=== PATIENT | male | born 1965 | race Caucasian/White ===

== ENCOUNTER 2020-06-12 16:08 | Outpatient (CLI) | payer OTHER, SELFPAY ==
[2020-06-12 16:34] LABS: Basophils Percent Auto 0.8 % (0.2-1.2); Hematocrit 30.3 % (42.0-52.0); Hemoglobin 9.7 g/dL (14.0-18.0); Immature Granulocyte Absolute 0.01 K/mm3 (0.00-0.031); Immature Granulocyte Percent A 0.8 % (0-0.5); Immature Platelet Fraction Pct 2.2 % (0.9-11.2); Lymphocytes Absolute Auto 0.63 K/mm3 (0.9-3.2); Lymphocytes Percent Auto 51.6 % (18.3-44.2); Mean Corpuscular Hemoglobin 29.8 pg (26-34); Mean Corpuscular Volume 93.2 fl (80-100); Mean Platelet Volume 9.1 fl (7.4-10.4); Monocytes Absolute Auto 0.2 K/mm3 (0.1-0.6); Monocytes Percent Auto 14.8 % (2.6-8.5); Neutrophils Absolute Auto 0.4 K/mm3 (1.3-6.7); Nucleated Red Blood Cells Perc 3.3 % (0.0-0.2); Platelet Count Result 56 k/mm3 (150-375); Red Blood Count 3.25 M/mm3 (4.6-6.20); Red Cell Distribution Width 20.3 % (11.5-14.5)
[2020-06-12 16:47] LABS: Alanine Aminotransferase 14 U/L (4-50); Albumin Level 4.3 g/dL (3.5-5.1); Alkaline Phosphatase 42 U/L (38-126); Anion Gap 7 mmol/L (8-16); Aspartate Amino Transferase 24 U/L (17-59); Bilirubin,Total 0.9 mg/dL (0.2-1.3); Blood Urea Nitrogen 18 mg/dL (9-20); Calcium 9.6 mg/dL (8.4-10.2); Carbon Dioxide 31 mmol/L (22-30); Chloride 103 mmol/L (98-107); Estimated Glomerular Filt Rate > 60; Glucose 96 mg/dL (75-110); Potassium 4.5 mmol/L (3.4-5.0); Sodium 141 mmol/L (137-145)
[2020-06-12 17:00] LABS: White Blood Count 1.2 K/mm3 (4.5-10.0)
[2020-06-12 17:04] LABS: Add Urine Microscopic? YES; Appearance Urine Clear (Clear); Bacteria Urine Trace /hpf; Bilirubin Urine Negative (Negative); Blood Urine Negative (Negative); Color Urine Yellow (Yellow); Glucose Urine UA Negative (Negative); Ketones Urine Negative (Negative); Leukocyte Esterase Ur Negative LEU/UL (NEGATIVE); Mucus Urine Few /lpf; Nitrate Urine Negative (Negative); Protein Urine Negative (Negative); RBC Urine 0-2 /hpf (0-2); Specific Grav Ur 1.023 (1.001-1.035); Urobilinogen Urine Negative mg/dL (<2.0); WBC Urine 0-3 /hpf (0-3)
[2020-06-12 17:17] LABS: Prostate Specific Antigen < 0.1 ng/mL (< OR = 4.0)
[2020-06-12 17:35] LABS: Hemoglobin A1C 5.3 % (<5.7)
== END 2020-06-12 16:09 | disposition home or self-care (01) ==
PROVIDERS: PCP Family Medicine; Visit Provider Physician Assistant
DX: C61 Malignant neoplasm of prostate (principal); R10.9 Unspecified abdominal pain
CPT/HCPCS: 36415; 80053; 81001; 83036; 84153; 84443; 85025; 85055

== ENCOUNTER → 2020-06-16 12:34 | Outpatient (CLI) | payer OTHER, SELFPAY ==
--- NOTE | ~2020-06-16 | US_ITS ---
EXAMINATION: US soft tissue abdomen EXAM DATE: 06/16/2020 13:41 INDICATION: Left upper quadrant palpable area. TECHNIQUE: Multiple grayscale and Doppler images of the symptomatic left upper quadrant region were o btained (by a technologist who performed the scan) and subsequently reviewed. There is no prior stud y for comparison. FINDINGS: Palpable abnormality corresponds to a spleen measured at 19.3 x 9.6 cm, which is significantly enlarg ed. Within this there is a nonspecific 1.6 cm hypoechoic region. Please note that most focal splenic lesions are benign. IMPRESSION: 1. Moderate to severe splenomegaly. 2. Small nonspecific splenic lesion. Reviewed, dictated and finalized at location B.
== END ==
PROVIDERS: PCP Family Medicine; Visit Provider Physician Assistant
DX: R19.00 Intra-abdominal and pelvic swelling, mass and lump, unspecified site (principal); R68.81 Early satiety; R16.1 Splenomegaly, not elsewhere classified
CPT/HCPCS: 76705

== ENCOUNTER 2020-06-17 21:57 | Emergency (ER) | payer OTHER, SELFPAY ==
--- NOTE | ~2020-06-17 | CT_ITS ---
EXAMINATION: CT abdomen pelvis w con INDICATION: Abdominal pain and swelling TECHNIQUE: Computed tomographic images of the abdomen and pelvis were obtained after the administrati on of 100 cc of Omnipaque 350 intravenous contrast. The dose-length product (DLP) was 593.02 mGy-cm. Automated exposure control and iterative reconstruction technique were employed. COMPARISON: None available FINDINGS: Minimal dependent atelectasis is present in the lung bases. The heart size is normal. The l iver, pancreas, gallbladder, and adrenal glands are normal. The enlarged spleen measures 19.9 cm. The re is a 4.5 cm cyst of the right kidney. The left kidney is unremarkable. No pathologically enlarged abdominal or pelvic lymph nodes are identified. There is no free intraperitoneal gas or evidence of b owel obstruction. The appendix is normal. A fat-containing umbilical hernia is noted. There is mild l umbar spondylosis. IMPRESSION: 1. Nonspecific splenomegaly. Reviewed, dictated and finalized at location A.
[2020-06-17 22:00] VITALS: BP 138/69; PULSE 75; RESP 16; TEMP 36.2; O2SAT 100
[2020-06-17 22:17] LABS: Hematocrit 30.3 % (42.0-52.0); Hemoglobin 9.7 g/dL (14.0-18.0); Immature Platelet Fraction Pct 2.2 % (0.9-11.2); Mean Corpuscular Volume 93.8 fl (80-100); Mean Platelet Volume 9.2 fl (7.4-10.4); Platelet Count Result 49 k/mm3 (150-375); Red Blood Count 3.23 M/mm3 (4.6-6.20); Red Cell Distribution Width 19.9 % (11.5-14.5)
[2020-06-17 22:27] LABS: Alanine Aminotransferase 16 U/L (4-50); Albumin Level 4.5 g/dL (3.5-5.1); Alkaline Phosphatase 47 U/L (38-126); Anion Gap 9 mmol/L (8-16); Aspartate Amino Transferase 29 U/L (17-59); Bilirubin,Total 1.3 mg/dL (0.2-1.3); Blood Urea Nitrogen 16 mg/dL (9-20); Calcium 9.1 mg/dL (8.4-10.2); Carbon Dioxide 28 mmol/L (22-30); Chloride 104 mmol/L (98-107); Estimated CRCL calculation 67 ml/min; Estimated Glomerular Filt Rate > 60; Glucose 96 mg/dL (75-110); Lipase 58 U/L (23-300); Potassium 3.9 mmol/L (3.4-5.0); Sodium 141 mmol/L (137-145)
[2020-06-17 22:36] LABS: White Blood Count 1.1 K/mm3 (4.5-10.0)
[2020-06-17 22:37] LABS: Lymphocytes Absolute Manual 0.66 K/mm3 (1.1-4.5); Neutrophils Percent Manual 40 % (46-73); Platelet Estimate Decreased (Adequate); Total Cells Counted 10
[2020-06-17 22:38] LABS: Anisocytosis 3+ (NORMAL); Hypochromasia 1+ (NORMAL)
[2020-06-17 22:39] LABS: Polychromasia 1+ (NORMAL)
[2020-06-17 22:40] LABS: Ovalocytes 1+ (NORMAL)
--- NOTE | 2020-06-17 22:54 | ED.GENADULT ---
HPI - General Adult General Chief complaint: Abdominal Pain Stated complaint: abd pain, ROSSI Time Seen by Provider: 06/17/20 22:41 Source: patient History of Present Illness HPI narrative: Patient is a 54 y/o male complaining right side headache starting 4-5 hours ago. He describes his headache as an ache and rates it as 7/10. He has history of migraine and this headache feels like a migraine. He took Rizatriptan for migraine, but it did not help immediately. He has some nausea. He also noticed a knot on left upper abdomen. There is no significant abdominal pain. Related Data Home Medications Medication Instructions Recorded Confirmed urbnrwrrlh-asqvnlz-kvtttxfc 50 1 tablet PO Q4-6H PRN 08/22/19 mg-325 mg-40 mg tablet multivitamin 1 tablet PO DAILY 08/22/19 omeprazole 20 mg capsule,delayed 20 mg PO BID 08/22/19 release sildenafil 100 mg tablet 100 mg PO DAILY PRN 08/22/19 Allergies Allergy/AdvReac Type Severity Reaction Status Date / Time No Known Allergies Allergy Unverified 06/12/20 15:46 Review of Systems Constitutional: Constitutional: Denies chills, Denies fever(s), Reports headache(s) and Denies weakness Eyes: Eyes: Denies blurry vision ENT: Reports headache(s) and Denies neck pain Cardiovascular: Cardiovascular: Denies chest pain and Denies dyspnea Respiratory: Respiratory: Denies cough and Denies dyspnea Gastrointestinal: Gastrointestinal: Reports as per HPI, Denies abdominal pain, Denies diarrhea, Reports nausea and Denies vomiting Comments: abdominal mass Genitourinary: Genitourinary: Denies hematuria and Denies dysuria Musculoskeletal: Musculoskeletal: Denies back pain and Denies neck pain Neurologic: Reports headache(s) and Denies weakness [facility] Past Medical History Medical History Cubital tunnel syndrome on left Medial epicondylitis, left elbow Nevus of scalp Surgical History Surgical History S/P prostatectomy Family History Family History Father Malignant neoplasm of prostate Family history of malignant neoplasm of brain Social History Social History Smoking status: Never smoker Alcohol intake: never Substance use: never Gender identity (if verbalized by the patient): Male Exam Const: General: no acute distress and well developed Orientation/consciousness: oriented to person, oriented to place, oriented to time and patient oriented x3 HENMT: Head: normocephalic Ears: external ears normal General nose exam: Normal external nose present Eyes: General: appearance normal, both eyes and all related structures Conjunctivae: conjunctivae normal Neck: Neck: normal visual inspection and full ROM Chest: Chest palpation & inspection: normal inspection of the chest and no tenderness Resp: Effort & Inspection: normal respiratory effort Auscultation: clear to auscultation bilaterally Cardio: Rate: regular rate Rhythm: regular rhythm GI: GI Palp: No abdominal tenderness, Yes Soft to palpation and Yes Palpable mass present (left upper quadrant) Skin: General skin exam: normal color and turgor normal Neuro: General: oriented to person, oriented to place, oriented to time and patient oriented x3 Cognition (Neuro): normal cognition Extrem: General: normal to inspection, full ROM and no pedal edema Psych: Appearance: grossly normal Mental Status: mental status grossly normal Affect: normal affect Course Consultations Consultation #1: Discussed with Dr. Borja (hem/onc) regarding patient's pancytopenia and splenomegaly, who recommends discharge and he will follow up as outpatient. Date: 06/17/20 Time: 23:55 Vital Signs Vital signs: Vital Signs Temperature 36.2 C L 06/17/20 22:00 Pulse Rate 75 06/17/20 22:00 Respiratory Rate 16 06/17/20 22:00
[2020-06-17 22:58] LABS: Add Urine Microscopic? NO; Appearance Urine Clear (Clear); Bilirubin Urine Negative (Negative); Blood Urine Negative (Negative); Color Urine Straw (Yellow); Glucose Urine UA Negative (Negative); Ketones Urine Negative (Negative); Leukocyte Esterase Ur Negative LEU/UL (Negative); Nitrate Urine Negative (Negative); Protein Urine Negative (Negative); Specific Grav Ur 1.006 (1.001-1.035); Urobilinogen Urine Negative mg/dL (<2.0)
[2020-06-17] MEDS: KETOROLAC 15 MG/ML VIAL (*BKC) IV PUSH (23:08)
[2020-06-17] MEDS: diphenhydrAMINE HCl INJ 50 MG/ML VIAL 25 MG IV PUSH (23:08)
[2020-06-17] MEDS: METOCLOPRAMIDE HCL INJ 10 MG/2 ML VIAL IV PUSH (23:08)
[2020-06-17] MEDS: SODIUM CHLORIDE 0.9% IV 1,000 ML 999 ML IV CONT (23:09)
[2020-06-17 23:15] LABS: Monoscreen Negative (Negative); Negative Monotest Control Negative (Negative); Positive Monotest Control Positive (Positive)
[2020-06-18 00:15] VITALS: BP 128/70; PULSE 86; RESP 18; O2SAT 100
--- NOTE | 2020-06-18 00:15 | PC.NURSE ---
pt requesting to have fluids stopped at this time. 400mL infused as stated per MAR.
== END 2020-06-18 00:17 | disposition home or self-care (01) ==
PROVIDERS: Emergency Medicine; Emergency Provider Emergency Medicine; PCP Family Medicine
DX: G43.909 Migraine, unspecified, not intractable, without status migrainosus (principal); D61.818 Other pancytopenia; R16.1 Splenomegaly, not elsewhere classified; Z90.79 Acquired absence of other genital organ(s)
CPT/HCPCS: 36415; 74177; 80053; 81003; 83690; 85025; 85055; 86308; 96361; 96374; 96375; 99284; J1200; J1885; J2765; J7030; Q9967

== ENCOUNTER 2020-10-21 09:49 | Outpatient (CLI) | payer OTHER, SELFPAY ==
[2020-10-21 10:17] LABS: Cholesterol 132 mg/dL (0-200); HDL Direct 56 mg/dL; Triglycerides 56 mg/dL (<150)
[2020-10-21 10:29] LABS: LDL Cholesterol Direct 56 mg/dL
== END 2020-10-21 09:50 | disposition home or self-care (01) ==
LOC: ANHLAB 09:51
PROVIDERS: PCP Family Medicine; Visit Provider Family Medicine
DX: E78.5 Hyperlipidemia, unspecified (principal); I10 Essential (primary) hypertension
CPT/HCPCS: 36415; 80061

== ENCOUNTER 2020-10-25 19:39 | Emergency (ER) | payer OTHER, SELFPAY ==
--- NOTE | ~2020-10-25 | CT_ITS ---
EXAMINATION: CT abdomen pelvis w con DATE: 10/25/2020 21:30 INDICATION: Pelvic pain TECHNIQUE: Computed tomography (CT) of the abdomen and pelvis was performed with 100 mL Omnipaque-350 intravenous contrast. Automated exposure control and iterative reconstruction technique were employe d. The dose-length product was 367.63 mGy-cm. COMPARISON: 06/17/2020 FINDINGS: Minimal dependent atelectasis in the bilateral lower lobes. Heart size is normal. No pericardial or p leural effusion. Mild central intrahepatic third ductal dilation. Common bile duct is normal in calib er. Normal decompressed gallbladder. Increase, left kidney and bilateral adrenal glands are normal. 4 .1 cm partially exophytic cyst at the lower pole of the right kidney. There is a tiny subtle central density suggesting a thin septation which would render this a Bosniak 2 cyst. Spleen is now normal wi th resolution of prior splenomegaly. Bladder is normal. Status post prostatectomy. No abnormal bowel wall thickening or obstruction. Normal appendix. No free intraperitoneal gas or fluid. No pathologica lly enlarged abdominal or pelvic lymphadenopathy. Small fat-containing umbilical hernia. Mild lumbar dextrocurvature. A few bone islands in the bilateral femoral heads and at the right supra-acetabular region. IMPRESSION: 1. No acute intra-abdominal/pelvic process. Reviewed, dictated and finalized at location A. DATION COORDINATOR
[2020-10-25 19:46] VITALS: BP 130/74; PULSE 63; RESP 16; TEMP 36.3; O2SAT 99
[2020-10-25 21:05] LABS: Basophils Percent Auto 0.4 % (0.2-1.2); Eosinophils Percent Auto 0.4 % (0-4.4); Hematocrit 38.7 % (42.0-52.0); Hemoglobin 12.5 g/dL (14.0-18.0); Immature Granulocyte Absolute 0.02 K/mm3 (0.00-0.031); Immature Granulocyte Percent A 0.9 % (0-0.5); Immature Platelet Fraction Pct 2.6 % (0.9-11.2); Lymphocytes Absolute Auto 0.28 K/mm3 (0.9-3.2); Lymphocytes Percent Auto 12.3 % (18.3-44.2); Mean Corpuscular HGB Conc 32.3 g/dl (32-36); Mean Corpuscular Hemoglobin 30.8 pg (26-34); Mean Corpuscular Volume 95.3 fl (80-100); Monocytes Absolute Auto 0.2 K/mm3 (0.1-0.6); Monocytes Percent Auto 8.8 % (2.6-8.5); Neutrophils Absolute Auto 1.8 K/mm3 (1.3-6.7); Neutrophils Percent Auto 77.2 % (45.5-73.1); Platelet Count Result 126 k/mm3 (150-375); Red Blood Count 4.06 M/mm3 (4.6-6.20); Red Cell Distribution Width 16.5 % (11.5-14.5); White Blood Count 2.3 K/mm3 (4.5-10.0)
[2020-10-25 21:08] LABS: Add Urine Microscopic? NO; Appearance Urine Clear (Clear); Bilirubin Urine Negative (Negative); Blood Urine Negative (Negative); Color Urine Yellow (Yellow); Glucose Urine UA Negative (Negative); Ketones Urine Negative (Negative); Leukocyte Esterase Ur Negative LEU/UL (Negative); Nitrate Urine Negative (Negative); Protein Urine Negative (Negative); Specific Grav Ur 1.024 (1.001-1.035); Urobilinogen Urine Negative mg/dL (<2.0)
[2020-10-25 21:17] LABS: Alanine Aminotransferase 37 U/L (4-50); Alkaline Phosphatase 52 U/L (38-126); Anion Gap 5 mmol/L (8-16); Aspartate Amino Transferase 33 U/L (17-59); Bilirubin,Total 0.7 mg/dL (0.2-1.3); Blood Urea Nitrogen 20 mg/dL (9-20); Calcium 9.3 mg/dL (8.4-10.2); Carbon Dioxide 30 mmol/L (22-30); Chloride 106 mmol/L (98-107); Estimated Glomerular Filt Rate > 60; Glucose 117 mg/dL (75-110); Potassium 4.5 mmol/L (3.4-5.0); Sodium 141 mmol/L (137-145)
[2020-10-25 21:36] LABS: Lactic Acid Reflex 0.9 mmol/L (0.7-2.1)
--- NOTE | 2020-10-25 22:22 | ED.GENADULT ---
HPI - General Adult General Chief complaint: Unspecified Stated complaint: rectal pain X 1 month Time Seen by Provider: 10/25/20 20:15 History of Present Illness HPI narrative: Patient is a 55-year-old gentleman who presents the emergency department with chief complaint of rectal pressure. Patient states that he has a fullness in his rectal area and states that he has had no fever or chills does report that he has history of hairy cell leukemia. And is actually been having low white blood cell counts. The patient states that he has had chronic loose stool from the medications that he has been on denies any burning with urination or frequent urination. Patient reports he has been seen by his primary care physician who did an external exam and did not find any abnormalities. Related Data Home Medications Medication Instructions Recorded Confirmed pcsyzmuomg-elwmuxx-uxmkamsv 50 1 tablet PO Q4-6H PRN 08/22/19 10/21/20 mg-325 mg-40 mg tablet multivitamin 1 tablet PO DAILY 08/22/19 10/21/20 omeprazole 20 mg capsule,delayed 20 mg PO BID 08/22/19 10/21/20 release sildenafil 100 mg tablet 100 mg PO DAILY PRN 08/22/19 10/21/20 Allergies Allergy/AdvReac Type Severity Reaction Status Date / Time prochlorperazine AdvReac Other Verified 10/25/20 19:50 [From Compazine] Review of Systems Review of Systems: Narrative: A 10 system review of systems was completed on the patient and is negative except for what is stated in the HPI. Nursing and ancillary documentation was reviewed. [facility] Past Medical History Medical History Cubital tunnel syndrome on left Hairy cell leukemia Medial epicondylitis, left elbow Nevus of scalp Surgical History Surgical History S/P prostatectomy Family History Family History Father Malignant neoplasm of prostate Family history of malignant neoplasm of brain Social History Social History Smoking status: Never smoker Alcohol intake: never Substance use: never Gender identity (if verbalized by the patient): Male Exam Narrative: Exam Narrative: GENERAL: Well-appearing, well-nourished, and in no acute distress. HEAD: Normocephalic, atraumatic. EYES: PERRLA and EOMI. ENT: Nares clear, no rhinorrhea or epistaxis. Mucous membranes moist. NECK: Supple. CHEST: Clear to auscultation. No respiratory distress. HEART: Regular rate and rhythm. No murmur heard. Normal peripheral pulses. ABDOMEN: Soft, nontender, nondistended, normal active bowel sounds. EXTREMITIES: Normal range of motion. No edema. SKIN: Warm, dry, no rash. NEURO: No focal deficits. Alert and oriented x3. PSYCH: Normal mood and affect. Course Vital Signs Vital signs: Vital Signs Temperature 36.3 C L 10/25/20 19:46 Pulse Rate 63 10/25/20 19:46 Respiratory Rate 16 10/25/20 19:46 Blood Pressure 130/74 10/25/20 19:46 Pulse Oximetry 99 10/25/20 19:46 Temperature 36.3 C L 10/25/20 19:46 Pulse Rate 63 10/25/20 19:46 Respiratory Rate 16 10/25/20 19:46 Blood Pressure 130/74 10/25/20 19:46 Pulse Oximetry 99 10/25/20 19:46 Medical Decision Making Vital Signs Vital Signs: Vital Signs Temperature 36.3 C L 10/25/20 19:46 Pulse Rate 63 10/25/20 19:46 Respiratory Rate 16 10/25/20 19:46 Blood Pressure 130/74 10/25/20 19:46 Pulse Oximetry 99 10/25/20 19:46 Temperature 36.3 C L 10/25/20 19:46 Pulse Rate 63 10/25/20 19:46 Respiratory Rate 16 10/25/20 19:46 Blood Pressure 130/74 10/25/20 19:46 Pulse Oximetry 99 10/25/20 19:46 Lab Data Result diagrams: 10/25/20 20:56 10/25/20 20:56 Labs: Lab Results 10/25/20 10/25/20 10/25/20 Range/Units 20:56 20:56 21:01 WBC 2.3
[2020-10-25 23:11] VITALS: BP 100/53; PULSE 70; RESP 18; O2SAT 97
== END 2020-10-25 23:12 | disposition home or self-care (01) ==
PROVIDERS: Emergency Provider Emergency Medicine; PCP Family Medicine
DX: K62.89 Other specified diseases of anus and rectum (principal); Z90.79 Acquired absence of other genital organ(s); Z85.6 Personal history of leukemia
CPT/HCPCS: 36415; 74177; 80053; 81003; 83605; 85025; 85055; 99284; Q9967

== ENCOUNTER 2020-12-10 18:07 | Emergency (ER) | payer OTHER, SELFPAY ==
[2020-12-10 18:16] VITALS: BP 131/75; PULSE 75; RESP 17; TEMP 35.8; O2SAT 99
[2020-12-10 18:50] VITALS: BP 125/81; PULSE 67; RESP 16; O2SAT 100
--- NOTE | 2020-12-10 18:57 | ED.HA ---
HPI - Headache General Chief Complaint: Headache Stated Complaint: migraine Time Seen by Provider: 12/10/20 18:32 Source: patient Mode of arrival: ambulatory Limitations: no limitations History of Present Illness HPI Narrative: 55-year-old male Diagnosed history of of migraines and is treated with abortive triptans and Fiorinal by his physician Report of headache starting 2 days ago that seemed like a fairly typical migraine, and initially did respond to his medications however subsequently the headache returned yesterday and then again today with decreased responsiveness to the meds each time She has not actually taken any vkgs-mbj-xqzxzzl pain relievers, at least with regards to ibuprofen he prefers to avoid it if he can because his platelets are little low, last time they were checked roughly 130,000 He has some nausea, but no fever and no other focal neurologic symptoms and no stiff neck Past history of note is that he has hairy cell lymphoma and was treated for that about 5 months ago and the only thing that is currently happening is is counts are being followed Related Data Home Medications Medication Instructions Recorded Confirmed yciknrotsf-vprarvx-chbulocc 50 1 tablet PO Q4-6H PRN 08/22/19 10/21/20 mg-325 mg-40 mg tablet multivitamin 1 tablet PO DAILY 08/22/19 10/21/20 omeprazole 20 mg capsule,delayed 20 mg PO BID 08/22/19 10/21/20 release sildenafil 100 mg tablet 100 mg PO DAILY PRN 08/22/19 10/21/20 Allergies Allergy/AdvReac Type Severity Reaction Status Date / Time prochlorperazine AdvReac Other Verified 12/10/20 18:40 [From Compazine] Review of Systems Review of Systems: All systems reviewed & are unremarkable except as noted in HPI and below Constitutional: Constitutional: Denies chills, Reports fatigue, Denies fever(s), Denies headache(s) and Reports weakness Eyes: Eyes: Reports no additional eye complaints and Denies change in vision ENT: Denies headache(s), Denies epistaxis, Denies nasal congestion and Denies sore throat Comments: No sinus troubles Cardiovascular: Cardiovascular: Denies chest pain, Denies leg edema, Denies palpitations and Denies dyspnea Respiratory: Respiratory: Denies cough and Denies dyspnea Gastrointestinal: Gastrointestinal: Denies abdominal pain, Denies diarrhea, Reports nausea and Denies vomiting Musculoskeletal: Musculoskeletal: Denies deformity, Denies muscle weakness and Denies numbness Integumentary/Breasts: Skin/Breast: Denies wounds Neurologic: Denies headache(s), Denies focal weakness, Denies numbness and Denies weakness Psychiatric: Psychiatric: Reports no additional psychiatric complaints Endocrine: Endocrine: Denies fatigue and Denies palpitations PMFSH Past Medical History Medical History Cubital tunnel syndrome on left Hairy cell leukemia Medial epicondylitis, left elbow Nevus of scalp Surgical History Surgical History S/P prostatectomy Family History Family History Father Malignant neoplasm of prostate Family history of malignant neoplasm of brain Social History Social History Smoking status: Never smoker Alcohol intake: never Substance use: never Gender identity (if verbalized by the patient): Male Exam Const: General: no acute distress, well developed, alert and awake Orientation/consciousness: patient oriented x3 (alert) HENMT: Head: normocephalic and atraumatic Ears: external ears normal General nose exam: No nasal discharge present and no epistaxis Face and sinus: face symmetric Other: Sinuses nontender Eyes: Conjunctivae: conjunctivae normal Sclera: sclerae normal EOM: EOMs intact bilaterally Neck: Neck: no lymphadenopathy, no meningeal signs, supp
[2020-12-10] MEDS: LACTATED RINGERS 1,000 ML 999 ML IV CONT (19:04)
[2020-12-10] MEDS: METOCLOPRAMIDE HCL INJ 10 MG/2 ML VIAL IV PUSH (19:05)
[2020-12-10] MEDS: diphenhydrAMINE HCl INJ 50 MG/ML VIAL 25 MG IV PUSH (19:07)
[2020-12-10 19:10] LABS: Basophils Percent Auto 0.6 % (0.2-1.2); Hematocrit 47.6 % (42.0-52.0); Hemoglobin 15.7 g/dL (14.0-18.0); Immature Granulocyte Absolute 0.02 K/mm3 (0.00-0.031); Immature Granulocyte Percent A 0.6 % (0-0.5); Immature Platelet Fraction Pct 3.1 % (0.9-11.2); Lymphocytes Absolute Auto 0.31 K/mm3 (0.9-3.2); Lymphocytes Percent Auto 10.1 % (18.3-44.2); Mean Corpuscular Hemoglobin 29.8 pg (26-34); Mean Corpuscular Volume 90.3 fl (80-100); Monocytes Absolute Auto 0.3 K/mm3 (0.1-0.6); Monocytes Percent Auto 8.1 % (2.6-8.5); Neutrophils Absolute Auto 2.5 K/mm3 (1.3-6.7); Neutrophils Percent Auto 79.6 % (45.5-73.1); Platelet Count Result 138 k/mm3 (150-375); Red Blood Count 5.27 M/mm3 (4.6-6.20); Red Cell Distribution Width 15.9 % (11.5-14.5); White Blood Count 3.1 K/mm3 (4.5-10.0)
[2020-12-10 20:29] VITALS: BP 125/73; PULSE 68; RESP 18; TEMP 36.8; O2SAT 100
== END 2020-12-10 20:30 | disposition home or self-care (01) ==
PROVIDERS: Emergency Provider Emergency Medicine; PCP Family Medicine
DX: G43.909 Migraine, unspecified, not intractable, without status migrainosus (principal)
CPT/HCPCS: 36415; 85025; 85055; 96361; 96374; 96375; 99284; J1100; J1200; J2765; J7120

== ENCOUNTER 2021-02-14 08:44 | Outpatient (CLI) | payer OTHER, SELFPAY ==
--- NOTE | ~2021-02-14 | US_ITS ---
EXAMINATION: US scrotum doppler EXAM DATE: 02/14/2021 09:40 INDICATION: N50.812 - Left testicular pain. TECHNIQUE: Multiple grayscale and Doppler images of the testicles and scrotum were obtained bilateral ly. Comparison is made to prior examination from 01/02/2016. FINDINGS: Right testicle measures 4.5 x 2.5 x 2.3 cm and is morphologically normal. Low resistance Doppler capo w confirmed. The epididymis is unremarkable. There is no hydrocele or varicocele. Left testicle measures 4.4 x 2.5 x 2.3 cm and is morphologically normal. Low resistance Doppler flow confirmed. The epididymis is unremarkable. There is a small varicocele. Previously seen approximately 2 cm heterogeneous region in the left epididymis is no longer identifie d. IMPRESSION: 1. Small left varicocele. Reviewed, dictated and finalized at location A. IMPRESSION: 1. Small left varicocele.
== END 2021-02-14 08:45 | disposition home or self-care (01) ==
PROVIDERS: PCP Family Medicine; Visit Provider Family Medicine
DX: N50.812 Left testicular pain (principal); I86.1 Scrotal varices
CPT/HCPCS: 76870; 93976

== ENCOUNTER 2021-05-23 09:13 | Outpatient (CLI) | payer OTHER, SELFPAY ==
[2021-05-23 10:01] LABS: Add Urine Microscopic? NO; Appearance Urine Clear (Clear); Bilirubin Urine Negative (Negative); Blood Urine Negative (Negative); Color Urine Straw (Yellow); Glucose Urine UA Negative (Negative); Ketones Urine Negative (Negative); Leukocyte Esterase Ur Negative LEU/UL (NEGATIVE); Nitrate Urine Negative (Negative); Protein Urine Negative (Negative); Specific Grav Ur 1.009 (1.001-1.035); Urobilinogen Urine Negative mg/dL (<2.0)
[2021-05-23 10:15] LABS: Alanine Aminotransferase 21 U/L (4-50); Albumin Level 4.3 g/dL (3.5-5.1); Alkaline Phosphatase 43 U/L (38-126); Anion Gap 6 mmol/L (8-16); Aspartate Amino Transferase 26 U/L (17-59); Bilirubin,Total 0.9 mg/dL (0.2-1.3); Blood Urea Nitrogen 14 mg/dL (9-20); Calcium 9.3 mg/dL (8.4-10.2); Carbon Dioxide 31 mmol/L (22-30); Chloride 103 mmol/L (98-107); Cholesterol 183 mg/dL (0-200); Estimated Glomerular Filt Rate > 60; Glucose 97 mg/dL (65-110); HDL Direct 63 mg/dL; Sodium 140 mmol/L (137-145); Triglycerides 61 mg/dL (<150)
[2021-05-23 10:26] LABS: LDL Cholesterol Direct 78 mg/dL
[2021-05-23 10:43] LABS: Prostate Specific Antigen < 0.1 ng/mL (< OR = 4.0)
== END 2021-05-23 09:14 | disposition home or self-care (01) ==
LOC: ANHLAB 09:15
PROVIDERS: PCP Family Medicine; Visit Provider Family Medicine
DX: Z00.00 Encounter for general adult medical examination without abnormal findings (principal); E78.5 Hyperlipidemia, unspecified; R53.83 Other fatigue; Z85.46 Personal history of malignant neoplasm of prostate
CPT/HCPCS: 36415; 80053; 80061; 81003; 84153; 84443

== ENCOUNTER 2021-08-28 09:12 | Emergency (ER) | payer OTHER, SELFPAY ==
--- NOTE | ~2021-08-28 | CT_ITS ---
EXAMINATION: CT cervical spine wo con EXAM DATE: 08/28/2021 12:40 INDICATION: neck pain radiating into left shoulder . History of leukemia. Burning sensation. TECHNIQUE: Spiral CT of the cervical spine was performed without contrast. Axial images were reviewe d. Coronal and sagittal reformatted images cervical spine were also reviewed. The dose-length produc t (DLP) for this examination was 346.79 mGy-cm. The exposure was tailored according to patient size (auto mA exposure control), and iterative reconstruction (ASIR) was used as additional dose reduction technique. There is no prior study for comparison. FINDINGS: Small hemangioma in the right lateral mass of C1. There are no osteoblastic or osteolytic lesions identified. The vertebral bodies are aligned in the AP dimension. There is mild disc disease from C3 through C6. Vertebral body heights are maintained. The odontoid process is intact. The late ral masses of C1 line up with C2. Prevertebral soft tissue and pre-dens space are within normal limit s. Paraspinal soft tissue is unremarkable. Mastoid air cells are well aerated. Level by level evaluation: C2-C3: Disc does not extend beyond the endplate margin. Uncovertebral joint arthropathy: Mild left. Facet joint arthropathy: Mild bilateral. Neural foraminal stenosis: No stenosis. Central canal stenosis: No stenosis. C3-C4: Disc does not extend beyond the endplate margin. Uncovertebral joint arthropathy: None. Facet joint arthropathy: Mild bilateral. Neural foraminal stenosis: No stenosis. Central canal stenosis: No stenosis. C4-C5: There is a mild diffuse disc bulge. Uncovertebral joint arthropathy: Mild left. Facet joint arthropathy: Mild bilateral. Neural foraminal stenosis: No stenosis. Central canal stenosis: No stenosis. C5-C6: There is a mild diffuse disc bulge. Uncovertebral joint arthropathy: Mild to moderate right, mild left. Facet joint arthropathy: Mild bilateral. Neural foraminal stenosis: Mild right. Central canal stenosis: Mild. C6-C7: There is a minimal diffuse disc bulge. Uncovertebral joint arthropathy: Mild bilateral. Facet joint arthropathy: Mild bilateral. Neural foraminal stenosis: No stenosis. Central canal stenosis: No stenosis. C7-T1: Disc does not extend beyond the endplate margin. Uncovertebral joint arthropathy: None. Facet joint arthropathy: Mild bilateral. Neural foraminal stenosis: No stenosis. Central canal stenosis: No stenosis. IMPRESSION: Mild cervical spondylosis. Reviewed, dictated and finalized at location B. OSITE TECHNICIAN IMPRESSION: Mild cervical spondylosis.
--- NOTE | ~2021-08-28 | XR_ITS ---
EXAMINATION: XR shoulder LT min 2V DATE: 08/28/2021 11:20 INDICATION: Left shoulder pain. Fall. TECHNIQUE: 4 views of left shoulder were obtained. COMPARISON: None. FINDINGS: Bone alignment is normal. No fracture. Joint spaces are normal. IMPRESSION: 1. Normal left shoulder. Reviewed, dictated and finalized at location A. RONMENTAL PLANNING ENGINEER IMPRESSION: 1. Normal left shoulder.
--- NOTE | 2021-08-28 09:13 | ECG_ITS ---
Measurements Intervals [place] Rate: 60 P: 76 WV: 145 QRS: -67 QRSD: 108 T: 56 QT: 392 QTc: 394 Interpretive Statements SINUS RHYTHM POSSIBLE LEFT ATRIAL ENLARGEMENT INCOMPLETE RIGHT BUNDLE BRANCH BLOCK LEFT ANTERIOR FASCICULAR BLOCK BASELINE ARTIFACT- V1 ABNORMAL ECG Electronically Signed On 08-28-2021 12:14:30 REAMING MACHINE OPERATOR FOR PLASTIC by Jayce Worthington D.O.
[2021-08-28 09:25] VITALS: BP 140/80; PULSE 63; RESP 17; TEMP 36.2; O2SAT 100
[2021-08-28 11:04] VITALS: BP 140/80; PULSE 63; RESP 16; TEMP 36.5; O2SAT 100
--- NOTE | 2021-08-28 11:07 | ED.EXTPRO ---
HPI - Extremity Problem General Chief complaint: Extremity Problem,Nontraumatic <Hannah Diaz PA-C - Last Filed: 08/28/21 14:03> Stated complaint: L SHOULDER/NECK PAIN <VILLA Redding Last Filed: 08/28/21 14:03> Time Seen by Provider: 08/28/21 11:06 <Hannah Diaz PA-C - Last Filed: 08/28/21 14:03> Source: patient <VILLA Redding Last Filed: 08/28/21 14:03> Mode of arrival: ambulatory <VILLA Redding Last Filed: 08/28/21 14:03> Limitations: no limitations <Hannah Diaz PA-C - Last Filed: 08/28/21 14:03> History of Present Illness HPI Narrative: This is a 56-year-old male that presents to the emergency department for left-sided neck pain present since last night. Reports a burning, intermittent pain. No known alleviating or exacerbating factors. The pain radiates into his left posterior shoulder. No recent injuries or heavy lifting. Reports at one point the pain was radiating into his jaw which prompted him to be seen. He was concerned he may be having heart problems. No previous cardiac history. Denies chest pain or shortness of breath. <Hannah Diaz PA-C - Last Filed: 08/28/21 14:03> Related Data Home medications: Home Medications Medication Instructions Recorded Confirmed multivitamin 1 tablet PO DAILY 08/22/19 04/21/21 <Hannah Diaz PA-C - Last Filed: 08/28/21 14:03> Allergies/Adverse reactions: Allergies Allergy/AdvReac Type Severity Reaction Status Date / Time prochlorperazine AdvReac Other Verified 08/28/21 12:35 [From Compazine] <VILLA Redding Last Filed: 08/28/21 14:03> Review of Systems Review of Systems: CONSTITUTIONAL: Denies fever CARDIOVASCULAR: Denies chest pain or edema. RESPIRATORY: Denies dyspnea. SKIN: Denies rash MUSCULOSKELETAL: Reports joint pain, and myalgia. NEUROLOGIC: Denies numbness, or weakness. <Hannah Diaz PA-C - Last Filed: 08/28/21 14:03> All systems reviewed & are unremarkable except as noted in HPI and below <Hannah Diaz PA-C - Last Filed: 08/28/21 14:03> PMFSH Past Medical History Medical History: Medical History Cubital tunnel syndrome on left Hairy cell leukemia Medial epicondylitis, left elbow Nevus of scalp <Hannah Diaz PA-C - Last Filed: 08/28/21 14:03> Surgical History Surgical History: Surgical History S/P prostatectomy <Hannah Diaz PA-C - Last Filed: 08/28/21 14:03> Family History Family History: Family History Father Malignant neoplasm of prostate Family history of malignant neoplasm of brain <Hannah Diaz PA-C - Last Filed: 08/28/21 14:03> Social History Social History: Social History Smoking status: Never smoker Second hand tobacco smoke exposure: No Alcohol intake: never Substance use: never Substance use type: does not use Gender identity (if verbalized by the patient): Male Sexual Orientation (if Verbalized by the Patient): Straight or Heterosexual <Hannah Diaz PA-C - Last Filed: 08/28/21 14:03> Exam Narrative: GENERAL: Well-appearing, well-nourished, and in no acute distress. HEAD: Normocephalic, atraumatic. EYES: EOMI. NECK: Supple. No adenopathy or masses. CHEST: Clear to auscultation. No respiratory distress. No wheezes rales or rhonchi HEART: Regular rate and rhythm. No murmur heard. Normal peripheral pulses. EXTREMITIES: Normal range of motion. No edema obvious deformity. Strength equal in bilateral upper extremities (5/5) SKIN: Warm, dry, no rash. NEURO: No focal deficits. Alert and oriented x3. PSYCH: Normal mood and affect <Hannah Diaz PA-C - Last Filed: 08/28/21 14:03> Course Consultations Consultation #1: I did s
[2021-08-28 12:17] LABS: Basophils Percent Auto 0.6 % (0.2-1.2); Eosinophils Percent Auto 0.3 % (0-4.4); Hematocrit 51.6 % (42.0-52.0); Hemoglobin 17.6 g/dL (14.0-18.0); Immature Granulocyte Absolute 0.02 K/mm3 (0.00-0.031); Immature Granulocyte Percent A 0.6 % (0-0.5); Lymphocytes Percent Auto 14.6 % (18.3-44.2); Mean Corpuscular HGB Conc 34.1 g/dl (32-36); Mean Corpuscular Hemoglobin 32.7 pg (26-34); Mean Corpuscular Volume 95.7 fl (80-100); Mean Platelet Volume 10.1 fl (7.4-10.4); Monocytes Absolute Auto 0.2 K/mm3 (0.1-0.6); Neutrophils Absolute Auto 2.7 K/mm3 (1.3-6.7); Neutrophils Percent Auto 78.9 % (45.5-73.1); Platelet Count Result 147 k/mm3 (150-375); Red Blood Count 5.39 M/mm3 (4.6-6.20); Red Cell Distribution Width 13.3 % (11.5-14.5); White Blood Count 3.4 K/mm3 (4.5-10.0)
[2021-08-28 12:34] LABS: Prothrombin Time 12.6 Seconds (11.1-14.7)
[2021-08-28 12:35] LABS: Partial Thromboplastin Time 25.6 SECONDS (22.3-36.8)
[2021-08-28 12:36] LABS: Anion Gap 8 mmol/L (8-16); Blood Urea Nitrogen 13 mg/dL (9-20); Calcium 9.5 mg/dL (8.4-10.2); Carbon Dioxide 27 mmol/L (22-30); Chloride 102 mmol/L (98-107); Estimated CRCL calculation 56 ml/min; Estimated Glomerular Filt Rate 57; Glucose 107 mg/dL (65-110); Potassium 5.1 mmol/L (3.4-5.0); Sodium 137 mmol/L (137-145)
[2021-08-28 12:48] LABS: Troponin I < 0.012 ng/mL (0.000-0.034)
[2021-08-28 14:21] VITALS: BP 138/74; PULSE 74; RESP 14; TEMP 36.7; O2SAT 99
== END 2021-08-28 14:22 | disposition home or self-care (01) ==
PROVIDERS: Physician Assistant; Emergency Provider General Practice; PCP Family Medicine
DX: M54.2 Cervicalgia (principal); E87.5 Hyperkalemia; Z90.79 Acquired absence of other genital organ(s); Z85.6 Personal history of leukemia; M47.812 Spondylosis without myelopathy or radiculopathy, cervical region; I45.10 Unspecified right bundle-branch block; R94.31 Abnormal electrocardiogram [ECG] [EKG]
CPT/HCPCS: 36415; 72125; 73030; 80048; 84484; 85025; 85610; 85730; 93005; 99284

== ENCOUNTER 2021-09-01 16:16 | Outpatient (CLI) | payer OTHER, SELFPAY ==
[2021-09-01 16:47] LABS: Anion Gap 9 mmol/L (8-16); Blood Urea Nitrogen 15 mg/dL (9-20); Calcium 9.4 mg/dL (8.4-10.2); Carbon Dioxide 28 mmol/L (22-30); Chloride 101 mmol/L (98-107); Estimated Glomerular Filt Rate 57; Glucose 96 mg/dL (65-110); Potassium 4.3 mmol/L (3.4-5.0); Sodium 138 mmol/L (137-145)
== END 2021-09-01 16:17 | disposition home or self-care (01) ==
LOC: ANHLAB 16:17
PROVIDERS: PCP Family Medicine; Visit Provider Physician Assistant
DX: E78.5 Hyperlipidemia, unspecified (principal)
CPT/HCPCS: 36415; 80048

== ENCOUNTER 2021-11-26 15:42 | Outpatient (CLI) | payer OTHER, SELFPAY ==
[2021-11-26 16:31] LABS: Add Urine Microscopic? YES; Appearance Urine Clear (Clear); Bilirubin Urine Negative (Negative); Blood Urine 1+ (Negative); Color Urine Straw (Yellow); Glucose Urine UA Negative (Negative); Ketones Urine 1+ mg/dL (Negative); Leukocyte Esterase Ur Negative LEU/UL (NEGATIVE); Mucus Urine Rare /lpf; Nitrate Urine Negative (Negative); Protein Urine Negative (Negative); Urobilinogen Urine Negative mg/dL (<2.0); WBC Urine 0-3 /hpf (0-3)
[2021-11-26 16:34] LABS: Specific Grav Ur 1.004 (1.001-1.035)
== END 2021-11-26 15:43 | disposition home or self-care (01) ==
PROVIDERS: PCP Family Medicine; Visit Provider Nurse Practitioner Family
DX: R94.4 Abnormal results of kidney function studies (principal)
CPT/HCPCS: 81001

== ENCOUNTER 2021-12-02 16:20 | Outpatient (CLI) | payer OTHER, SELFPAY ==
[2021-12-02 17:07] LABS: Add Urine Microscopic? NO; Appearance Urine Clear (Clear); Bilirubin Urine Negative (Negative); Blood Urine Negative (Negative); Color Urine Straw (Yellow); Glucose Urine UA Negative (Negative); Ketones Urine Negative (Negative); Leukocyte Esterase Ur Negative LEU/UL (NEGATIVE); Nitrate Urine Negative (Negative); Protein Urine Negative (Negative); Urobilinogen Urine Negative mg/dL (<2.0)
[2021-12-02 17:10] LABS: Specific Grav Ur 1.004 (1.001-1.035)
[2021-12-02 17:33] LABS: Alanine Aminotransferase 17 U/L (4-50); Albumin Level 4.4 g/dL (3.5-5.1); Alkaline Phosphatase 44 U/L (38-126); Anion Gap 5 mmol/L (8-16); Aspartate Amino Transferase 25 U/L (17-59); Bilirubin,Total 0.7 mg/dL (0.2-1.3); Blood Urea Nitrogen 13 mg/dL (9-20); Calcium 8.9 mg/dL (8.4-10.2); Carbon Dioxide 32 mmol/L (22-30); Chloride 102 mmol/L (98-107); Estimated Glomerular Filt Rate > 60; Glucose 103 mg/dL (65-110); Sodium 139 mmol/L (137-145)
== END 2021-12-02 16:21 | disposition home or self-care (01) ==
PROVIDERS: PCP Family Medicine; Visit Provider Physician Assistant
DX: R31.9 Hematuria, unspecified (principal); R94.4 Abnormal results of kidney function studies
CPT/HCPCS: 36415; 80053; 81003; 87086

== ENCOUNTER 2021-12-22 10:07 | Outpatient (CLI) | payer OTHER, SELFPAY ==
--- NOTE | ~2021-12-22 | XR_ITS ---
EXAMINATION:XR_[id number]_CR DATE: 12/22/2021 10:25 INDICATION: Left arm spasm, fasciculation TECHNIQUE: AP, lateral, and odontoid views of the cervical spine are provided. COMPARISON: None FINDINGS: There is 1 mm of retrolisthesis of C5 on C6. The odontoid is intact. No fracture is identif ied. Vertebral body heights and disk spaces are normal. Prevertebral soft tissues are normal. There i s mild multilevel facet osteoarthritis. IMPRESSION: 1. Mild cervical spondylosis without acute findings. Reviewed, dictated and finalized at location A.
== END 2021-12-22 10:08 | disposition home or self-care (01) ==
PROVIDERS: PCP Family Medicine; Visit Provider Physician Assistant
DX: R25.3 Fasciculation (principal); M47.892 Other spondylosis, cervical region
CPT/HCPCS: 72040

== ENCOUNTER 2022-01-13 12:29 | Outpatient (CLI) | payer OTHER, SELFPAY ==
--- NOTE | ~2022-01-13 | MR_ITS ---
EXAMINATION: MR cervical spine wo con DATE: 01/13/2022 13:15 INDICATION: Fasciculations in right arm. TECHNIQUE: Magnetic resonance imaging (MRI) of the cervical spine was performed without intravenous c ontrast. Sequences included sagittal T2-weighted FSE, sagittal T2-weighted FS FSE, sagittal T1-weight ed FSE, axial MERGE, and axial T2-weighted FSE. COMPARISON: CT cervical spine 08/28/2021 FINDINGS: There is 5 degrees dextrocurvature of cervical spine. Vertebral body heights are normal. Th ere is mildly decreased disc height at C4-C5 and C5-C6. The spinal cord signal intensity is normal. T he following disc levels are specifically discussed: C2-C3: The disc does not extend beyond the endplate margin. There is no uncovertebral joint osteoarth ritis. There is mild bilateral facet joint osteoarthritis. There is no neural foraminal stenosis. The re is no central canal stenosis. C3-C4: The disc does not extend beyond the endplate margin. There is no uncovertebral joint osteoarth ritis. There is mild left facet joint osteoarthritis. There is no neural foraminal stenosis. There is no central canal stenosis. C4-C5: There is a central extrusion. There is no uncovertebral joint osteoarthritis. There is mild fa cet joint osteoarthritis. There is mild left neural foraminal stenosis. There is mild central canal s tenosis. C5-C6: The disc is bulging. There is mild bilateral uncovertebral joint osteoarthritis. There is mild bilateral facet joint osteoarthritis. There is no neural foraminal stenosis. There is mild central c anal stenosis. C6-C7: There is a central protrusion. There is mild left uncovertebral joint osteoarthritis. There is no facet joint osteoarthritis. There is no neural foraminal stenosis. There is no central canal sten osis. C7-T1: The disc does not extend beyond the endplate margin. There is no uncovertebral joint osteoarth ritis. There is moderate right and mild left facet joint osteoarthritis. There is mild right neural f oraminal stenosis. There is no central canal stenosis. IMPRESSION: 1. Mild cervical spondylosis. Reviewed, dictated and finalized at location B.
== END 2022-01-13 12:30 | disposition home or self-care (01) ==
PROVIDERS: PCP Family Medicine; Visit Provider Physician Assistant
DX: R25.3 Fasciculation (principal); M48.02 Spinal stenosis, cervical region; M47.23 Other spondylosis with radiculopathy, cervicothoracic region; M48.03 Spinal stenosis, cervicothoracic region; M43.13 Spondylolisthesis, cervicothoracic region
CPT/HCPCS: 72141

== ENCOUNTER 2022-04-29 15:42 | Outpatient (CLI) | payer OTHER, SELFPAY ==
--- NOTE | ~2022-04-29 | XR_ITS ---
EXAMINATION: XR foot RT min 3V DATE: 04/29/2022 16:07 INDICATION: Right foot numbness. TECHNIQUE: 4 views of right foot were obtained. COMPARISON: None. FINDINGS: Bone alignment is normal. No fracture. There is mild osteoarthritis of first metatarsophala ngeal joint. IMPRESSION: 1. Mild osteoarthritis of first metatarsophalangeal joint. Reviewed, dictated and finalized at location A.
== END 2022-04-29 15:43 | disposition home or self-care (01) ==
PROVIDERS: PCP Family Medicine; Visit Provider Physician Assistant
DX: R20.0 Anesthesia of skin (principal); M19.071 Primary osteoarthritis, right ankle and foot
CPT/HCPCS: 73630

== ENCOUNTER 2023-07-22 07:21 | Outpatient (CLI) | payer OTHER, SELFPAY ==
[2023-07-22 08:30] LABS: Hematocrit 51.9 % (42.0-52.0); Mean Corpuscular HGB Conc 32.8 g/dl (32-36); Mean Corpuscular Hemoglobin 30.7 pg (26-34); Mean Corpuscular Volume 93.7 fl (80-100); Mean Platelet Volume 10.4 fl (7.4-10.4); Platelet Count Result 179 k/mm3 (150-375); Red Blood Count 5.54 M/mm3 (4.6-6.20); Red Cell Distribution Width 13.3 % (11.5-14.5); White Blood Count 4.1 K/mm3 (4.5-10.0)
[2023-07-22 09:05] LABS: Alanine Aminotransferase 16 U/L (6-50); Albumin Level 4.3 g/dL (3.5-5.1); Alkaline Phosphatase 45 U/L (38-126); Anion Gap 6 mmol/L (8-16); Aspartate Amino Transferase 22 U/L (17-59); Bilirubin,Total 1.1 mg/dL (0.2-1.3); Blood Urea Nitrogen 15 mg/dL (9-20); Calcium 9.3 mg/dL (8.4-10.2); Carbon Dioxide 32 mmol/L (22-30); Chloride 101 mmol/L (98-107); Cholesterol 251 mg/dL (0-200); Estimated Glomerular Filt Rate > 60; Glucose 93 mg/dL (65-110); HDL Direct 69 mg/dL; Potassium 4.1 mmol/L (3.4-5.0); Sodium 139 mmol/L (137-145); Triglycerides 98 mg/dL (<150)
[2023-07-22 09:16] LABS: LDL Cholesterol Direct 116 mg/dL
[2023-07-22 09:33] LABS: Appearance Urine Clear (Clear); Bilirubin Urine Negative (Negative); Blood Urine Negative (Negative); Color Urine Yellow (Yellow); Glucose Urine UA Negative (Negative); Ketones Urine Negative (Negative); Leukocyte Esterase Ur Negative LEU/UL (NEGATIVE); Nitrate Urine Negative (Negative); Protein Urine Negative (Negative); Specific Grav Ur 1.016 (1.001-1.035); Urobilinogen Urine 0.2 mg/dL (<2.0); pH Urine 5.5 (5.0-9.0)
[2023-07-22 09:35] LABS: Prostate Specific Antigen < 0.1 ng/mL (< OR = 4.0)
[2023-07-22 10:10] LABS: Add Urine Microscopic? NO
== END 2023-07-22 07:22 | disposition home or self-care (01) ==
LOC: ANHLAB 07:22
PROVIDERS: PCP Family Medicine; Visit Provider Family Medicine
DX: Z00.00 Encounter for general adult medical examination without abnormal findings (principal); Z85.46 Personal history of malignant neoplasm of prostate; E78.5 Hyperlipidemia, unspecified
CPT/HCPCS: 36415; 80053; 80061; 81003; 84153; 84443; 85027

== ENCOUNTER → 2023-09-13 10:18 | Outpatient (REF) | payer OTHER, SELFPAY | LOC: ANHLAB 10:18 | PROVIDERS: PCP Family Medicine; Visit Provider Plastic Surgery | DX: L73.8 Other specified follicular disorders (principal); E75.5 Other lipid storage disorders | CPT/HCPCS: 88305 ==

== ENCOUNTER 2024-07-27 13:01 | Emergency (ER) | payer OTHER, SELFPAY ==
[2024-07-27] VITALS (24 sets, daily range): BP systolic 115–143; BP diastolic 51–83; PULSE 63–80; RESP 12–20; TEMP 36.5; O2SAT 95–100
--- NOTE | ~2024-07-27 | CT_ITS ---
CLINICAL INDICATION: Abnormal CAT scan with abdominal pain. COMPARISON: Contrast-enhanced CT examination of the abdomen and pelvis performed 4 hours earlier. TECHNIQUE: Computed tomography angiography (CTA) of the chest was performed with 100 mL Omnipaque-350 intravenous contrast timed to evaluate the abdominal aorta and mesenteric vasculature. Coronal maxim um intensity projection 3D-reconstructions were created by the technologist. The dose-length product (DLP) was 726.24 mGy-cm. Automated exposure control and iterative reconstruction technique were emplo yed. FINDINGS/OBSERVATIONS: The celiac axis is intact, and gives rise to the splenic artery. A replaced common hepatic artery is incidentally noted as the first branch of the superior mesenteric artery. Following the origin of the replaced common hepatic artery there is a well-circumscribed halo of decr eased attenuation along a short segment of the superior mesenteric artery to the level of the umbilic us (approximately 6 cm). This may represent mural thickening, as one might see with medium vessel vas culitis. No discrete dissection is appreciated on this dedicated CTA imaging. A small outpouching is identified (axial series, image 61 and coronal series image 50) which may repr esent the effect of a vasculitis with associated mural thickening, in an unequal pattern. No discrete secondary effects are present to suggest sequelae of ischemia. The remainder of the examination is unremarkable, and unchanged from study performed approximately 4 hours earlier. 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 No discrete dissection is appreciated. Vascular surgery f ollow-up is suggested, if the patient is clinically able. These findings were discussed with Dr. Browning at the time of examination and subsequent interpretat ion Reviewed, dictated and finalized at location A. 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 No discrete d issection is appreciated. Vascular surgery follow-up is suggested, if the patie nt is clinically able. These findings were discussed with Dr. Browning at the time of examination and subsequent interpretation
--- NOTE | ~2024-07-27 | CT_ITS ---
EXAMINATION: CT abdomen pelvis w con DATE: 07/27/2024 15:34 INDICATION: Lower abdominal pain. TECHNIQUE: Computed tomography (CT) of the abdomen and pelvis was performed with 100 mL Omnipaque 350 intravenous contrast. Automated exposure control and iterative reconstruction technique were employe d. The dose-length product was 575.44 mGy-cm. COMPARISON: CT abdomen and pelvis 10/25/2020 FINDINGS: The visualized portions of lung bases demonstrate mild atelectasis. No pleural effusion. Th e heart size is normal. No pericardial effusion. The liver and spleen are normal. The gallbladder, pa ncreas, adrenal glands, and left kidney are normal. There is a 4.8 cm cyst in right kidney. There is an umbilical hernia containing fat. There are no dilated loops of bowel. The appendix is normal. Ther e are no pathologically enlarged lymph nodes. There is no free intraperitoneal fluid. There is a diss ecting aneurysm of superior mesenteric artery with maximum diameter of 13 mm, new from 10/25/20. There is mild lumbar spondylosis. IMPRESSION: 1. Dissecting aneurysm of superior mesenteric artery. 2. Umbilical hernia containing fat. Reviewed, dictated and finalized at location A. WORKER
[2024-07-27 13:33] LABS: Basophils Percent Auto 0.4 % (0.2-1.2); Eosinophils Percent Auto 0.3 % (0-4.4); Hemoglobin 16.4 g/dL (14.0-18.0); Immature Granulocyte Absolute 0.03 K/mm3 (0.00-0.031); Immature Granulocyte Percent A 0.4 % (0-0.5); Lymphocytes Absolute Auto 1.12 K/mm3 (0.9-3.2); Lymphocytes Percent Auto 15.2 % (18.3-44.2); Mean Corpuscular HGB Conc 33.5 g/dl (32-36); Mean Corpuscular Hemoglobin 30.5 pg (26-34); Mean Corpuscular Volume 91.2 fl (80-100); Mean Platelet Volume 9.7 fl (7.4-10.4); Monocytes Absolute Auto 0.5 K/mm3 (0.1-0.6); Monocytes Percent Auto 7.3 % (2.6-8.5); Neutrophils Absolute Auto 5.6 K/mm3 (1.3-6.7); Neutrophils Percent Auto 76.4 % (45.5-73.1); Platelet Count Result 200 k/mm3 (150-375); Red Blood Count 5.37 M/mm3 (4.6-6.20); Red Cell Distribution Width 13.8 % (11.5-14.5); White Blood Count 7.4 K/mm3 (4.5-10.0)
[2024-07-27 13:35] LABS: Add Urine Microscopic? NO; Appearance Urine Clear (Clear); Bilirubin Urine Negative (Negative); Blood Urine Negative (Negative); Color Urine Yellow (Yellow); Glucose Urine UA Negative (Negative); Ketones Urine Negative (Negative); Leukocyte Esterase Ur Negative LEU/UL (Negative); Nitrate Urine Negative (Negative); Protein Urine Negative (Negative); Specific Grav Ur 1.011 (1.001-1.035); Urobilinogen Urine 0.2 mg/dL (<2.0); pH Urine 5.5 (5.0-9.0)
[2024-07-27 13:46] LABS: Alanine Aminotransferase 17 U/L (6-50); Albumin Level 4.6 g/dL (3.5-5.1); Alkaline Phosphatase 60 U/L (38-126); Anion Gap 6 mmol/L (4-12); Aspartate Amino Transferase 28 U/L (17-59); Bilirubin,Total 1.1 mg/dL (0.2-1.3); Blood Urea Nitrogen 14 mg/dL (9-20); Calcium 9.5 mg/dL (8.4-10.2); Carbon Dioxide 31 mmol/L (22-30); Chloride 99 mmol/L (98-107); Estimated CRCL calculation 75 ml/min; Estimated Glomerular Filt Rate > 60; Glucose 96 mg/dL (65-110); Lipase 72 U/L (23-300); Potassium 4.2 mmol/L (3.4-5.0); Sodium 136 mmol/L (137-145)
--- NOTE | 2024-07-27 13:48 | ED_ITS ---
HPI - Abdominal Pain General Chief Complaint: Abdominal Pain Stated Complaint: back pain, bloating Time Seen by Provider: 07/27/24 13:18 History of Present Illness HPI narrative: 59-year-old male with a history of migraines, hairy cell leukemia, hypertension presenting with abdominal pain. States that starting last night he developed lower abdominal pain, flank pain, bloating. States that he had a very small bowel movement in the middle of the night which did not really seem to help. No diarrhea, hematochezia, melena. No nausea or vomiting. No dysuria or hematuria. Related Data Home Medications Medication Instructions Recorded Confirmed multivitamin (Multiple Vitamins 1 tablet PO DAILY 08/22/19 07/16/24 tablet) Allergies Allergy/AdvReac Type Severity Reaction Status Date / Time prochlorperazine AdvReac Other Verified 07/16/24 08:39 [From Compazine] Review of Systems Review of Systems: All systems reviewed & are unremarkable except as noted in HPI and below PMFSH Past Medical History Medical History Cubital tunnel syndrome on left Hairy cell leukemia History of leukemia Medial epicondylitis, left elbow Nevus of scalp Surgical History Surgical History S/P prostatectomy Family History Family History Father Malignant neoplasm of prostate Family history of malignant neoplasm of brain Social History Social History Social History: Smoking status: Never smoker Second hand tobacco smoke exposure: No Alcohol intake: never Substance use: never Substance use type: does not use Living arrangements: with family Occupation/Education: occupation Gender identity (if verbalized by the patient): Male Sexual Orientation (if Verbalized by the Patient): Straight or Heterosexual Exam Narrative: GENERAL: Well-appearing, in no acute distress, pleasant cooperative HEAD: Normocephalic, atraumatic. EYES: PERRLA and EOMI. ENT: Nares clear, no rhinorrhea or epistaxis. Mucous membranes moist. NECK: Supple. CHEST: No respiratory distress. HEART: Regular rate and rhythm ABDOMEN: Soft, mild tenderness lower abdomen, no guarding or rebound EXTREMITIES: Normal range of motion SKIN: Warm, dry, no rash. NEURO: No focal deficits. Alert and oriented x3. PSYCH: Normal mood and affect. Course Vital Signs Vital signs: Vital Signs Temperature 97.7 F 07/27/24 13:03 Pulse Rate 73 07/27/24 13:03 Respiratory Rate 18 07/27/24 13:03 Blood Pressure 132/81 07/27/24 13:03 Pulse Oximetry 98 07/27/24 13:03 Oxygen Delivery Room Air 07/27/24 13:03 Temperature 97.7 F 07/27/24 13:03 Pulse Rate 65 07/27/24 22:01 Respiratory Rate 14 07/27/24 22:01 Blood Pressure 117/72 07/27/24 22:01 Pulse Oximetry 99 07/27/24 22:01 Oxygen Delivery Room Air 07/27/24 13:03 MDM - Abdominal Pain MDM Narrative Medical decision making narrative: 59-year-old male presenting with abdominal pain. Vitals within normal limits. Exam remarkable for the above. Blood work without acute abnormalities. UA is unremarkable. 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 Coags and lactic acid added on, these are within normal limits. Spoke with vascular surgery of [facility], Dr. Vigil, who recommends obtaining a CT angiography to confirm the presence of the dissection. CTA shows replaced common hepatic artery arising from the SMA with additional short segments findings more distally in the SMA suggesting vasculitis. No discrete dissection is appreciated. Discussed the findings with vascular surgery again who feels discharge with outpatient management is appropriate. Recommend following up with primary care and possibly a salesperson men's furnishings regarding the mild vasculitis. Discussed these findings with the patient and he is agreeable with this plan. Strict return precautions given. Discharged in stable condition. Lab Data 07/27/24 13:24 07/27/24 13:24 Labs: Lab Results 07/27/24 07/27/24 07/27/24 Range/Units 13:23 13:24 15:52 WBC 7.4 (4.5-10.0) K/mm3 RBC 5.37 (4.6-6.20) M/mm3 Hgb 16.4 (14.0-18.0) g/dL Hct 49.0 (42.0-52.0) % MCV 91.2 (80-100) fl MCH 30.5 (26-34) pg MCHC 33.5 (32-36) g/dl RDW 13.8 (11.5-14.5) % Plt Count 200 (150-375) k/mm3 MPV 9.7 (7.4-10.4) fl Immature Gran % (Auto) 0.4 (0-0.5) % Neut % (Auto) 76.4 H (45.5-73.1) % Lymph % (Auto) 15.2 L (18.3-44.2) % [place] % (Auto) 7.3 (2.6-8.5) % Eos % (Auto) 0.3 (0-4.4) % Baso % (Auto) 0.4 (0.2-1.2) % Lymph # (Auto) 1.12 (0.9-3.2) K/mm3 [place] # (Auto) 0.5 (0.1-0.6) K/mm3 Eos # (Auto) 0.0 (0-0.3) K/mm3 Baso # (Auto) 0.0 (0.0-0.1) K/mm3 Abs Immat Gran (auto) 0.03 (0.00-0.031) K/mm3 Absolute Neuts (auto) 5.6 (1.3-6.7) K/mm3 Absolute Nucleated RBC 0.000 (0.0-0.012) K/mm3 Nucleated RBC % 0.0 (0.0-0.2) % PT 12.7 (11.1-14.7) Seconds INR 0.9 APTT 26.9 (22.3-36.8) Seconds Sodium 136 L (137-145) mmol/L Potassium 4.2 (3.4-5.0) mmol/L Chloride 99 (98-107) mmol/L Carbon Dioxide 31 H (22-30) mmol/L Anion Gap 6 (4-12) mmol/L BUN 14 (9-20) mg/dL Creatinine 1.00 (0.7-1.3) mg/dL Estim Creat Clear Calc 75 ml/min Estimated GFR > 60 (59 - ) Glucose 96 (65-110) mg/dL Lactic Acid 0.8 (0.7-2.0) mmol/L Calcium 9.5 (8.4-10.2) mg/dL Total Bilirubin 1.1 (0.2-1.3) mg/dL AST 28 (17-59) U/L ALT 17 (6-50) U/L Alkaline Phosphatase 60 (38-126) U/L Total Protein 8.0 (6.3-8.2) g/dL Albumin 4.6 (3.5-5.1) g/dL Lipase 72 (23-300) U/L Urine Color Yellow (Yellow) Urine Appearance Clear (Clear) Urine pH 5.5 (5.0-9.0) Ur Specific [place] 1.011 (1.001-1.035) Urine Protein Negative (Negative) mg/dL Urine Glucose (UA) Negative (Negative) mg/dL Urine Ketones Negative (Negative) mg/dL Ur Blood (Man) Negative (Negative) Urine Nitrate Negative (Negative) Urine Bilirubin Negative (Negative) Urine Urobilinogen 0.2 (<2.0) mg/dL Leukocyte Esterase Rfl Negative (Negative) PA/UL Imaging Data Radiologist's impression: ITS Impressions Abdomen/Pelvis CT 07/27/24 15:36 IMPRESSION: 1. Dissecting aneurysm of superior mesenteric artery. 2. Umbilical hernia containing fat. 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 No discrete dissection is appreciated. Vascular surgery follow-up is suggested, if the patient is clinically able. These findings were discussed with Dr. Browning at the time of examination and subsequent interpretation Critical Care Time Critical Care Time Critical Care Time: No Discharge Plan Discharge Clinical Impression: Abdominal pain, Vasculitis Patient Disposition: Home, Self-Care Instructions: Antibiotic Form, Abdominal Pain (ED) Additional Instructions: Your blood work today is normal. The CT scans show inflammation involving your superior mesenteric artery. We have spoken with vascular surgery who advises close follow-up with your primary care provider and rheumatology. Please use Tylenol for pain control. If your symptoms worsen or other concerning symptoms arise, please return to the ER. Prescriptions: No Action posaconazole 100 mg tablet,delayed release (DR/EC) 300 mg PO DAILY Qty: 1 0RF valacyclovir 1 gram tablet 1,000 mg PO Q8H Qty: 1 0RF rosuvastatin [Crestor] 5 mg tablet 5 mg PO DAILY Qty: 30 2RF zvhoprtbxp-xyqomrlsioqjw-afyv 50-325-40 mg capsule 1 cap PO Q6H PRN (Reason: pain) Qty: 60 0RF rizatriptan [Maxalt-[employer]OM[employer] PROFESSOR] 10 mg tablet,disintegrating 10 mg PO ONCE PRN (Reason: migraine headache) Qty: 12 10RF tadalafil [Cialis] 2.5 mg tablet 2.5 mg PO DAILY Qty: 30 5RF multivitamin [Multiple Vitamins] Tablet 1 tablet PO DAILY tadalafil [Cialis] 5 mg tablet 2.5 mg PO DAILY Qty: 30 5RF omeprazole 20 mg capsule,delayed release(DR/EC) See Rx Instructions .ROUTE .COMPLEX Qty: 180 1RF Dose Instruction: TAKE 2 CAPSULES BY MOUTH DAILY BEFORE A MEAL Rx Instructions: TAKE 2 CAPSULES BY MOUTH DAILY BEFORE A MEAL Follow-up/Referrals: Adarsh Rivera MD [Primary Care Provider] -
[2024-07-27 16:10] LABS: Lactic Acid Reflex 0.8 mmol/L (0.7-2.0)
[2024-07-27 16:18] LABS: INR 0.9; Partial Thromboplastin Time 26.9 Seconds (22.3-36.8); Prothrombin Time 12.7 Seconds (11.1-14.7)
[2024-07-27] MEDS: SODIUM CHLORIDE 0.9% IV 1,000 ML 999 ML IV CONT ×2 (18:58→20:22)
[2024-07-27] MEDS: MORPHINE SULFATE (*CRX) 2 MG/ML INJ IV PUSH (18:58)
== END 2024-07-27 23:16 | disposition home or self-care (01) ==
PROVIDERS: Physician Assistant; Emergency Provider Emergency Medicine; PCP Family Medicine
DX: I77.6 Arteritis, unspecified (principal); I10 Essential (primary) hypertension; Z85.6 Personal history of leukemia; Z90.79 Acquired absence of other genital organ(s); K42.9 Umbilical hernia without obstruction or gangrene; I72.8 Aneurysm of other specified arteries
CPT/HCPCS: 36415; 74174; 74177; 80053; 81003; 83605; 83690; 85025; 85610; 85730; 96361; 96374; 99284; J2270; J7030; Q9967

== ENCOUNTER 2024-07-31 15:37 | Outpatient (CLI) | payer OTHER, SELFPAY ==
[2024-07-31 16:30] LABS: Cholesterol 258 mg/dL (0-200); HDL Direct 90 mg/dL; Triglycerides 70 mg/dL (<150)
[2024-07-31 16:32] LABS: Add Urine Microscopic? NO; Appearance Urine Clear (Clear); Bilirubin Urine Negative (Negative); Blood Urine Negative (Negative); Color Urine Yellow (Yellow); Glucose Urine UA Negative (Negative); Ketones Urine 1+ mg/dL (Negative); Leukocyte Esterase Ur Negative LEU/UL (Negative); Nitrate Urine Negative (Negative); Protein Urine Negative (Negative); Specific Grav Ur 1.005 (1.001-1.035); Urobilinogen Urine 0.2 mg/dL (<2.0); pH Urine 5.5 (5.0-9.0)
[2024-07-31 16:33] LABS: CRP < 0.5 mg/dL (<1.0)
[2024-07-31 16:38] LABS: Complement C3 114 mg/dL (88-165); Rheumatoid Factor < 12.0 IU/ML (<12)
[2024-07-31 16:40] LABS: LDL Cholesterol Direct 116 mg/dL
[2024-07-31 16:49] LABS: Erythrocyte Sedimentation Rate 5 mm/hr (0-20)
[2024-07-31 17:03] LABS: Prostate Specific Antigen < 0.1 ng/mL (< OR = 4.0)
[2024-07-31 17:30] LABS: Hepatitis B Surface Antigen Negative (Negative)
[2024-07-31 17:38] LABS: HAV RESULT Negative (Negative); Hepatitis B Core IgM Result Negative (Negative)
[2024-07-31 17:48] LABS: Hepatitis C Virus Antibody Negative (Negative)
[2024-08-01 14:24] LABS: ANA Cascade Screen NEGATIVE (NEGATIVE)
[2024-08-02 14:48] LABS: Anti Glomerular Basement Memb <1.0 AI
[2024-08-02 15:44] LABS: Myeloperoxidase Ab <1.0 AI; Myeloperoxidase Antibody <1.0 AI
== END 2024-07-31 15:38 | disposition home or self-care (01) ==
LOC: ANHLAB 15:39
PROVIDERS: PCP Family Medicine; Referring Provider Family Medicine; Visit Provider Physician Assistant Medical
DX: Z00.00 Encounter for general adult medical examination without abnormal findings (principal); I77.6 Arteritis, unspecified; E78.2 Mixed hyperlipidemia; Z85.46 Personal history of malignant neoplasm of prostate
CPT/HCPCS: 36415; 80061; 80074; 81003; 82595; 83520; 84153; 84443; 85652; 86036; 86038; 86140; 86160; 86225; 86235; 86364; 86430

== ENCOUNTER 2024-11-13 15:58 | Outpatient (CLI) | payer OTHER, SELFPAY ==
[2024-11-13 17:04] LABS: Add Urine Microscopic? NO; Appearance Urine Clear (Clear); Bilirubin Urine Negative (Negative); Blood Urine Negative (Negative); Color Urine Yellow (Yellow); Glucose Urine UA Negative (Negative); Ketones Urine Trace mg/dL (Negative); Leukocyte Esterase Ur Negative LEU/UL (Negative); Nitrate Urine Negative (Negative); Protein Urine Negative (Negative); Specific Grav Ur 1.006 (1.001-1.035); Urobilinogen Urine 0.2 mg/dL (<2.0)
== END 2024-11-13 15:59 | disposition home or self-care (01) ==
LOC: ANHLAB 15:59
PROVIDERS: PCP Family Medicine; Visit Provider Student in an Organized Health Care Education/Training Program
DX: R30.0 Dysuria (principal)
CPT/HCPCS: 81003

== ENCOUNTER 2025-04-15 14:26 | Outpatient (CLI) | payer OTHER, SELFPAY ==
--- OUTSIDE RECORDS SUMMARY | 2025-04-15 14:45 | XMS_ITS | Clinical Summary ---
Author Organization [facility] Address [address] [place] [address] Care Team Providers Care Marketing Operations Coordinator Name Role Phone Adarsh Rivera MD Primary Care Provider Wili Knutson MD Unavailable [phone] Allergies Active Allergy Reactions Criticality Noted Date Comments Prochlorperazine Other (See comments) Medium 0 Tightness, tingling, and twitching on right side of the mouth Medications butalbital-acetamin ophen-caffeine (ESGIC) 50-325-40 mg per tabletIndications:P ancytopenia 1 tablet as needed for migraine (2nd line after rizatriptan) Active omeprazole (PriLOSEC) 20 mg capsuleIndications: Pancytopenia daily Active rizatriptan CORE BLOWER OPERATOR (MAXALT-CORE BLOWER OPERATOR) 10 mg disintegrating tablet as needed 1 Active rosuvastatin (CRESTOR) 5 mg tablet Take 1 tablet (5 mg total) by mouth daily 3 Active tadalafiL (CIALIS) 5 mg tablet Take 0.5 tablets (2.5 mg total) by mouth daily 4 Active Active Problems Patient Care Coordination No te Formatting of this note is d ifferent from the original. BMT Inpatient Care Coordination Overview Diagnosis Hairy Cell Treatment Plan BMT/IEC/DCI Plan Clinical Trial Inpatient Floor 9800 Reason for Admission cellulitis Transplant/IEC Planning Patient Education Completed Consents Done IDMs Insurance Approvals/Issues Discharge Planning Anticipated Discharge Date Issue to be Resolved Before Discharge Living Situation/Distance from [facility] Discharge To [place], [place] 30 minutes Caregiver Peyman Echavarria) Requests sent to Case Management and/or Medical Assistants Post-Discharge Followup/Local Care PW Televisit Consent Miscellaneous Notes: 08/12 Derm path bx done & pending, abx for cellulitis Problem Noted Date Diagnosed Date Hx of colonic polyps 02/23/2024 Colon cancer screening 02/23/2024 CKD (chronic kidney disease) stage 2, GFR 60-89 ml/min 01/27/2023 Rectal spasm 11/17/2020 Overview (11/17/2020): Added automatically from request for surgery [id number] Rectal pain 11/17/2020 Overview (11/27/2020): Added automatically from request for surgery [id number] History of esophageal stricture 10/01/2020 Overview (10/01/2020): Added automatically from request for surgery [id number] Nausea 09/01/2020 Cellulitis 08/22/2020 Assessment & Plan (08/22/2020 2:08 PM CALENDER OPERATOR): 55 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 He has received a non-diagnostic biopsy.Treatment durations were all fairly short. But it appears that he has not really responded to cephalexin, amoxicillin- clavulanate, and clindamycin. He may have had some improvement with daptomycin. Most cases of cellulitis are staph or strep. However, his lack of response to several antibiotics with good activity against both make these organisms less likely. His possible clinical response to daptomycin and lack of response to other antibiotics may be consistent with a coagulase negative staph infection. We will try linezolid, which should have good activity against almost all coagulase negative staph and corynebacterium infections. I will also order an MRI of his left leg, given proximity to bone and substantial induration. If he does not respond to therapy and his MRI is normal, then non-infectious etiologies should be considered and additional biopsies may be warranted. Severe malnutrition 08/11/2020 Neutropenic fever 07/15/2020 Assessment & Plan (07/15/2020 8:51 PM CALENDER OPERATOR): Presented with one day of fever up to 101.5 at home, T 100.0 on arrival, Tachycardic to 122. No sick contacts. ANC 0.1. - cefepime started - RVP, blood cultures, UA pending - CXR - IVF Elevated LFTs 07/15/2020 Assessment & Plan (07/15/2020 8:51 PM CALENDER OPERATOR): AST/ALT/Alk phos all in 200's noted on labs 07/14. Was taken off fluconazole as a result, T bili 1.0 at that time. 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 - continue home prophylaxis w/voriconazole - continue allopurinol - Monitor Uric acid/bili/LDH - holding cipro/bactrim prophylaxis - follows with Dr. Augustine Pancytopenia 06/23/2020 Assessment & Plan (07/15/2020 8:49 PM CALENDER OPERATOR): Due to chemotherapy - continue to monitor - holding DVT PPX Prostate cancer 04/28/2012 Assessment & Plan (07/15/2020 8:53 PM CALENDER OPERATOR): localized s/p prostatectomy without RT in 2012 Encounters Date Type Department Care Team Description 02/22/2025 11:30 AM CDT Office Visit [facility] [address] [address] [address] [place] [address] Za Crane, INDRA Hairy cell leukemia, in remission (HCC) (Primary Dx) 02/19/2025 4:13 PM CDT - 02/19/2025 11:59 PM CDT Hospital Encounter [address] [place] [address] CKD (chronic kidney disease) stage 2, GFR 60-89 ml/min Discharge Disposition: Discharge to home or self care 02/19/2025 3:00 PM CDT Office Visit [facility] [address] [facility] 5th [place] [address] [place] [address] Blayne Alvarez MD CKD (chronic kidney disease) stage 2, GFR 60-89 ml/min (Primary Dx) 02/15/2025 4:15 PM CDT Lab [facility] [address] [place] [id number] Hairy cell leukemia, in remission (HCC) from Last 3 Months Immunizations Immunization Administration Dates Next Due Pfizer SARS-CoV-2 Monovalent Vaccination (12+ Yrs) PURPLE 05/02/2021 Surgical History Surgery Date Site/Laterality Comments FL VASECTOMY UNI/BI SPX W/POSTOP SEMEN EXAMS Surgery Vas Deferens Vasectomy - (Added by TW Conv) PROSTATECTOMY 09/12/2011 - 09/11/2012 Medical History Medical History Date Comments Personal history of other di seases of the digestive system History of constipation - (A dded by TW Conv) Personal history of other di seases of male genital organs History of prostatitis - (Ad ded by TW Conv) Elevated prostate specific a ntigen (PSA) Elevated prostate specific a ntigen (PSA) - PSA=3.0 in 2010; PSA=2.6 in 2008; PSA=1.5 in 2007 (Added by TW Conv) Personal history of other di seases of male genital organs History of epididymitis - (A dded by TW Conv) Family History Medical History Relation Name Comments Prostate cancer Brother Brain cancer Father Family history of brain cancer - (Added by TW Conv) Prostate cancer Father Prostate Can cer - PGF- age 70's; Father- of unrelated causes; MGF- age 94 (Added by TW Conv)/Family history of prostate cancer - (Added by TW Conv) Prostate cancer Maternal Grandfather Arthritis Mother Prostate cancer Other Prostate Can cer - PGF- age 70's; Father- of unrelated causes; MGF- age 94 Relation: Grandparent (Added by TW Conv) Prostate cancer Paternal Grandfather Relation Name Status Comments Brother Alive Father Maternal Grandfather Mother Alive Other Paternal Grandfather Social History Tobacco Use Types Packs/Day Years Used Date Smoking Tobacco: Never Smokeless Tobacco: Never Tobacco Cessation:Counseling Given: Not Answered AUDIT-C Answer Date Recorded Q1: How often do you have a drink containing alc ohol? Never 12/08/2020 Average Number of Drinks Not on file 021 Q3: How often do you have si x or more drinks on one occasion? Never 12/08/2020 PHQ-2 Answer Date Recorded PHQ-2 Total Score (If total score is 3 or more points, staff should administer the PHQ-9) 0 07/11/2020 Personal Safety Answer Date Recorded Have you ever been in or are you currently in a harmful physical or emotional relationship or is someone making you feel afraid or unsafe? Denies 04/27/2024 Sex and Gender Information Value Date Recorded Sex Assigned at Not on file Legal Sex Male 6:53 AM CALENDER OPERATOR Gender Identity Not on file Sexual Orientation Not on file Obstetrics History Last Filed Vital Signs Vital Sign Reading Time Taken Comments Blood Pressure 117/78 02/22/2025 11:30 AM CDT Pulse 67 02/22/2025 11:30 AM CDT Temperature 36.6 C (97.9 F) 02/22/2025 11:30 AM CDT Respiratory Rate 17 02/22/2025 11:30 AM CDT Oxygen Saturation 100% 02/22/2025 11:30 AM CDT Inhaled Oxygen Concentration - - Weight 87.3 kg (192 lb 6.4 oz) 02/22/2025 11:30 AM CDT Height 175 cm (5' 8.9) 02/22/2025 11:30 AM CDT Body Mass Index 28.5 02/22/2025 11:30 AM CDT Plan of Treatment Health Maintenance Due Date Last Done Comments Prostate Cancer Screening-PSA 1965 DTaP/Tdap/Td Vaccine (1 - Tdap) 1975 Hepatitis B Screening 1982 Regular Well Visit/Exam 18-64 1982 Pneumococcal vaccine <65 (1 of 2 - PCV) 1983 Covid-19 Vaccine (2 - Pfizer risk series) 05/23/2021 05/02/2021 Depression Screening 07/11/2021 07/11/2020, 07/11/20 20 Zoster Vaccine (2 of 2) 08/27/2021 07/02/2021 Influenza Vaccine (#1) 2025 Colon Cancer Screening-Colonoscopy 04/27/20342023, 12/08/2020 Hepatitis C Screening Completed 07/15/2020 Procedures Procedure Name Priority Date/Time Associated Diagnosis Comments URINALYSIS AND REFLEX TO MICROSCOPIC Routine 02/19/2025 4:13 PM CDT CKD (chronic kidney disease) stage 2, GFR 60-89 ml/min POCT URINALYSIS DIPSTICK Routine 02/19/2025 3:01 PM CDT CKD (chronic kidney disease) stage 2, GFR 60-89 ml/min EGFR Routine 02/15/2025 2:53 PM CDT Hairy cell leukemia, in remission (HCC) DIFFERENTIAL AUTO Routine 02/15/2025 2:5 3 PM CDT Hairy cell leukemia, in remission (HCC) CBC WITH AUTO DIFFERENTIAL Routine 02/15/2025 2:53 PM CDT Hairy cell leukemia, in remission (HCC) COMPREHENSIVE METABOLIC PANEL Routine 02/15/2025 2:53 PM CDT Hairy cell leukemia, in remission (HCC) LACTATE DEHYDROGENASE Routine 02/15/2025 2:53 PM CDT Hairy cell leukemia, in remission (HCC) COLONOSCOPY 04/27/2024 1:00 PM CDT HEPATITIS PANEL, ACUTE Routine 8:53 PM CALENDER OPERATOR from Last 3 Months or Most Recently Relevant to Health Maintenance Results * Urinalysis reflex to microscopic (02/19/2025 4:13 PM CDT) Color, ur Straw Yellow Clarity, ur Clear Clear [facility] Specific gravity, ur 1.005 1.003 - 1.030 [facility] pH, urine 6.0 [facility] Comment: Interpretive Data U rine pH is affected by diet, medications, systemic acid-base disturbances, and renal tubular function. pH may affect urinary stone formation. For example, urine pH below 6.0 may help reduce the tendency for calcium phosphate stones and pH greater than 6.0 may reduce the tendency for uric acid stone formation. Source: [facility] Current Interpretive Data was last revised on 2017 Protein, ur ql Negative Negative [facility] Glucose, ur ql Negative Negative [facility] Ketones, ur Negative Negative [facility] Bilirubin, ur Negative Negative [facility] Blood, ur Negative Negative [facility] Urobilinogen, ur <2.0 <2.0 mg/dL [facility] Nitrite, ur Negative Negative [facility] Leukocyte esterase, ur Negative Negative [facility] UA reflex comment Reflex conditions for microscopic UA not met. [facility] Urine 02/19/2025 4:13 PM CDT 02/19/2025 5:20 PM CDT us Blayne Alvarez MD LAB URINE ORDERABLES Fin al Result [facility] [place] [address] * POCT urinalysis dipstick (02/19/2025 3:01 PM CDT) Glucose, ur, POC Negative Negative Bilirubin, ur, POC Negative Negative Ketones, ur, POC Negative Negative Specific [place], POC Comment:<=1.005 Blood, ur, POC Negative Negative pH, ur, POC 5.5 5.0 - 8.0 Protein, ur, POC Negative Negative Urobilinogen, urine, POC 0.2 0.2 - 1.0 mg/dL Nitrite, ur, POC Negative Negative Leukocytes, ur, POC Negative Negative Lot Number [id number] Urine 02/19/2025 3:01 PM CDT Blayne Alvarez MD POINT OF CARE TEST ORDER JULIANNA Final Result * eGFR (02/15/2025 2:53 PM CDT) Pathologist [facility] eGFR 71 >=60 mL/min/1. 73 m2 Comment: Interpretive Data Reference Interval Normal >/= 90 mL/min/1.73m2 Mildly decreased* 60 - 89 mL/min/1.73m2 Mildly to moderately decreased 45 - 59 mL/min/1.73m2 Moderately to severely decreased 30 - 44 mL/min/1.73m2 Severely decreased 15 - 29 mL/min/1.73m2 Kidney Failure < 15 mL/min/1.73m2 *Relative to young adult level Estimated glomerular filtration rate is determined by the 2020 CKD-EPI equation recommended by the National Kidney Foundation (A Unifying Approach to GFR Estimation: Recommendations of the NKF-ASK Task Force on Reassessing the Inclusion of Race in Diagnosing Kidney Disease, JASN 2020). The CKD-EPI equation should not be used for patients with unstable renal function and has not been validated in children and those over 70. Current interpretive data was last reviewed 2021. Blood 02/15/2025 2:53 PM CDT 02/15/2025 3:09 PM CDT us Wili Knutson MD LAB BLOOD ORDERABLES Faye mendez Result [facility] [place] [address] * Differential, auto (02/15/2025 2:53 PM CDT) Pathologist [facility] Neutrophil abs 2.55 1.50 - 6.50 K/cumm Imm gran abs 0.02 0.00 - 0.10 K/cumm [facility] Lymphocyte abs 1.11 0.80 - 3.30 K/cumm [facility] Monocyte abs 0.33 0.20 - 0.80 K/cumm [facility] Eosinophil abs 0.07 0.00 - 0.50 K/cumm [facility] Basophil abs 0.04 0.00 - 0.10 K/cumm [facility] Neutrophil pct 61.9 % [facility] Comment: Interpretive Data Percent cell count reference ranges are not reported, since discordance with absolute values may lead to misinterpretation of CBC data. Current Interpretive Data was last revised on 2017. Imm gran pct 0.5 % [facility] Comment: Interpretive Data Percent cell count reference ranges are not reported, since discordance with absolute values may lead to misinterpretation of CBC data. Current Interpretive Data was last revised on 2017. Lymphocyte pct 26.9 % [facility] Comment: Interpretive Data Percent cell count reference ranges are not reported, since discordance with absolute values may lead to misinterpretation of CBC data. Current Interpretive Data was last revised on 2017. Monocyte pct 8.0 % [facility] Comment: Interpretive Data Percent cell count reference ranges are not reported, since discordance with absolute values may lead to misinterpretation of CBC data. Current Interpretive Data was last revised on 2017. Eosinophil pct 1.7 % [facility] Comment: Interpretive Data Percent cell count reference ranges are not reported, since discordance with absolute values may lead to misinterpretation of CBC data. Current Interpretive Data was last revised on 2017. Basophil pct 1.0 % [facility] Comment: Interpretive Data Percent cell count reference ranges are not reported, since discordance with absolute values may lead to misinterpretation of CBC data. Current Interpretive Data was last revised on 2017. Blood 02/15/2025 2:53 PM CDT 02/15/2025 3:10 PM CDT us Wili Knutson MD LAB BLOOD ORDERABLES Faye mendez Result [facility] Department of Laboratories [place], [place] [id number] * CBC with auto differential (02/15/2025 2:53 PM CDT) WBC 4.12 3.80 - 9.90 K/cumm Hgb 15.3 13.0 - 17.5 g/dL [facility] Hct 44.9 38.9 - 50.3 % [facility] Plt 182 150 - 400 K/cumm [facility] MPV 10.4 9.1 - 12.3 fL [facility] RBC 5.01 4.30 - 5.80 M/cumm [facility] MCV 89.6 81.3 - 96.4 fL [facility] MCH 30.5 27.1 - 33.3 pg [facility] MCHC 34.1 32.3 - 35.7 g/dL [facility] RDW CV 13.6 11.1 - 14.9 % [facility] RDW SD 44.9 35.7 - 48.1 fL [facility] NRBC abs 0.00 0.00 - 0.01 K/cumm [facility] Blood 02/15/2025 2:53 PM CDT 02/15/2025 3:10 PM CDT Wili Knutson MD LAB BLOOD ORDERABLES Faye l Result Performing Organization Address [facility]/ZIP Co de Phone Number [facility] [place] [address] * Lactate dehydrogenase (LD) (02/15/2025 2:53 PM CDT) [facility] Lactate dehydrogenase (LDH) 159 100 - 250 Units/L Blood 02/15/2025 2:53 PM CDT 02/15/2025 3:09 PM CDT Wili Knutson MD LAB BLOOD ORDERABLES Faye l Result [facility] [place] [address] * (ABNORMAL) Comprehensive metabolic panel (02/15/2025 2:53 PM CDT) [facility] Sodium 138 135 - 145 mmol/L Potassium, pl 4.2 3.3 - 4.9 mmol/L [facility] Chloride 102 97 - 110 mmol/L [facility] CO2 30 22 - 32 mmol/L [facility] Anion gap 6 2 - 15 mmol/L [facility] BUN 13 6 - 25 mg/dL [facility] Creatinine 1.18 0.80 - 1.30 mg/dL [facility] Glucose 87 70 - 199 mg/dL [facility] Comment: Interpretive Data Fasting glucose >/= 126 mg/dl is diagnostic for diabetes. Fasting is defined as no caloric intake for at least 8 hours. Fasting glucose between 100 mg/dl to 125 mg/dl is diagnostic of prediabetes. In a patient with classic symptoms of hyperglycemia or hyperglycemic crisis, a random glucose >/= 200 mg/dl is diagnostic for diabetes. In the absence of unequivocal hyperglycemia, results should be confirmed by repeat testing. The classification and Diagnosis of Diabetes Diabetes Care 202; 46: S19-S40. Current interpretive data was last revised 2022. Calcium 9.1 8.5 - 10.3 mg/dL [facility] Bilirubin, total 0.8 0.1 - 1.2 mg/dL [facility] Protein, pl 6.4(L) 6.5 - 8.5 g/dL [facility] Albumin 4.3 3.5 - 5.0 g/dL [facility] Alk phos 48 40 - 130 Units/L [facility] ALT 12 7 - 55 Units/L [facility] AST 20 10 - 50 Units/L [facility] Blood 02/15/2025 2:53 PM CDT 02/15/2025 3:09 PM CDT Wili Knutson MD LAB BLOOD ORDERABLES Faye mendez Result [facility] [place] [address] * Colonoscopy (04/27/2024 1:00 PM CDT) Anatomical Region Laterality Modality Other Narrative Procedure Note Dana Mott MD - 04/27/2024 1:00 PM CDT ENDOSCOPY LAB Patient Name: William Bowling Procedure Date: 04/27/2024 1:00 PM Date of : 1965 Admit Type: Outpatient Age: 58 Gender: Male Attending MD: Dana Mott M.D. Room: [facility] ENDOSCOPY ROOM 05 Note Status: Finalized Procedure: Colonoscopy Indications: High risk colon cancer surveillance: Personalhistory of colonic polyps, Last colonoscopy: November 2020 Providers: Dana Mott M.D. Referring MD: Adarsh Rivera M.D. Medicines: Monitored Anesthesia Care Complications: No immediate complications. Estimated Blood Loss: Estimated blood loss: none. Procedure: Pre-Anesthesia Assessment: - ASA Grade Assessment: II - A patient with mild systemic disease. The benefits, risks and alternatives of theprocedure and sedation were discussed and informed consentwas obtained. All questions were answered. Please referto the signed informed consent document in the medical record. The scope was passed under direct vision.The [id number] was introduced through the anusand advanced to the terminal ileum, with identificationof the appendiceal orifice and IC valve. Thecolonoscopy was performed without difficulty. The patient tolerated the procedure well. The quality of thebowel preparation was good. Bowel prep was administered using a split dose. Findings: The perianal and digital rectal examinations were normal. Two sessile polyps were found in the sigmoid colon. The polyps were small in size. These polyps were removed with a cold snare. Resection and retrieval were complete. The exam was otherwise without abnormality on direct and retroflexion views. Impression: - Two small polyps in the sigmoid colon, removedwith a cold snare. Resected and retrieved. - The examination was otherwise normal on directand retroflexion views. Recommendation: - Patient has a contact number available for emergencies. The signs and symptoms of potential delayed complications were discussed with thepatient. Return to normal activities tomorrow. Written discharge instructions were provided to thepatient. - Resume previous diet. - Continue present medications. - Await pathology results. - Repeat colonoscopy in 5 years for surveillancebased on pathology results. - - In case of questions or concerns regarding your procedure uring normal business hours, please callthe Nurse Coordinator: [phone] - After hours, evening, nights, weekends andholidays, please call the hospital small equipment operator at and ask for the GI fellow health and nutrition specialist. Electronically signed by Dana Mott MD Dana oMtt M.D. 04/27/2024 1:17:27 PM Number of Addenda: 0 Note Initiated On: 04/27/2024 1:00 PM us Dana Mott MD ENDOSCOPY PROCEDURES Final Res ult * Hepatitis panel, acute (07/15/2020 8:53 PM CALENDER OPERATOR) Hep A IgM Nonreactive Nonreactive [facility] Comment: Interpretive Data: If Hep A IgM Ab is reported as Equivocal, a new sample should be drawn in two weeks for testing. Current interpretive data was last revised on 19. Hep B core IgM Nonreactive Nonreactive [facility] Comment: Interpretive Data If HepB Core IgM Ab is reported as Equivocal, a new sample should be drawn in two weeks for testing. Current interpretive data was last revised on 19. Hep C Ab Nonreactive Nonreactive [facility] Comment:Antibodies to HCV no t detected. Does NOT exclude the possibility of recent exposure to HCV. HepBsAg Nonreactive Nonreactive [facility] Blood specimen (specimen) 07/15/2020 8:53 PM CALENDER OPERATOR 07/15/2020 9:08 PM CALENDER OPERATOR Murray Borrego MD LAB MICROBIOLOGY - GENERAL ORDERABLES Edited Result - Final [facility] [place] [address] from Last 3 Months or Most Recently Relevant to Health Maintenance Insurance [facility] Advance Directives For more information, please contact: [phone] * Full Code (Latest Code Status on File) Date Activated Date Inactivated Comments 04/27/2024 11:55 AM 04/27/2024 5:59 PM * Full Code Date Activated Date Inactivated Comments 12/08/2020 1:07 PM 12/08/2020 7:58 PM * Full Code Date Activated Date Inactivated Comments 10/09/2020 9:40 AM 10/09/2020 3:42 PM * Full Code Date Activated Date Inactivated Comments 08/09/2020 11:16 AM 08/14/2020 7:52 PM * Full Code Date Activated Date Inactivated Comments 07/15/2020 8:08 PM 07/19/2020 5:13 PM Care Teams Marketing Operations Coordinator Relationship Specialty Start Date End Date Adarsh Rivera MD [address] [facility] [address] [place] [address] PCP - General 04/19/17 Wili Knutson MD [address] DIV IM [employer]ONE [employer]ARROW [employer] [place] [address] Medical Oncologist/Dental Secretary Medical Oncology 08/12/23
--- OUTSIDE RECORDS SUMMARY | 2025-04-15 14:45 | XMS_ITS | Encounter Summary ---
Author Organization [facility] Address [address] [place] [address] Phone Care Team Providers Care Solutions Architect Name Role Phone Adarsh Rivera MD Primary Care Provider Oswaldo Augustine MD PhD Unavailable [phone] Wili Knutson MD Unavailable [phone] Reason for Visit * Reason Onset Date Comments SCHEDULE UPDATE 09/01/2020 Encounter Details Date Type Department Care Team (Late st Contact Info) Description 09/01/2020 Telephone [facility] Oncology [address] [facility] [address] [place] [address] Luiza Godoy, [facility] SCHEDULE UPDATE Social History Tobacco Use Types Packs/Day Years Used Date Smoking Tobacco: Never Smokeless Tobacco: Never PHQ-2 Answer Date Recorded PHQ-2 Total Score (If total score is 3 or more points, staff should administer the PHQ-9) 0 07/11/2020 Sex and Gender Information Value Date Recorded Sex Assigned at Not on file Legal Sex Male 6:53 AM COUPLES THERAPIST Gender Identity Not on file Sexual Orientation Not on file documented as of this encounter Plan of Treatment Not on file documented as of this encounter Visit Diagnoses Not on filedocumented in this encounter Care Teams Solutions Architect Relationship Specialty Start Date End Date Adarsh Rivera MD [address] [facility] [address] [place] [address] PCP - General 04/19/17 Oswaldo Augustine MD PhD [address] [place] [address] Consulting Physician Medical Oncology 06/23/20 3 Wili Knutson MD [address] IM BONE MARROW TRANSPLANT[address] [place] [address] Medical Oncologist/Court Interpreter Medical Oncology 08/12/23 documented as of this encounter
--- OUTSIDE RECORDS SUMMARY | 2025-04-15 14:45 | XMS_ITS | Encounter Summary ---
Author Organization [facility] Address [address] [place] [address] Phone Care Team Providers Care Staining Machine Operator Name Role Phone Adarsh Rivera MD Primary Care Provider Oswaldo Augustine MD PhD Unavailable [phone] Wili Knutson MD Unavailable [phone] Encounter Details Date Type Department Care Team (Late st Contact Info) Description 04/02/2022 Telephone [facility] Oncology [address] [facility] [address] [place] [address] Yen Hall, B.A. 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 Gender Identity Not on file Sexual Orientation Not on file documented as of this encounter Plan of Treatment Not on file documented as of this encounter Visit Diagnoses Not on filedocumented in this encounter Care Teams Staining Machine Operator Relationship Specialty Start Date End Date Adarsh Rivera MD [address] [facility] [address] [place] [address] PCP - General 04/19/17 Oswaldo Augustine MD PhD [address] [facility] [address] [place] [address] Consulting Physician Medical Oncology 06/23/20 3 Wili Knutson MD [address] IM BONE MARROW TRANSPLANT[address] [place] [address] Medical Oncologist/Pharmacists Medical Oncology 08/12/23 documented as of this encounter
--- OUTSIDE RECORDS SUMMARY | 2025-04-15 14:45 | XMS_ITS | Referral Summary ---
Author Organization [facility] Address [address] [place] [address] Care Team Providers Care Early Learning Teacher Name Role Phone Adarsh Rivera MD Primary Care Provider Wili Knutson MD Unavailable [phone] Encounters Date Type Department Care Team Description 02/22/2025 11:30 AM CDT Office Visit [facility] Bone Marrow Transplant [address] [facility] [address] [place] [phone] Za Crane NP Hairy cell leukemia, in remission (HCC) (Primary Dx) 02/19/2025 4:13 PM CDT - 02/19/2025 11:59 PM CDT Hospital Encounter [facility] [address] [place] [address] CKD (chronic kidney disease) stage 2, GFR 60-89 ml/min Discharge Disposition: Discharge to home or self care 02/19/2025 3:00 PM CDT Office Visit [facility] Nephrology [address] [place] [address] Advanced Medicine 5th [place] [address] [place] [address] Blayne Alvarez MD CKD (chronic kidney disease) stage 2, GFR 60-89 ml/min (Primary Dx) 02/15/2025 4:15 PM CDT Lab [facility] Advanced [facility] [address] [place] [address] Hairy cell leukemia, in remission (HCC) from Last 3 Months Allergies Active Allergy Reactions Criticality Noted Date Comments Prochlorperazine Other (See comments) Medium 0 Tightness, tingling, and twitching on right side of the mouth Medications butalbital-acetamin ophen-caffeine (ESGIC) 50-325-40 mg per tabletIndications:P ancytopenia 1 tablet as needed for migraine (2nd line after rizatriptan) Active omeprazole (PriLOSEC) 20 mg capsuleIndications: Pancytopenia daily Active rizatriptan TOE FORMER (MAXALT-TOE FORMER) 10 mg disintegrating tablet as needed 1 [...] Transplant/IEC Planning Patient Education Completed Consents Done IDMo Insurance Approvals/Issues Discharge Planning Anticipated Discharge Date Issue to be Resolved Before Discharge Living Situation/Distance from [facility] Discharge To [place], [place] 30 minutes Caregiver Peyman Echavarria) Requests [...] (11/17/2020): Added automatically from request for surgery [id number] Rectal pain 11/17/2020 Overview (11/27/2020): Added automatically from request for surgery [id number] History of esophageal stricture 10/01/2020 Overview (10/01/2020): Added automatically from request for surgery [id number] Nausea 09/01/2020 Cellulitis 08/22/2020 Assessment & Plan (08/22/2020 2:08 PM CHORAL TEACHER): 55 yo male with hairy cell leukemia [...] 07/15/2020 Assessment & Plan (07/15/2020 8:51 PM CHORAL TEACHER): Presented with one day of fever up to 101.5 at home, T 100.0 on arrival, Tachycardic to 122. No sick contacts. ANC 0.1. - cefepime started - RVP, blood cultures, UA pending - CXR - IVF Elevated LFTs 07/15/2020 Assessment & Plan (07/15/2020 8:51 PM CHORAL TEACHER): AST/ALT/Alk phos all in 200's noted on labs 07/14. Was taken off fluconazole as a result, T bili 1.0 at that time. 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 - continue home prophylaxis w/voriconazole - continue allopurinol - Monitor Uric acid/bili/LDH - holding cipro/bactrim prophylaxis - follows with Dr. Augustine Pancytopenia 06/23/2020 Assessment & Plan (07/15/2020 8:49 PM CHORAL TEACHER): Due to chemotherapy - continue to monitor - holding DVT PPX Prostate cancer 04/28/2012 Assessment & Plan (07/15/2020 8:53 PM CHORAL TEACHER): localized s/p prostatectomy without RT in 2011 Immunizations Immunization Administration Dates Next Due Pfizer SARS-CoV-2 Monovalent Vaccination (12+ Yrs) PURPLE 05/02/2021 Social History Tobacco Use Types Packs/Day Years [...] on file Legal Sex Male 6:53 AM CHORAL TEACHER Gender Identity Not on file Sexual Orientation Not on file Last Filed Vital Signs Vital Sign Reading [...] 02/22/2025 11:30 AM CDT Plan of Treatment Not on file Procedures Procedure Name Priority Date/Time Associated Diagnosis [...] CDT HEPATITIS PANEL, ACUTE Routine 8:53 PM CHORAL TEACHER from Last 3 Months or Most Recently Relevant to Health Maintenance Results * Urinalysis reflex to microscopic (02/19/2025 4:13 PM CDT) Color, ur Straw Yellow Clarity, ur Clear Clear [facility] Specific gravity, ur 1.005 1.003 - 1.030 [facility] pH, urine 6.0 [facility] Comment: Interpretive Data U rine pH is affected by diet, medications, systemic acid-base disturbances, and renal tubular function. pH may affect urinary stone formation. For example, urine pH below 6.0 may help reduce the tendency for calcium phosphate stones and pH greater than 6.0 may reduce the tendency for uric acid stone formation. Source: [facility] Current Interpretive Data was last revised on 2017 Protein, ur ql Negative Negative [facility] Glucose, ur ql Negative Negative [facility] Ketones, ur Negative Negative [facility] Bilirubin, ur Negative Negative [facility] Blood, ur Negative Negative [facility] Urobilinogen, ur <2.0 <2.0 mg/dL [facility] Nitrite, ur Negative Negative [facility] Leukocyte esterase, ur Negative Negative [facility] UA reflex comment Reflex conditions for microscopic UA not met. [facility] Urine 02/19/2025 4:13 PM CDT 02/19/2025 5:20 PM CDT us Blayne Alvarez MD LAB URINE ORDERABLES Fin al Result [facility] Department [place] [address] * POCT urinalysis dipstick (02/19/2025 3:01 PM CDT) Glucose, ur, POC Negative Negative Bilirubin, ur, POC Negative Negative Ketones, ur, POC Negative Negative Specific [place], POC Comment:<=1.005 Blood, ur, POC Negative Negative pH, ur, POC 5.5 5.0 - 8.0 Protein, ur, POC Negative Negative Urobilinogen, urine, POC 0.2 0.2 - 1.0 mg/dL Nitrite, ur, POC Negative Negative Leukocytes, ur, POC Negative Negative Lot Number [id number] Urine 02/19/2025 3:01 PM CDT Blayne Alvarez MD POINT OF CARE TEST ORDER JULIANNA Final Result * eGFR (02/15/2025 2:53 PM CDT) Pathologist [facility] eGFR 71 >=60 mL/min/1. 73 m2 Comment: [...] MD LAB BLOOD ORDERABLES Faye mendez Result [facility] Department [place] [address] * Differential, auto (02/15/2025 2:53 PM CDT) Pathologist [facility] Neutrophil abs 2.55 1.50 - 6.50 K/cumm Imm gran abs 0.02 0.00 - 0.10 K/cumm [facility] Lymphocyte abs 1.11 0.80 - 3.30 K/cumm [facility] Monocyte abs 0.33 0.20 - 0.80 K/cumm [facility] Eosinophil abs 0.07 0.00 - 0.50 K/cumm [facility] Basophil abs 0.04 0.00 - 0.10 K/cumm [facility] Neutrophil pct 61.9 % [facility] Comment: Interpretive Data Percent cell count reference ranges are not reported, since discordance with absolute values may lead to misinterpretation of CBC data. Current Interpretive Data was last revised on 2017. Imm gran pct 0.5 % [facility] Comment: Interpretive Data Percent cell count reference ranges are not reported, since discordance with absolute values may lead to misinterpretation of CBC data. Current Interpretive Data was last revised on 2017. Lymphocyte pct 26.9 % [facility] Comment: Interpretive Data Percent cell count reference ranges are not reported, since discordance with absolute values may lead to misinterpretation of CBC data. Current Interpretive Data was last revised on 2017. Monocyte pct 8.0 % [facility] Comment: Interpretive Data Percent cell count reference ranges are not reported, since discordance with absolute values may lead to misinterpretation of CBC data. Current Interpretive Data was last revised on 2017. Eosinophil pct 1.7 % [facility] Comment: Interpretive Data Percent cell count reference ranges are not reported, since discordance with absolute values may lead to misinterpretation of CBC data. Current Interpretive Data was last revised on 2017. Basophil pct 1.0 % [facility] Comment: Interpretive Data Percent cell count reference ranges are not reported, since discordance with absolute values may lead to misinterpretation of CBC data. Current Interpretive Data was last revised on 2017. Blood 02/15/2025 2:53 PM CDT 02/15/2025 3:10 PM CDT us Wili Knutson MD LAB BLOOD ORDERABLES Faye mendez Result [facility] Department [place] [address] * CBC with auto differential (02/15/2025 2:53 PM CDT) WBC 4.12 3.80 - 9.90 K/cumm Hgb 15.3 13.0 - 17.5 g/dL [facility] Hct 44.9 38.9 - 50.3 % [facility] Plt 182 150 - 400 K/cumm [facility] MPV 10.4 9.1 - 12.3 fL [facility] RBC 5.01 4.30 - 5.80 M/cumm [facility] MCV 89.6 81.3 - 96.4 fL [facility] MCH 30.5 27.1 - 33.3 pg [facility] MCHC 34.1 32.3 - 35.7 g/dL [facility] RDW CV 13.6 11.1 - 14.9 % [facility] RDW SD 44.9 35.7 - 48.1 fL [facility] NRBC abs 0.00 0.00 - 0.01 K/cumm [facility] Blood 02/15/2025 2:53 PM CDT 02/15/2025 3:10 PM CDT Wili Knutson MD LAB BLOOD ORDERABLES Faye l Result Performing Organization Address [facility]/ZIP Co de Phone Number [facility] [place] [address] * Lactate dehydrogenase (LD) (02/15/2025 2:53 PM CDT) [facility] Lactate dehydrogenase (LDH) 159 100 - 250 Units/L Blood 02/15/2025 2:53 PM CDT 02/15/2025 3:09 PM CDT Wili Knutson MD LAB BLOOD ORDERABLES Faye l Result Performing Organization Address City/[facility]/ZIP Co de Phone Number [facility] [place] [address] * (ABNORMAL) Comprehensive metabolic panel (02/15/2025 2:53 PM CDT) [facility] Sodium 138 135 - 145 mmol/L Potassium, pl 4.2 3.3 - 4.9 mmol/L [facility] Chloride 102 97 - 110 mmol/L [facility] CO2 30 22 - 32 mmol/L [facility] Anion gap 6 2 - 15 mmol/L [facility] BUN 13 6 - 25 mg/dL [facility] Creatinine 1.18 0.80 - 1.30 mg/dL [facility] Glucose 87 70 - 199 mg/dL [facility] Comment: Interpretive Data Fasting glucose >/= 126 [...] classification and Diagnosis of Diabetes Diabetes Care 2021; 46: S19-S40. Current interpretive data was last revised 2022. Calcium 9.1 8.5 - 10.3 mg/dL [facility] Bilirubin, total 0.8 0.1 - 1.2 mg/dL [facility] Protein, pl 6.4(L) 6.5 - 8.5 g/dL [facility] Albumin 4.3 3.5 - 5.0 g/dL [facility] Alk phos 48 40 - 130 Units/L [facility] ALT 12 7 - 55 Units/L [facility] AST 20 10 - 50 Units/L [facility] Blood 02/15/2025 2:53 PM CDT 02/15/2025 3:09 PM CDT Wili Knutson MD LAB BLOOD ORDERABLES Faye mendez Result [facility] Department [place] [address] * Colonoscopy (04/27/2024 1:00 PM CDT) Anatomical Region Laterality Modality Other Narrative Procedure Note Dana Mott MD - 04/27/2024 1:00 PM CDT ENDOSCOPY LAB Patient Name: William Bowling Procedure Date: 04/27/2024 1:00 PM Date of : 1965 Admit Type: Outpatient Age: 58 Gender: Male Attending MD: Dana Mott M.D. Room: [facility] ENDOSCOPY ROOM 05 Note Status: Finalized Procedure: [...] The scope was passed under direct vision.The [id number] was introduced through the anusand advanced to [...] normal business hours, please callthe Nurse Coordinator: [phone] - After hours, evening, nights, weekends andholidays, please call the hospital paver operator at and ask for the GI fellow aerospace control and warning systems. Electronically signed by Dana Mott MD Dana Mott M.D. 04/27/2024 1:17:27 PM Number of Addenda: 0 Note Initiated On: 04/27/2024 1:00 PM us Dana Mott MD ENDOSCOPY PROCEDURES Final Res ult * Hepatitis panel, acute (07/15/2020 8:53 PM CHORAL TEACHER) Hep A IgM Nonreactive Nonreactive [facility] Comment: Interpretive Data: If Hep A IgM Ab is reported as Equivocal, a new sample should be drawn in two weeks for testing. Current interpretive data was last revised on 19. Hep B core IgM Nonreactive Nonreactive [facility] Comment: Interpretive Data If HepB Core IgM Ab is reported as Equivocal, a new sample should be drawn in two weeks for testing. Current interpretive data was last revised on 19. Hep C Ab Nonreactive Nonreactive [facility] Comment:Antibodies to HCV no t detected. Does NOT exclude the possibility of recent exposure to HCV. HepBsAg Nonreactive Nonreactive [facility] Blood specimen (specimen) 07/15/2020 8:53 PM CHORAL TEACHER 07/15/2020 9:08 PM CHORAL TEACHER Murray Borrego MD LAB MICROBIOLOGY - GENERAL ORDERABLES Edited Result - Final [facility] Department [place] [address] from Last 3 Months or Most Recently Relevant to Health Maintenance Insurance [facility] Advance Directives For more information, please contact: [phone] * Full Code (Latest Code Status on [...] 8:08 PM 07/19/2020 5:13 PM Care Teams Early Learning Teacher Relationship Specialty Start Date End Date Adarsh Rivera MD [address] [place] [address] PCP - General 04/19/17 Wili Knutson MD [address] DIV IM BONE MARROW TRANSPLANT[address] [place] [address] Medical Oncologist/Reel Slitter Medical Oncology 08/12/23
--- OUTSIDE RECORDS SUMMARY | 2025-04-15 14:45 | XMS_ITS | Encounter Summary ---
Author Organization [facility] Address [address] [place] [address] Phone Care Team Providers Care Completions Manager Name Role Phone Adarsh Rivera MD Primary Care Provider Oswaldo Augustine MD PhD Unavailable [phone] Wili Knutson MD Unavailable [phone] Encounter Details Date Type Department Care Team (Late st Contact Info) Description 09/10/2020 Telephone [facility] Oncology [address] [facility] 7th [place] [address] [place] [address] Chloe Marcano Social History Tobacco Use Types Packs/Day Years Used Date Smoking Tobacco: Never Smokeless Tobacco: Never PHQ-2 Answer Date Recorded PHQ-2 Total Score (If total score is 3 or more points, staff should administer the PHQ-9) 0 07/11/2020 Sex and Gender Information Value Date Recorded Sex Assigned at Not on file 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 TESTING Gender Identity Not on file Sexual Orientation Not on file documented as of this encounter Plan of Treatment Not on file documented as of this encounter Visit Diagnoses Not on filedocumented in this encounter Care Teams Completions Manager Relationship Specialty Start Date End Date Adarsh Rivera MD [address] [facility] [address] [place] [address] PCP - General 04/19/17 Oswaldo Augustine MD PhD [address] [facility] [address] [place] [address] Consulting Physician Medical Oncology 06/23/20 3 Wili Knutson MD [address] IM BONE MARROW TRANSPLANT[address] [place] [address] Medical Oncologist/Check Pilot Medical Oncology 08/12/23 documented as of this encounter
--- OUTSIDE RECORDS SUMMARY | 2025-04-15 14:45 | XMS_ITS ---
Author Organization [facility] Address [address] [place] [address] Care Team Providers Care Surgical Coordinator Name Role Phone Adarsh Rivera MD Primary Care Provider Wili Knutson MD Unavailable [phone] Active Problems Patient Care Coordination No te Formatting of this note is d ifferent from the original. BMT Inpatient Care Coordination Overview Diagnosis Hairy Cell Treatment Plan BMT/IEC/DCI Plan Clinical Trial Inpatient Floor [address]00 Reason for Admission cellulitis Transplant/IEC Planning Patient Education Completed Consents Done IDMs Insurance Approvals/Issues Discharge Planning Anticipated Discharge Date Issue to be Resolved Before Discharge Living Situation/Distance from [facility] Discharge To [place], [place] 30 minutes Caregiver Souse (Shelbi) Requests sent to Case Management and/or Medical Assistants Post-Discharge Followup/Local Care PW Televisit Consent Miscellaneous Notes: 08/12 Derm path bx done & pending, abx for cellulitis Problem Noted Date Diagnosed Date Hx of colonic polyps 02/23/2024 Colon cancer screening 02/23/2024 CKD (chronic kidney disease) stage 2, GFR 60-89 ml/min 01/27/2023 Rectal spasm 11/17/2020 Overview (11/17/2020): Added automatically from request for surgery [id number] Rectal pain 11/17/2020 Overview (11/27/2020): Added automatically from request for surgery [id number] History of esophageal stricture 10/01/2020 Overview (10/01/2020): Added automatically from request for surgery [id number] Nausea 09/01/2020 Cellulitis 08/22/2020 Assessment & Plan (08/22/2020 2:08 PM CUTTER OPERATOR HELPER): 55 yo male with hairy cell leukemia [...] 07/15/2020 Assessment & Plan (07/15/2020 8:51 PM CUTTER OPERATOR HELPER): Presented with one day of fever up to 101.5 at home, T 100.0 on arrival, Tachycardic to 122. No sick contacts. ANC 0.1. - cefepime started - RVP, blood cultures, UA pending - CXR - IVF Elevated LFTs 07/15/2020 Assessment & Plan (07/15/2020 8:51 PM CUTTER OPERATOR HELPER): AST/ALT/Alk phos all in 200's noted on labs 07/14. Was taken off fluconazole as a result, T bili 1.0 at that time. 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 - continue home prophylaxis w/voriconazole - continue allopurinol - Monitor Uric acid/bili/LDH - holding cipro/bactrim prophylaxis - follows with Dr. Augustine Pancytopenia 06/23/2020 Assessment & Plan (07/15/2020 8:49 PM CUTTER OPERATOR HELPER): Due to chemotherapy - continue to monitor - holding DVT PPX Prostate cancer 04/28/2012 Assessment & Plan (07/15/2020 8:53 PM CUTTER OPERATOR HELPER): localized s/p prostatectomy without RT in 2011 Current Treatment and Therapy Plans No current plan information found. Past Treatment and Therapy Plans BMT/ONC IP BLOOD PRODUCTS Plan Name Start Date Discontinue Date Treatment Medications Discontinue Reason Plan Provider COVID-19 - BMT (CMV NEGATIVE/UNTESTED) ADULT BLOOD AND PLATELET ADMINISTRATION FOR INPATIENT 0 11/22/2023 No medications scheduled. Automatic discontinuation of dormant plans Saurabh Parra MD COVID-19 - BMT (CMV NEGATIVE/UNTESTED) ADULT BLOOD AND PLATELET ADMINISTRATION FOR INPATIENT 07/13/2020 07/19/2020 No medications scheduled. Patient Discharged Oswaldo Augustine MD PhD Blood Products Plan Name Start Date Discontinue Date Treatment Medications Discontinue Reason Plan Provider COVID-19 - BMT (CMV NEGATIVE/UNTESTED) ADULT BLOOD AND PLATELET ADMINISTRATION FOR OUTPATIENT 0 11/22/2023 No medications scheduled. Automatic discontinuation of dormant plans Oswaldo Augustine MD PhD Line Care Plan Name Start Date Discontinue Date Treatment Medications Discontinue Reason Plan Provider IV MAINTENANCE THERAPY PLAN 0 11/22/2023 No medications scheduled. Automatic discontinuation of dormant plans Oswaldo Augustine MD PhD Oncology Chemotherapy Treatment Plan Name Start Date Discontinue Date Treatment Medications Discontinue Reason Plan Provider Cycles Cladribine Single Agent - Leukemia 07/07/20 20 09/09/2023 cladribine (LEUSTATIN) IVPB Automatic discontinuation of dormant plans Oswaldo Augustine MD PhD 1 of 1 cycle started Oncology Supportive Care Therapy Plan Plan Name Start Date Discontinue Date Treatment Medications Discontinue Reason Plan Provider HYDRATION THERAPY PLAN 09/02/2020 11/22/2023 No medications scheduled. Automatic discontinuation of dormant plans Oswaldo Augustine MD PhD
--- OUTSIDE RECORDS SUMMARY | 2025-04-15 14:45 | XMS_ITS | Encounter Summary ---
Author Organization [facility] Address [address] [place] [address] Phone Care Team Providers Care Architectural Model Maker Name Role Phone Adarsh Rivera MD Primary Care Provider Oswaldo Augustine MD PhD Unavailable [phone] Wili Knutson MD Unavailable Encounter Details Date Type Department Care Team (Latest Contact Info) Description 06/17/2020 Orders Only [facility] Scanning, Provider Social History Tobacco Use Types Packs/Day Years Used Date Smoking Tobacco: Never Sex and Gender Information Value Date Recorded Sex Assigned at Not on file Legal Sex Male 6:53 AM CRAB FISHER Gender Identity Not on file Sexual Orientation Not on file documented as of this encounter Plan of Treatment Not on file documented as of this encounter Procedures Procedure Name Priority Date/Time Associated Diagnosis Comments SCAN - RADIOLOGY/IMAGING 06/17/2020 documented in this encounter Results * SCAN - RADIOLOGY/IMAGING (06/17/2020) Anatomical Region Laterality Modality Other us Provider Scanning Final Result documented in this encounter Visit Diagnoses Not on filedocumented in this encounter Additional Health Concerns Infection Onset Date Last Indicated Resolved Time COVID: Suspected 07/11/2020 07/11/2020 07/12/2020 6:13 AM CDT Respiratory Infection (GILL), contact + droplet Comment:07/12/2020 Patient classified as Low Risk for COVID-19 and has one negative COVID-19 test. Patient meets criteria for COVID-19 isolation discontinuation Haley A. Feroz, RN Automatically added due to negative COVID-19 result. 07/12/2020 07/12/2020 07/12/2020 8:21 AM C DT COVID: Suspected 07/15/2020 07/15/2020 07/16/2020 3:38 AM CRAB FISHER Respiratory Infection (GILL), contact + droplet Comment:Automatically added due to negative COVID-19 result. Patient classified as Low Risk for COVID-19 and has one negative COVID-19 test. Patient meets criteria for COVID-19 isolation discontinuation 07/16/2020 07/16/2020 07/16/2020 7:[address] documented as of this encounter Care Teams Architectural Model Maker Relationship Specialty Start Date End Date Adarsh Rivera MD [address] [place] [address] PCP - General 04/19/17 Oswaldo Augustine MD PhD [address] [place] [address] Consulting Physician Medical Oncology 06/23/20 3 Wili Knutson MD [address] DIV IM BONE MARROW TRANSPLANT, [address] [place] [address] Medical Oncologist/Grease Maker Medical Oncology 08/12/23 documented as of this encounter
--- OUTSIDE RECORDS SUMMARY | 2025-04-15 14:45 | XMS_ITS | Encounter Summary ---
Author Organization [facility] Address [address] [place] [address] Phone Care Team Providers Care Director Park Name Role Phone Adarsh Rivera MD Primary Care Provider Wili Knutson MD Unavailable [phone] Encounter Details Date Type Department Care Team (Late st Contact Info) Description 03/21/2024 Telephone [facility] Oncology [address] [facility] [address] [place] [address] Yen Hall, B.A. Social History [...] 0 07/11/2020 Personal Safety Answer Date Recorded Getting School Help Needed Not on file 11/07 Sex and Gender Information Value Date Recorded Sex Assigned at Not on file Legal Sex Male 6:53 AM DESK REPRESENTATIVE Gender Identity Not on file Sexual Orientation Not on file documented as of this encounter Plan of Treatment Not on file documented as of this encounter Visit Diagnoses Not on filedocumented in this encounter Care Teams Director Park Relationship Specialty Start Date End Date Adarsh Rivera MD [address] [place] [address] PCP - General 04/19/17 Wili Knutson MD [address] DIV IM BONE MARROW TRANSPLANT, [address] [place] [address] Medical Oncologist/Circuit Walker Medical Oncology 08/12/23 documented as of this encounter
--- OUTSIDE RECORDS SUMMARY | 2025-04-15 14:45 | XMS_ITS | Encounter Summary ---
Author Organization [facility] Address [address] [place] [address] Phone Care Team Providers Care Straightening Press Operator Helper Name Role Phone Adarsh Rivera MD Primary Care Provider Oswaldo Augustine MD PhD Unavailable [phone] Wili Knutson MD Unavailable [phone] Encounter Details Date Type Department Care Team (Late st Contact Info) Description 04/06/2022 Telephone [facility] Oncology [address] [facility] [address] [place] [address] Yen Hall, B.A. Social History [...] on file Legal Sex Male 6:53 AM PUBLIC BATH ATTENDANT Gender Identity Not on file Sexual Orientation Not on file documented as of this encounter Plan of Treatment Not on file documented as of this encounter Visit Diagnoses Not on filedocumented in this encounter Care Teams Straightening Press Operator Helper Relationship Specialty Start Date End Date dAarsh Rivera MD [address] [facility] [address] [place] [address] PCP - General 04/19/17 Oswaldo Augustine MD PhD [address] [facility] [address] [place] [address] Consulting Physician Medical Oncology 06/23/20 3 Wili Knutson MD [address] DIV IM BONE MARROW TRANSPLANT, [address] [place] [address] Medical Oncologist/Powder Coat Painter Medical Oncology 08/12/23 documented as of this encounter
[2025-04-15 15:29] LABS: Hematocrit 45.0 % (42.0-52.0); Hemoglobin 14.9 g/dL (14.0-18.0)
[2025-04-15 15:40] LABS: Anion Gap 1 mmol/L (4-12); Blood Urea Nitrogen 13 mg/dL (9-20); Calcium 9.2 mg/dL (8.4-10.2); Carbon Dioxide 27 mmol/L (22-30); Chloride 104 mmol/L (98-107); Estimated Glomerular Filt Rate > 60; Glucose 91 mg/dL (65-110); Potassium 4.2 mmol/L (3.4-5.0); Sodium 132 mmol/L (137-145)
[2025-04-15 15:41] LABS: INR 1.0; Prothrombin Time 13.1 Seconds (11.1-14.7)
[2025-04-15 15:42] LABS: Partial Thromboplastin Time 23.6 Seconds (22.3-36.8)
== END 2025-04-15 14:27 | disposition home or self-care (01) ==
PROVIDERS: Anesthesiology; PCP Family Medicine; Visit Provider Surgery
DX: Z01.812 Encounter for preprocedural laboratory examination (principal); C91.40 Hairy cell leukemia not having achieved remission; N28.9 Disorder of kidney and ureter, unspecified; K42.9 Umbilical hernia without obstruction or gangrene
CPT/HCPCS: 36415; 80048; 85014; 85018; 85610; 85730; 86850; 86900; 86901

== ENCOUNTER 2025-04-23 02:31 | Day surgery (SDC) | payer OTHER, SELFPAY ==
[2025-04-12 14:03] VITALS: BMI 29.5
--- NOTE | 2025-04-12 14:13 | PC.NURSE ---
Report to the Outpatient Waiting Room, entrance under the green pavilion located off [facility], at time _0600_ on date _[id number]_. Planned Procedure Time: _0730_.? Time changes happen often and if your time is changed the preop area will call you the afternoon before. - You and your visitor will be asked to self-screen and do not enter if you have any COVID symptoms. Please call surgeon if you need to reschedule. - A mask is optional within the hospital at this time. Patients may have clear liquids (water, carbonated beverages, clear teas, apple juice) until 3 hours prior to surgery with a maximum of 20 ounces. - No food from midnight until time of surgery and no smoking, or chewing tobacco (or any form of nicotine). No chewing gum, candy or mints. Take only the following medications with a SIP of water on the morning of surgery: ___None____ DO NOT STOP ANY OF YOUR OTHER PRESCRIPTION MEDICATIONS PRIOR TO SURGERY EXCEPT THE FOLLOWING Hold all vitamins and supplements for 3 days per anesthesiologist. Medications to discontinue per physician Date to take last npog__[id number]___ Please no make-up, nail gabonese, hairspray, perfume, deodorant, or body powder the day of surgery.? No jewelry (including any body piercings) or valuables the day of surgery, leave them at home.? Please take a shower or bath the night before, or the morning of, surgery with an antibacterial soap.? Wear comfortable, loose fitting clothing.? - Jewelry must be removed prior to entering the operating room.? Rings and piercings that are not removed may be cut off. - The hospital will not accept responsibility for valuables.? - Please leave all valuables, including medications, at home the day of surgery. If you are going home after surgery, a licensed tractor sweeper driver must drive you home.? - NO public transportation without another adult if you receive anesthesia. - We recommend that an adult stay with you for 24 hours following discharge. - We also recommend that you do not drive, make important decision, drink alcoholic beverages, or take any drugs that were not prescribed by your health care provider for at least 24 hours after your discharge time. Follow any additional instructions given to you from your surgeon. Telephone instructions given to __John___and asked if any additional questions and then verbalized understanding. Patient advised to call surgeon office or pre surgery nurse liaison [phone] if any additional questions.
[2025-04-23] VITALS (10 sets, daily range): BP systolic 97–131; BP diastolic 64–80; PULSE 50–79; RESP 10–20; TEMP 36.4–36.5; O2SAT 97–100
--- OUTSIDE RECORDS SUMMARY | 2025-04-23 02:35 | XMS_ITS ---
Author Organization [facility] Address [address] [place] [address] Care Team Providers Care Team Sports Sales Associate Name Role Phone Adarsh Rivera MD Primary Care Provider Wili Knutson MD Unavailable [phone] Active Problems Patient Care Coordination No te Formatting of this note is d ifferent from the original. BMT Inpatient Care Coordination Overview Diagnosis Hairy Cell Treatment Plan BMT/IEC/DCI Plan Clinical Trial Inpatient Floor 9800 Reason for Admission cellulitis Transplant/IEC Planning Patient Education Completed Consents Done IDMs Insurance Approvals/Issues Discharge Planning Anticipated Discharge Date Issue to be Resolved Before Discharge Living Situation/Distance from [facility] Discharge To [place], [place] 30 minutes Caregiver Souse (Shelbi) Requests [...] (11/17/2020): Added automatically from request for surgery [id number] Rectal pain 11/17/2020 Overview (11/27/2020): Added automatically from request for surgery [id number] History of esophageal stricture 10/01/2020 Overview (10/01/2020): Added automatically from request for surgery [id number] Nausea 09/01/2020 Cellulitis 08/22/2020 Assessment & Plan (08/22/2020 2:08 PM AUTOMOBILE ACCESSORIES INSTALLER): 55 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 No sick contacts. ANC 0.1. - cefepime started - RVP, blood cultures, UA pending - CXR - IVF Elevated LFTs 07/15/2020 Assessment & Plan (07/15/2020 8:51 PM AUTOMOBILE ACCESSORIES INSTALLER): AST/ALT/Alk phos all in 200's noted on labs 07/14. Was taken off fluconazole as a result, T bili 1.0 at that time. 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 - continue home prophylaxis w/voriconazole - continue allopurinol - Monitor Uric acid/bili/LDH - holding cipro/bactrim prophylaxis - follows with Dr. Augustine Pancytopenia 06/23/2020 Assessment & Plan (07/15/2020 8:49 PM AUTOMOBILE ACCESSORIES INSTALLER): Due to chemotherapy - continue to monitor - holding DVT PPX Prostate cancer 04/28/2012 Assessment & Plan (07/15/2020 8:53 PM AUTOMOBILE ACCESSORIES INSTALLER): localized s/p prostatectomy without RT in 2011 [...]
--- OUTSIDE RECORDS SUMMARY | 2025-04-23 02:35 | XMS_ITS | Encounter Summary ---
Author Organization [facility] Address [address] [place] [address] Phone Care Team Providers Care Operating Room Tech Name Role Phone Adarsh Rivera MD Primary Care Provider Wili Knutson MD Unavailable [phone] Encounter Details Date Type Department Care Team (Late st Contact Info) Description 03/21/2024 Telephone [facility] Oncology [address] [facility] [address] [place] [address] Yen Hall, B.A. Social History [...] on file Legal Sex Male 6:53 AM CARPENTER SHIP Gender Identity Not on file Sexual Orientation Not on file documented as of this encounter Plan of Treatment Not on file documented as of this encounter Visit Diagnoses Not on filedocumented in this encounter Care Teams Operating Room Tech Relationship Specialty Start Date End Date Adarsh Rivera MD [address] [place] [address] PCP - General 04/19/17 Wili Knutson MD [address] DIV IM BONE MARROW TRANSPLANT, [address] [place] [address] Medical Oncologist/Automobile Relocation Engineer Medical Oncology 08/12/23 documented as of this encounter
--- OUTSIDE RECORDS SUMMARY | 2025-04-23 02:35 | XMS_ITS | Clinical Summary ---
Author Organization [facility] Address [address] [place] [address] Care Team Providers Care Mirror Polisher Name Role Phone Adarsh Rivera MD Primary Care Provider Wili Knutson MD Unavailable [phone] Allergies Active Allergy Reactions Criticality Noted Date Comments Prochlorperazine Other (See comments) Medium 0 Tightness, tingling, and twitching on right side of the mouth Medications butalbital-acetamin ophen-caffeine (ESGIC) 50-325-40 mg per tabletIndications:P ancytopenia 1 tablet as needed for migraine (2nd line after rizatriptan) Active omeprazole (PriLOSEC) 20 mg capsuleIndications: Pancytopenia daily Active rizatriptan STUDENT SERVICES VICE PRESIDENT (MAXALT-STUDENT SERVICES VICE PRESIDENT) 10 mg disintegrating tablet as needed 1 [...] be Resolved Before Discharge Living Situation/Distance from [facility] Discharge To [place], [place] 30 minutes Caregiver Peyman Echavarria) Requests [...] (11/17/2020): Added automatically from request for surgery [id number] Rectal pain 11/17/2020 Overview (11/27/2020): Added automatically from request for surgery [id number] History of esophageal stricture 10/01/2020 Overview (10/01/2020): Added automatically from request for surgery [id number] Nausea 09/01/2020 Cellulitis 08/22/2020 Assessment & Plan (08/22/2020 2:08 PM ELEMENTARY SUBSTITUTE TEACHER): 55 yo male with hairy cell [...] 07/15/2020 Assessment & Plan (07/15/2020 8:51 PM ELEMENTARY SUBSTITUTE TEACHER): Presented with one day of fever up to 101.5 at home, T 100.0 on arrival, Tachycardic to 122. No sick contacts. ANC 0.1. - cefepime started - RVP, blood cultures, UA pending - CXR - IVF Elevated LFTs 07/15/2020 Assessment & Plan (07/15/2020 8:51 PM ELEMENTARY SUBSTITUTE TEACHER): AST/ALT/Alk phos all in 200's noted on labs 07/14. Was taken off fluconazole as a result, T bili 1.0 at that time. 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 - continue home prophylaxis w/voriconazole - continue allopurinol - Monitor Uric acid/bili/LDH - holding cipro/bactrim prophylaxis - follows with Dr. Augustine Pancytopenia 06/23/2020 Assessment & Plan (07/15/2020 8:49 PM ELEMENTARY SUBSTITUTE TEACHER): Due to chemotherapy - continue to monitor - holding DVT PPX Prostate cancer 04/28/2012 Assessment & Plan (07/15/2020 8:53 PM ELEMENTARY SUBSTITUTE TEACHER): localized s/p prostatectomy without RT in 2012 Encounters Date Type Department Care Team Description 02/22/2025 11:30 AM CDT Office Visit [facility] Bone Marrow Transplant [address] [address] [address] [place] [address] Za Crane, INDRA Hairy cell leukemia, in remission (HCC) (Primary Dx) 02/19/2025 4:13 PM CDT - 02/19/2025 11:59 PM CDT Hospital Encounter [address] [place] [address] CKD (chronic kidney disease) stage 2, GFR 60-89 ml/min Discharge Disposition: Discharge to home or self care 02/19/2025 3:00 PM CDT Office Visit [facility] Nephrology [address] [facility] Advanced Medicine 5th [place] [address] [place] [address] Blayne Alvarez MD CKD (chronic kidney disease) stage 2, GFR 60-89 ml/min (Primary Dx) 02/15/2025 4:15 PM CDT Lab [facility] Medicine ([facility]) [address] [place] [address] Hairy cell leukemia, in remission (HCC) from Last 3 Months Immunizations Immunization Administration Dates Next Due Pfizer SARS-CoV-2 Monovalent Vaccination (12+ Yrs) PURPLE 05/02/2021 Surgical History Surgery Date Site/Laterality Comments CO VASECTOMY UNI/BI SPX W/POSTOP SEMEN EXAMS Surgery [...] on file Legal Sex Male 6:53 AM ELEMENTARY SUBSTITUTE TEACHER Gender Identity Not on file Sexual [...] CDT HEPATITIS PANEL, ACUTE Routine 8:53 PM ELEMENTARY SUBSTITUTE TEACHER from Last 3 Months or Most Recently Relevant to Health Maintenance Results * Urinalysis reflex to microscopic (02/19/2025 4:13 PM CDT) Color, ur Straw Yellow Clarity, ur Clear Clear [facility] Specific gravity, ur 1.005 1.003 - 1.030 [facility] pH, urine 6.0 [facility] Comment: Interpretive Data U rine pH is affected by diet, medications, systemic acid-base disturbances, and renal tubular function. pH may affect urinary stone formation. For example, urine pH below 6.0 may help reduce the tendency for calcium phosphate stones and pH greater than 6.0 may reduce the tendency for uric acid stone formation. Source: [facility] Current Interpretive Data was last revised on 2017 Protein, ur ql Negative Negative [facility] Glucose, ur ql Negative Negative [facility] Ketones, ur Negative Negative [facility] Bilirubin, ur Negative Negative [facility] Blood, ur Negative Negative [facility] Urobilinogen, ur <2.0 <2.0 mg/dL [facility] Nitrite, ur Negative Negative [facility] Leukocyte esterase, ur Negative Negative [facility] UA reflex comment Reflex conditions for microscopic UA not met. [facility] Urine 02/19/2025 4:13 PM CDT 02/19/2025 5:20 PM CDT us Blayne Alvarez MD LAB URINE ORDERABLES Fin al Result [facility] Department [place] [address] * POCT urinalysis dipstick (02/19/2025 3:01 PM CDT) Glucose, ur, POC Negative Negative Bilirubin, ur, POC Negative Negative Ketones, ur, POC Negative Negative Specific [place], POC Comment:<=1.005 Blood, ur, POC Negative Negative pH, ur, POC 5.5 5.0 - 8.0 Protein, ur, POC Negative Negative Urobilinogen, urine, POC 0.2 0.2 - 1.0 mg/dL Nitrite, ur, POC Negative Negative Leukocytes, ur, POC Negative Negative Lot Number [id number] Urine 02/19/2025 3:01 PM CDT Blayne Alvarez MD POINT OF CARE TEST ORDER JULIANNA Final Result * eGFR (02/15/2025 2:53 PM CDT) Pathologist [facility] eGFR 71 >=60 mL/min/1. 73 m2 Comment: [...] MD LAB BLOOD ORDERABLES Faye mendez Result [facility] [address] [facility] Department [place] [address] * Differential, auto (02/15/2025 2:53 PM CDT) Pathologist [facility] Neutrophil abs 2.55 1.50 - 6.50 K/cumm Imm gran abs 0.02 0.00 - 0.10 K/cumm [facility] Lymphocyte abs 1.11 0.80 - 3.30 K/cumm [facility] Monocyte abs 0.33 0.20 - 0.80 K/cumm [facility] Eosinophil abs 0.07 0.00 - 0.50 K/cumm [facility] Basophil abs 0.04 0.00 - 0.10 K/cumm [facility] Neutrophil pct 61.9 % [facility] Comment: Interpretive Data Percent cell count reference ranges are not reported, since discordance with absolute values may lead to misinterpretation of CBC data. Current Interpretive Data was last revised on 2017. Imm gran pct 0.5 % [facility] Comment: Interpretive Data Percent cell count reference ranges are not reported, since discordance with absolute values may lead to misinterpretation of CBC data. Current Interpretive Data was last revised on 2017. Lymphocyte pct 26.9 % [facility] Comment: Interpretive Data Percent cell count reference ranges are not reported, since discordance with absolute values may lead to misinterpretation of CBC data. Current Interpretive Data was last revised on 2017. Monocyte pct 8.0 % [facility] Comment: Interpretive Data Percent cell count reference ranges are not reported, since discordance with absolute values may lead to misinterpretation of CBC data. Current Interpretive Data was last revised on 2017. Eosinophil pct 1.7 % [facility] Comment: Interpretive Data Percent cell count reference ranges are not reported, since discordance with absolute values may lead to misinterpretation of CBC data. Current Interpretive Data was last revised on 2017. Basophil pct 1.0 % [facility] Comment: Interpretive Data Percent cell count reference ranges are not reported, since discordance with absolute values may lead to misinterpretation of CBC data. Current Interpretive Data was last revised on 2017. Blood 02/15/2025 2:53 PM CDT 02/15/2025 3:10 PM CDT us Wili Knutson MD LAB BLOOD ORDERABLES Faye mendez Result [facility] Department of Laboratories [place], [place] [id number] * CBC with auto differential (02/15/2025 2:53 PM CDT) WBC 4.12 3.80 - 9.90 K/cumm Hgb 15.3 13.0 - 17.5 g/dL [facility] Hct 44.9 38.9 - 50.3 % [facility] Plt 182 150 - 400 K/cumm [facility] MPV 10.4 9.1 - 12.3 fL [facility] RBC 5.01 4.30 - 5.80 M/cumm [facility] MCV 89.6 81.3 - 96.4 fL [facility] MCH 30.5 27.1 - 33.3 pg [facility] MCHC 34.1 32.3 - 35.7 g/dL [facility] RDW CV 13.6 11.1 - 14.9 % [facility] RDW SD 44.9 35.7 - 48.1 fL [facility] NRBC abs 0.00 0.00 - 0.01 K/cumm [facility] Blood 02/15/2025 2:53 PM CDT 02/15/2025 3:10 PM CDT Wili Knutson MD LAB BLOOD ORDERABLES Faye l Result Performing Organization Address [facility]/ZIP Co de Phone Number [facility] Department [place] [address] * Lactate dehydrogenase (LD) (02/15/2025 2:53 PM CDT) [facility] Lactate dehydrogenase (LDH) 159 100 - 250 Units/L Blood 02/15/2025 2:53 PM CDT 02/15/2025 3:09 PM CDT Wili Knutson MD LAB BLOOD ORDERABLES Faye l Result [facility] Department [place] [place] [address] * (ABNORMAL) Comprehensive metabolic panel (02/15/2025 2:53 PM CDT) [facility] Sodium 138 135 - 145 mmol/L Potassium, pl 4.2 3.3 - 4.9 mmol/L [facility] Chloride 102 97 - 110 mmol/L [facility] CO2 30 22 - 32 mmol/L [facility] Anion gap 6 2 - 15 mmol/L [facility] BUN 13 6 - 25 mg/dL [facility] Creatinine 1.18 0.80 - 1.30 mg/dL [facility] Glucose 87 70 - 199 mg/dL [facility] Comment: Interpretive Data Fasting glucose >/= 126 [...] 2022. Calcium 9.1 8.5 - 10.3 mg/dL [facility] Bilirubin, total 0.8 0.1 - 1.2 mg/dL [facility] Protein, pl 6.4(L) 6.5 - 8.5 g/dL [facility] Albumin 4.3 3.5 - 5.0 g/dL [facility] Alk phos 48 40 - 130 Units/L [facility] ALT 12 7 - 55 Units/L [facility] AST 20 10 - 50 Units/L [facility] Blood 02/15/2025 2:53 PM CDT 02/15/2025 3:09 PM CDT Wili Knutson MD LAB BLOOD ORDERABLES Faye mendez Result [facility] Department [place] [address] * Colonoscopy (04/27/2024 1:00 PM CDT) Anatomical Region Laterality Modality Other Narrative Procedure Note Dana Mott MD - 04/27/2024 1:00 PM CDT ENDOSCOPY LAB Patient Name: William Bowling Procedure Date: 04/27/2024 1:00 PM Date of : 1965 Admit Type: Outpatient Age: 58 Gender: Male Attending MD: Dana Mott M.D. Room: [facility] ENDOSCOPY ROOM 05 Note Status: Finalized [...] The scope was passed under direct vision.The [id number] was introduced through the anusand advanced to [...] normal business hours, please callthe Nurse Coordinator: [phone] - After hours, evening, nights, weekends andholidays, please call the hospital paraffin plant operator at and ask for the GI fellow operations research manager. Electronically signed by Dana Mott MD Dana Mott M.D. 04/27/2024 1:17:27 PM Number of Addenda: 0 Note Initiated On: 04/27/2024 1:00 PM us Dana Mott MD ENDOSCOPY PROCEDURES Final Res ult * Hepatitis panel, acute (07/15/2020 8:53 PM ELEMENTARY SUBSTITUTE TEACHER) Hep A IgM Nonreactive Nonreactive [facility] Comment: Interpretive Data: If Hep A IgM Ab is reported as Equivocal, a new sample should be drawn in two weeks for testing. Current interpretive data was last revised on 19. Hep B core IgM Nonreactive Nonreactive [facility] Comment: Interpretive Data If HepB Core IgM Ab is reported as Equivocal, a new sample should be drawn in two weeks for testing. Current interpretive data was last revised on 19. Hep C Ab Nonreactive Nonreactive [facility] Comment:Antibodies to HCV no t detected. Does NOT exclude the possibility of recent exposure to HCV. HepBsAg Nonreactive Nonreactive [facility] Blood specimen (specimen) 07/15/2020 8:53 PM ELEMENTARY SUBSTITUTE TEACHER 07/15/2020 9:08 PM ELEMENTARY SUBSTITUTE TEACHER Murray Borrego MD LAB MICROBIOLOGY - GENERAL ORDERABLES Edited Result - Final [facility] Department [place] [address] from Last 3 Months or Most Recently Relevant to Health Maintenance Insurance [facility] [employer] Advance Directives For more information, please contact: [phone] * Full Code (Latest Code Status on [...] 8:08 PM 07/19/2020 5:13 PM Care Teams Mirror Polisher Relationship Specialty Start Date End Date Adarsh Rivera MD [address] [facility] [address] [place] [address] PCP - General 04/19/17 Wili Knutson MD [address] DIV IM BONE MARROW TRANSPLANT, [address] [place] [address] Medical Oncologist/Blocker And Polisher Gold Wheel Medical Oncology 08/12/23
--- OUTSIDE RECORDS SUMMARY | 2025-04-23 02:35 | XMS_ITS | Encounter Summary ---
Author Organization [facility] Address [address] [place] [address] Phone Care Team Providers Care Online Education Manager Name Role Phone Adarsh Rivera MD Primary Care Provider Oswaldo Augustine MD PhD Unavailable [phone] Wili Knutson MD Unavailable [phone] Encounter Details Date Type Department Care Team (Late st Contact Info) Description 09/10/2020 Telephone [facility] Oncology [address] [facility] 7th [place] [address] [place] [id number] Chloe Marcano Social History Tobacco Use Types Packs/Day Years Used Date Smoking Tobacco: Never Smokeless Tobacco: Never PHQ-2 Answer Date Recorded PHQ-2 Total Score (If total score is 3 or more points, staff should administer the PHQ-9) 0 07/11/2020 Sex and Gender Information Value Date Recorded Sex Assigned at Not on file Legal Sex Male 6:53 AM HEALTH PROGRAM MANAGER Gender Identity Not on file Sexual Orientation Not on file documented as of this encounter Plan of Treatment Not on file documented as of this encounter Visit Diagnoses Not on filedocumented in this encounter Care Teams Online Education Manager Relationship Specialty Start Date End Date Adarsh Rivera MD [address] [facility] [address] [place] [address] PCP - General 04/19/17 Oswaldo Augustine MD PhD [address] [facility] [address] [place] [address] Consulting Physician Medical Oncology 06/23/20 3 Wili Knutson MD [address]ONE MARROW [employer] [place] [address] Medical Oncologist/Rehabilitation Worker Medical Oncology 08/12/23 documented as of this encounter
--- OUTSIDE RECORDS SUMMARY | 2025-04-23 02:35 | XMS_ITS | Encounter Summary ---
Author Organization [facility] Address [address] [place] [address] Phone Care Team Providers Care Dogger Name Role Phone Adarsh Rivera MD Primary Care Provider Oswaldo Augustine MD PhD Unavailable [phone] Wili Knutson MD Unavailable [phone] Encounter Details Date Type Department Care Team (Late st Contact Info) Description 04/06/2022 Telephone [facility] Oncology [address] [facility] [address] [place] [address] Yen Hall, B.A. Social History [...] on file Legal Sex Male 6:53 AM BAG PATCHER Gender Identity Not on file Sexual Orientation Not on file documented as of this encounter Plan of Treatment Not on file documented as of this encounter Visit Diagnoses Not on filedocumented in this encounter Care Teams Dogger Relationship Specialty Start Date End Date Adarsh Rivera MD [address] [facility] [address] [place] [address] PCP - General 04/19/17 Oswaldo Augustine MD PhD [address] [facility] [address] [place] [address] Consulting Physician Medical Oncology 06/23/20 3 Wili Knutson MD [address] IM BONE MARROW TRANSPLANT[address] [place] [address] Medical Oncologist/Senior Storage Administrator Medical Oncology 08/12/23 documented as of this encounter
--- OUTSIDE RECORDS SUMMARY | 2025-04-23 02:35 | XMS_ITS | Encounter Summary ---
Author Organization [facility] Address [address] [place] [address] Phone Care Team Providers Care Generator Switchboard Operator Name Role Phone Adarsh Rivera MD Primary Care Provider Oswaldo Augustine MD PhD Unavailable [phone] Wili Knutson MD Unavailable [phone] Encounter Details Date Type Department Care Team (Latest Contact Info) Description 06/17/2020 Orders Only [facility] Scanning, Provider Social History Tobacco Use Types Packs/Day Years Used Date Smoking Tobacco: Never Sex and Gender Information Value Date Recorded Sex Assigned at Not on file Legal Sex Male 6:53 AM INSPECTION MANAGER Gender Identity Not on file Sexual [...] COVID: Suspected 07/15/2020 07/15/2020 07/16/2020 3:38 AM INSPECTION MANAGER Respiratory Infection (GILL), contact + droplet Comment:Automatically added due to negative COVID-19 result. Patient classified as Low Risk for COVID-19 and has one negative COVID-19 test. Patient meets criteria for COVID-19 isolation discontinuation 07/16/2020 07/16/2020 07/16/2020 7:[address] documented as of this encounter Care Teams Generator Switchboard Operator Relationship Specialty Start Date End Date Adarsh Rivera MD [address] [place] [address] PCP - General 04/19/17 Oswaldo Augustine MD PhD [address] [facility] [address] [place] [address] Consulting Physician Medical Oncology 06/23/20 3 Wili Knutson MD [address] IM BONE MARROW TRANSPLANT[address] [place] [address] Medical Oncologist/Abalone Sheller Medical Oncology 08/12/23 documented as of this encounter
--- OUTSIDE RECORDS SUMMARY | 2025-04-23 02:35 | XMS_ITS | Encounter Summary ---
Author Organization [facility] Address [address] [place] [address] Phone Care Team Providers Care Tube Builder Airplane Name Role Phone Adarsh Rivera MD Primary Care Provider Oswaldo Augustine MD PhD Unavailable [phone] Wili Knutson MD Unavailable [phone] Encounter Details Date Type Department Care Team (Late st Contact Info) Description 04/02/2022 Telephone [facility] Oncology [address] [facility] [address] [place] [address] Yen Hall, B.A. Social History [...] on file Legal Sex Male 6:53 AM MEAL PACKER Gender Identity Not on file Sexual Orientation Not on file documented as of this encounter Plan of Treatment Not on file documented as of this encounter Visit Diagnoses Not on filedocumented in this encounter Care Teams Tube Builder Airplane Relationship Specialty Start Date End Date Adarsh Rivera MD [address] [facility] [address] [place] [address] PCP - General 04/19/17 Oswaldo Augustine MD PhD [address] [facility] [address] [place] [address] Consulting Physician Medical Oncology 06/23/20 3 Wili Knutson MD [address] IM BONE MARROW TRANSPLANT[address] [place] [address] Medical Oncologist/Cylinder Steamer Medical Oncology 08/12/23 documented as of this encounter
--- OUTSIDE RECORDS SUMMARY | 2025-04-23 02:36 | XMS_ITS | Encounter Summary ---
Author Organization [facility] Address [address] [place] [address] Phone Care Team Providers Care Entry Level Programmer Name Role Phone Adarsh Rivera MD Primary Care Provider Oswaldo Augustine MD PhD Unavailable [phone] Wili Knutson MD Unavailable [phone] Reason for Visit * Reason Onset Date Comments SCHEDULE UPDATE 09/01/2020 Encounter Details Date Type Department Care Team (Late st Contact Info) Description 09/01/2020 Telephone [facility] Oncology [address] [facility] [address] [place] [address] Luiza Godoy, [facility] SCHEDULE UPDATE Social History Tobacco Use Types Packs/Day Years Used Date Smoking Tobacco: Never Smokeless Tobacco: Never PHQ-2 Answer Date Recorded PHQ-2 Total Score (If total score is 3 or more points, staff should administer the PHQ-9) 0 07/11/2020 Sex and Gender Information Value Date Recorded Sex Assigned at Not on file Legal Sex Male 6:53 AM LAMINATOR HAND Gender Identity Not on file Sexual Orientation Not on file documented as of this encounter Plan of Treatment Not on file documented as of this encounter Visit Diagnoses Not on filedocumented in this encounter Care Teams Entry Level Programmer Relationship Specialty Start Date End Date Adarsh Rivera MD [address] [facility] [address] [place] [address] PCP - General 04/19/17 Oswaldo Augustine MD PhD [address] [place] [address] Consulting Physician Medical Oncology 06/23/20 3 Wili Knutson MD [address] IM BONE MARROW TRANSPLANT[address] [place] [address] Medical Oncologist/Radiographer Cardiac Catheterization Medical Oncology 08/12/23 documented as of this encounter
[2025-04-23] MEDS: KETOROLAC 15 MG/ML VIAL (*BKC) IV PUSH (06:50)
[2025-04-23] MEDS: ACETAMINOPHEN 500 MG TABLET 1000 MG PO (06:50)
[2025-04-23] MEDS: LACTATED RINGERS 1,000 ML 30 ML IV CONT (06:50)
--- NOTE | 2025-04-23 07:13 | WPDHPUPDATE1 ---
History and Physical Update Update Date/Time: 04/23/25 07:13 History and Physical has been reviewed, including an updated exam of the patient. There are NO changes in the patient's condition. Risks, benefits, and alternatives have been discussed and questions answered. Patient agrees to proceed with procedure.
--- NOTE | 2025-04-23 07:13 | PM.IMHP ---
H&P: HPI History of Present Illness Date/Time: 04/23/25 07:13 Chief Complaint: umbilical hernia Narrative: 59 yo man presents for umbilical hernia repair. He reports no changes since last seen in office. Review of Systems Review of Systems: All systems reviewed & are unremarkable except as noted in HPI and below Constitutional: Constitutional: Denies chills, Denies fever(s), Denies headache(s) and Denies weight loss Eyes: Eyes: Denies change in vision ENT: Denies dizziness, Denies headache(s), Denies neck mass and Denies throat swelling Cardiovascular: Cardiovascular: Denies chest pain, Denies lightheadedness and Denies dyspnea Respiratory: Respiratory: Denies cough, Denies dyspnea and Denies wheezing Gastrointestinal: Gastrointestinal: Denies abdominal pain, Denies change in bowel habits, Denies nausea and Denies vomiting Genitourinary: Genitourinary: Denies hematuria and Denies dysuria Musculoskeletal: Musculoskeletal: Reports as per HPI Integumentary/Breasts: Skin/Breast: Reports as per HPI Neurologic: Denies dizziness and Denies headache(s) Allergic/Immunologic: Allergic/Immunologic: Denies throat swelling and Denies wheezing [facility] Past Medical History Medical History History of leukemia 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 Medial epicondylitis, left elbow Nevus of scalp Surgical History Surgical History S/P prostatectomy Family History Family History Father Malignant neoplasm of prostate Family history of malignant neoplasm of brain Social History Social History Social History: Smoking status: Never smoker Second hand tobacco smoke exposure: No Alcohol intake: never Substance use: never Substance use type: does not use Do You Feel Safe in your Home?: Yes Lack of Transportation: No Lack of Food: Never True Current Housing: I Have Housing Concerned About Future Housing: No Difficulty Paying Gas/Electric Bills: No Difficulty Paying for Meds: No Currently Unemployed: No Education: Bachelor's Degree Difficulty w/ Childcare or Family Care: No Living arrangements: with family Occupation/Education: occupation Gender identity (if verbalized by the patient): Male Sexual Orientation (if Verbalized by the Patient): Straight or Heterosexual Spiritual care concerns: No Meds Home Medications and Allergies Home Medications ?Medication ?Instructions ?Recorded ?Confirmed ?Type pklxnfwvbt-yxmbzidbkxnrt-qtcnlqnr 1 cap PO Q6H PRN pain #60 caps 09/19/24 04/12/25 Rx 50 mg-325 mg-40 mg capsule rizatriptan 10 mg disintegrating 10 mg PO Q2-4H PRN migraine 10/01/24 04/12/25 Rx tablet (Maxalt-MANAGER CUSTOMER SERVICE) headache #12 tabs tadalafil 5 mg tablet (Cialis) 2.5 mg (1/2 x 5 mg) PO DAILY #30 12/07/24 04/12/25 Rx tabs magnesium carb,citrate,oxide 300 mg PO DAILY 04/12/25 04/12/25 History (Magnesium Complex) omeprazole 20 mg capsule,delayed 20 mg PO DAILY 04/12/25 04/12/25 History release Allergies Allergy/AdvReac Type Severity Reaction Status Date / Time prochlorperazine (From AdvReac Other Verified 04/23/25 07:00 Compazine) Vital Signs Vital Signs - 24 hr 04/23/25 06:50 Temperature 97.7 F Pulse Rate 61 Respiratory Rate 16 Blood Pressure 131/80 Pulse Oximetry 100 Oxygen Delivery Room Air Exam Const: General: no acute distress and alert Orientation/consciousness: patient oriented x3 HENMT: Head: normocephalic and atraumatic Ears: hearing grossly normal bilaterally Face/Nose/Sinus: Normal nares present Mouth: Yes Normal oral and palatal mucosa present Eyes: Periorbital: periorbital findings normal Sclera: sclerae normal EOM: EOMs intact bilaterally Neck: Neck: normal visual inspection, no lymphadenopathy and trachea midline Chest: Chest palpation & inspection: normal inspection of the chest Resp: Effort & Inspection: normal respiratory effort Auscultation: clear to auscultation bilaterally Cardio: Jugular venous distension: no JVD Rate: regular rate Rhythm: regular rhythm Heart sounds: S1 normal heart sound present and S2 normal heart sound present Peripheral pulses: Peripheral pulses 2+ throughout GI: Inspection: normal to inspection GI Palp: Yes Soft to palpation, No Tenderness to palpation present (GI), No Guarding due to palpation present (GI), Yes Hernia present umbilical < 3 cm and No Rebound tenderness present Percussion: Yes normal to percussion Auscultation: normal bowel sounds : General: Yes no CVA tenderness Back/Spine/Pelvis: Back: no CVA tenderness Neuro: General: patient oriented x3, no focal motor deficits and CN's II-XI intact bilaterally Cognition (Neuro): normal cognition Speech: normal speech Motor exam (neuro): 5/5 motor strength present throughout Extrem: General: capillary refill normal and no clubbing, cyanosis or edema Assessment and Plan Assessment and plan (1) Umbilical hernia: Code(s): K42.9 - Umbilical hernia without obstruction or gangrene Status: Acute Assessment and Plan: I have recommended laparoscopic umbilical hernia repair with mesh, da Savana assisted. I have discussed the procedure, risks, benefits, and alternatives with the patient. All questions answered. No changes since last seen in office.
--- NOTE | 2025-04-23 07:14 | P.PNAN_ITS ---
Anes - Initial Pre Proc Eval Procedure: Operation Date: 04/23/25 07:30 Proposed Procedures p Laparoscopic Umbilical Hernia Repair with Mesh, DaVinci Assisted - Bro You DO Date/Time: 04/23/25 07:14 Surgeon: Bro You DO Pre Op Diagnosis: [facility] Hernia Patient Data Age: 59 Gender: M Height: 1.75 m Weight: 89.2 kg Last Vital Signs Temp 36.5 C 04/23/25 06:50 Pulse 61 04/23/25 06:50 Resp 16 04/23/25 06:50 BP 131/80 04/23/25 06:50 Pulse Ox 100 04/23/25 06:50 O2 Del Method Room Air 04/23/25 06:50 Allergies Allergy/AdvReac Type Severity Reaction Status Date / Time prochlorperazine (From AdvReac Other Verified 04/23/25 07:00 Compazine) Home Medications ?Medication ?Instructions ?Recorded ?Confirmed ?Type ufiyqiwrej-pylbkunldejim-mdbcpfpa 1 cap PO Q6H PRN pain #60 caps 09/19/24 04/12/25 Rx 50 mg-325 mg-40 mg capsule rizatriptan 10 mg disintegrating 10 mg PO Q2-4H PRN migraine 10/01/24 04/12/25 Rx tablet (Maxalt-EMERGENCY ROOM TECH) headache #12 tabs tadalafil 5 mg tablet (Cialis) 2.5 mg (1/2 x 5 mg) PO DAILY #30 12/07/24 04/12/25 Rx tabs magnesium carb,citrate,oxide 300 mg PO DAILY 04/12/25 04/12/25 History (Magnesium Complex) omeprazole 20 mg capsule,delayed 20 mg PO DAILY 04/12/25 04/12/25 History release Patient hx anesthesia problems: none Family hx anesthesia problems: none Results Review: All pre-operative results and documents have been reviewed as part of the pre- operative evaluation. 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 Medial epicondylitis, left elbow Nevus of scalp Surgical History Surgical History S/P prostatectomy Family History Family History Father Malignant neoplasm of prostate Family history of malignant neoplasm of brain Social History Social History Social History: Smoking status: Never smoker Second hand tobacco smoke exposure: No Alcohol intake: never Substance use: never Substance use type: does not use Do You Feel Safe in your Home?: Yes Lack of Transportation: No Lack of Food: Never True Current Housing: I Have Housing Concerned About Future Housing: No Difficulty Paying Gas/Electric Bills: No Difficulty Paying for Meds: No Currently Unemployed: No Education: Bachelor's Degree Difficulty w/ Childcare or Family Care: No Living arrangements: with family Occupation/Education: occupation Gender identity (if verbalized by the patient): Male Sexual Orientation (if Verbalized by the Patient): Straight or Heterosexual Spiritual care concerns: No Anes - Eval Final PreProcedure Day of Procedure 04/23/25 07:14 Patient weight: overweight Heart: regular rate and rhythm Lungs: clear to auscultation Airway: Mallampati scale class II Neurological: alert and oriented Last oral intake: >/= 8 hours ASA classification: III Emergent: no Anesthetic plan: proceed Anesthesia type and monitoring: general ETT and standard monitoring Results Review: All pre-operative results and documents have been reviewed as part of the pre- operative evaluation. Informed Consent: The patient's anesthetic plan and its attendant risks and benefits were discussed with the patient/family/POA. Questions were solicited and answers provided to the satisfaction of the patient/family/POA.
[2025-04-23] MEDS: ceFAZolin 2 GM in SODIUM CHLORIDE 0.9% IV 50 ML 100 ML IVPB (07:28)
[2025-04-23] MEDS: BUPIVACAINE/EPINEPHRINE 0.5% 50 ML VIAL 30 ML INFILTRATE (08:01)
--- NOTE | 2025-04-23 09:11 | W.PM.PROC2 ---
Procedure Note - Detailed Date of Procedure 04/23/25 Pre-op Diagnosis Umbilical Hernia Post-op Diagnosis Same (2 cm umbilical hernia) Procedure Performed Laparoscopic 2 cm umbilical hernia repair with mesh, da Savana assisted Surgeon Bro You DO Anesthesia General and Local (0.5% bupivacaine with epinephrine) Indications This is a 59-year-old man who presented with an umbilical bulge that was causing some discomfort. He 1st noticed this about 1 year ago and has had some increasing symptoms recently. He was found to have a 2 cm reducible umbilical hernia on exam. Discussions were made with the patient about treatment options and decision was made to proceed with robotic assisted laparoscopic umbilical hernia repair with mesh. Findings Robotic assisted laparoscopic umbilical hernia repair with mesh was performed. The patient was found to have a 2 cm umbilical hernia containing some preperitoneal fat. A robotic transabdominal preperitoneal approach was utilized for repair. A 15 cm x 10 cm Bard soft mesh was placed within the preperitoneal pocket. No specimens were obtained for pathology. No other intra-abdominal abnormalities were noted. Description of Procedure Procedure as well as risks, benefits, and alternatives were discussed with the patient. Written consent was obtained and placed in chart prior to procedure. Patient was brought back to surgical suite. He was placed supine on operating table. Time-out was done to confirm patient and procedure. He was then intubated by the anesthesia department. A bump was placed under his left hip, and the bed was flexed slightly to extend the space between his costal margin and iliac crest. His abdomen was prepped and draped in sterile fashion using chlorhexidine prep. A 5 millimeter incision was made in the left upper quadrant, and a 5 millimeter Optiview trocar was advanced through the abdominal layers under direct visualization. Once inside the abdominal cavity, carbon dioxide insufflation was used to create a pneumoperitoneum. His abdomen was inspected. An 8 millimeter incision was made in the left lower quadrant, and an 8 millimeter robotic trocar was placed under direct visualization. Another 8 millimeter incision was made in the left lateral abdomen, and an 8 millimeter robotic trocar was placed under direct visualization. 0.5% bupivacaine with epinephrine was infiltrated around each port site. The 5 millimeter port was removed, and an 8 mm robotic trocar was placed under direct visualization. The robotic arms were brought up to the patient's bedside and secured to the ports. The camera and instruments were inserted, and I then moved over to the robotic console and took control of the camera and instruments. After careful thorough inspection of the abdominal cavity, I began my dissection at the hernia. A preperitoneal plane was started in the left upper quadrant using scissors with electrocautery. Once the plane was developed it was continued caudally along the left lateral abdomen into the left lower quadrant. The plane was then dissected medially to the midline and the hernia sac and herniated contents were reduced. I then continued the dissection to the right lateral abdominal wall wide enough to allow for mesh placement. I then measured the hernia size. The hernia measured 2 cm. The fascia was closed using an 0-Stratafix running suture in a vertical fashion. A 15 cm x 10 cm Bard soft mesh was then placed within the preperitoneal pocket. This was oriented vertically with the mesh centered on the hernia defect. The mesh was then secured at the center and 4 corners using 3-0 Vicryl simple interrupted sutures. The peritoneum was then closed over the mesh using a 3 0 V lock running absorbable suture. The repair was inspected, and one final inspection was made around the abdominal cavity. The robotic instruments were then removed, and the robotic arms were disengaged from the trocars. The ports were then removed under direct visualization, the camera was removed, and the pneumoperitoneum was released. The skin of the incisions was then approximated using 4-0 Monocryl subcuticular suture. Exofin glue was then applied on top. The patient was then awakened from anesthesia, extubated, and transferred to recovery. Implants Bard soft mesh 15 cm x 10 cm Estimated Blood Loss 5 Complications No immediate complications Condition Stable Disposition Same day [facility] Billing Surgery - Charge Forward: Surgery Billing
[2025-04-23] MEDS: oxyCODONE HCL (*CRX) 5 MG TAB IR PO (10:38)
== END 2025-04-23 11:25 | disposition home or self-care (01) ==
PROVIDERS: PCP Family Medicine; Visit Provider Surgery
PROC: (CPT 49591; principal; 2025-04-23 07:30)
DX: K42.9 Umbilical hernia without obstruction or gangrene (principal); G56.02 Carpal tunnel syndrome, left upper limb; Z98.890 Other specified postprocedural states; Z85.6 Personal history of leukemia; Z80.42 Family history of malignant neoplasm of prostate; Z80.8 Family history of malignant neoplasm of other organs or systems
CPT/HCPCS: 49591; S2900; J0690; A9270; C1781; J0616; J1100; J1885; J2250; J2270; J2405; J2704; J7120

== ENCOUNTER 2025-04-26 04:38 | Emergency (ER) | payer OTHER, SELFPAY ==
--- OUTSIDE RECORDS SUMMARY | 2025-04-26 05:16 | XMS_ITS | Encounter Summary ---
Author Organization [facility] Address [address] [place] [address] Phone Care Team Providers Care Pediatric Hospitalist Name Role Phone Adarsh Rivera MD Primary Care Provider Oswaldo Augustine MD PhD Unavailable [phone] Wiil Knutson MD Unavailable [phone] Reason for Visit * Reason Onset Date Comments SCHEDULE UPDATE 09/01/2020 Encounter Details Date Type Department Care Team (Late st Contact Info) Description 09/01/2020 Telephone [facility] Oncology [address] [facility] [address] [place] [address] Luiza Godoy, [facility] SCHEDULE UPDATE Social History Tobacco Use Types Packs/Day Years Used Date Smoking Tobacco: Never Smokeless Tobacco: Never PHQ-2 Answer Date Recorded PHQ-2 Total Score (If total score is 3 or more points, staff should administer the PHQ-9) 0 07/11/2020 Sex and Gender Information Value Date Recorded Sex Assigned at Not on file Legal Sex Male 6:53 AM OUTSIDE COLLECTOR Gender Identity Not on file Sexual Orientation Not on file documented as of this encounter Plan of Treatment Not on file documented as of this encounter Visit Diagnoses Not on filedocumented in this encounter Care Teams Pediatric Hospitalist Relationship Specialty Start Date End Date Adarsh Rivera MD [address] [facility] [address] [place] [address] PCP - General 04/19/17 Oswaldo Augustine MD PhD [address] [place] [address] Consulting Physician Medical Oncology 06/23/20 3 Wili Knutson MD [address] BONE MARROW TRANSPL[address] [place] [address] Medical Oncologist/Health Technical Writer Medical Oncology 08/12/23 documented as of this encounter
--- OUTSIDE RECORDS SUMMARY | 2025-04-26 05:16 | XMS_ITS | Encounter Summary ---
Author Organization [facility] Address [address] [place] [address] Phone Care Team Providers Care Deskidding Machine Operator Name Role Phone Adarsh Rivera MD Primary Care Provider Oswaldo Augustine MD PhD Unavailable [phone] Wili Knutson MD Unavailable [phone] Encounter Details Date Type Department Care Team (Late st Contact Info) Description 04/06/[address] [facility] Oncology [address] [facility] [address] [place] [address] Yen Hall, B.A. Social History [...] on file Legal Sex Male 6:53 AM TECHNOLOGY ENGINEER Gender Identity Not on file Sexual Orientation Not on file documented as of this encounter Plan of Treatment Not on file documented as of this encounter Visit Diagnoses Not on filedocumented in this encounter Care Teams Deskidding Machine Operator Relationship Specialty Start Date End Date Adarsh Rivera MD [address] [facility] [address] [place] [address] PCP - General 04/19/17 Oswaldo Augustine MD PhD [address] [facility] [address] [place] [address] Consulting Physician Medical Oncology 06/23/20 3 Wili nKutson MD [address] DIV IM BONE MARROW TRANSPLANT, [address] [place] [address] Medical Oncologist/Label Printing Machinist Medical Oncology 08/12/23 documented as of this encounter
--- OUTSIDE RECORDS SUMMARY | 2025-04-26 05:16 | XMS_ITS | Encounter Summary ---
Author Organization [facility] Address [address] [place] [address] Phone Care Team Providers Care Urologist Name Role Phone Adarsh Rivera MD Primary Care Provider Oswaldo Augustine MD PhD Unavailable [phone] Wili Knutson MD Unavailable [phone] Encounter Details Date Type Department Care Team (Late st Contact Info) Description 04/02/2022 Telephone [facility] Oncology [address] [facility] [address] [place] [address] Yen Hall, B.A. Social History [...] on file Legal Sex Male 6:53 AM K9 HANDLER Gender Identity Not on file Sexual Orientation Not on file documented as of this encounter Plan of Treatment Not on file documented as of this encounter Visit Diagnoses Not on filedocumented in this encounter Care Teams Urologist Relationship Specialty Start Date End Date Adarsh Rivera MD [address] [facility] [address] [place] [address] PCP - General 04/19/17 Oswaldo Augustine MD PhD [address] [facility] [address] [place] [address] Consulting Physician Medical Oncology 06/23/20 3 Wili Knutson MD [address] DIV IM BONE MARROW TRANSPLANT[address] [place] [address] Medical Oncologist/Fruit Sprayer Medical Oncology 08/12/23 documented as of this encounter
--- OUTSIDE RECORDS SUMMARY | 2025-04-26 05:16 | XMS_ITS ---
Author Organization [facility] Address [address] [place] [address] Care Team Providers Care Manager Underwriting Name Role Phone Adarsh Rivera MD Primary Care Provider Wili Knutson MD Unavailable [phone] Active Problems Patient Care Coordination No te Formatting of this note is d ifferent from the original. BMT Inpatient Care Coordination Overview Diagnosis Hairy Cell Treatment Plan BMT/IEC/DCI Plan Clinical Trial Inpatient Floor 9800 Reason for Admission cellulitis Transplant/IEC Planning Patient Education Completed Consents Done IDMs Insurance Approvals/Issues Discharge Planning Anticipated Discharge Date Issue to be Resolved Before Discharge Living Situation/Distance from [facility] Discharge To [place], [place] 30 minutes Caregiver Souse (Shelbi) Requests [...] (11/17/2020): Added automatically from request for surgery [id number] Rectal pain 11/17/2020 Overview (11/27/2020): Added automatically from request for surgery [id number] History of esophageal stricture 10/01/2020 Overview (10/01/2020): Added automatically from request for surgery [id number] Nausea 09/01/2020 Cellulitis 08/22/2020 Assessment & Plan (08/22/2020 2:08 PM DIESEL ENGINE ASSEMBLER): 55 yo male with hairy cell leukemia [...] 07/15/2020 Assessment & Plan (07/15/2020 8:51 PM DIESEL ENGINE ASSEMBLER): Presented with one day of fever up to 101.5 at home, T 100.0 on arrival, Tachycardic to 122. No sick contacts. ANC 0.1. - cefepime started - RVP, blood cultures, UA pending - CXR - IVF Elevated LFTs 07/15/2020 Assessment & Plan (07/15/2020 8:51 PM DIESEL ENGINE ASSEMBLER): AST/ALT/Alk phos all in 200's noted on labs 07/14. Was taken off fluconazole as a result, T bili 1.0 at that time. - recheck LFTs, electrolytes, check hep panel GERD (gastroesophageal reflux disease) 0 Assessment & Plan (07/15/2020 8:52 PM DIESEL ENGINE ASSEMBLER): Continue home ppi Hairy cell leukemia 07/04/2020 Assessment & Plan (07/15/2020 8:50 PM DIESEL ENGINE ASSEMBLER): Dx 06/24, BRAF+, on treatment with cladribine, last dose 07/11. - continue home prophylaxis w/voriconazole - continue allopurinol - Monitor Uric acid/bili/LDH - holding cipro/bactrim prophylaxis - follows with Dr. Augustine Pancytopenia 06/23/2020 Assessment & Plan (07/15/2020 8:49 PM DIESEL ENGINE ASSEMBLER): Due to chemotherapy - continue to monitor - holding DVT PPX Prostate cancer 04/28/2012 Assessment & Plan (07/15/2020 8:53 PM DIESEL ENGINE ASSEMBLER): localized s/p prostatectomy without RT in 2011 [...]
--- OUTSIDE RECORDS SUMMARY | 2025-04-26 05:16 | XMS_ITS | Encounter Summary ---
Author Organization [facility] Address [address] [place] [address] Phone Care Team Providers Care Grades 9 12 Tutor Name Role Phone Adarsh Rivera MD Primary Care Provider Oswaldo Augustine MD PhD Unavailable [phone] Wili Knutson MD Unavailable [phone] Encounter Details Date Type Department Care Team (Late st Contact Info) Description 09/10/2020 Telephone [facility] Oncology [address] [facility] [address] [facility] 7th [place] [address] [place] [id number] Chloe Marcano Social History Tobacco Use Types Packs/Day Years Used Date Smoking Tobacco: Never Smokeless Tobacco: Never PHQ-2 Answer Date Recorded PHQ-2 Total Score (If total score is 3 or more points, staff should administer the PHQ-9) 0 07/11/2020 Sex and Gender Information Value Date Recorded Sex Assigned at Not on file Legal Sex Male 6:53 AM QUALITY MANAGER Gender Identity Not on file Sexual Orientation Not on file documented as of this encounter Plan of Treatment Not on file documented as of this encounter Visit Diagnoses Not on filedocumented in this encounter Care Teams Grades 9 12 Tutor Relationship Specialty Start Date End Date Adarsh Rivera MD [address] [facility] [address] [place] [address] PCP - General 04/19/17 Oswaldo Augustine MD PhD [address] [facility] [address] [place] [address] Consulting Physician Medical Oncology 06/23/20 3 Wili Knutson MD [address] IM BONE MARROW TRANSPLANT[address] [place] [address] Medical Oncologist/Signaling Project Engineer Medical Oncology 08/12/23 documented as of this encounter
--- OUTSIDE RECORDS SUMMARY | 2025-04-26 05:16 | XMS_ITS | Encounter Summary ---
Author Organization [facility] Address [address] [place] [address] Phone Care Team Providers Care Ortho Nurse Name Role Phone Adarsh Rivera MD Primary Care Provider Wili Knutson MD Unavailable [phone] Encounter Details Date Type Department Care Team (Late st Contact Info) Description 03/21/2024 Telephone [facility] Oncology [address] [facility] [address] [place] [address] Yen Hall, B.A. 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
--- OUTSIDE RECORDS SUMMARY | 2025-04-26 05:16 | XMS_ITS | Encounter Summary ---
Author Organization [facility] Address [address] [place] [address] Phone Care Team Providers Care Hvac Mechanic Name Role Phone Adarsh Rivera MD Primary Care Provider Oswaldo Augustine MD PhD Unavailable [phone] Wili Knutson MD Unavailable [phone] Encounter Details Date Type Department Care Team (Latest Contact Info) Description 06/17/2020 Orders Only [facility] Scanning, Provider Social History Tobacco Use Types Packs/Day Years Used Date Smoking Tobacco: Never Sex and Gender Information Value Date Recorded Sex Assigned at Not on file 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 Patient classified as Low Risk for COVID-19 and has one negative COVID-19 test. Patient meets criteria for COVID-19 isolation discontinuation 07/16/2020 07/16/2020 07/16/2020 7:[address] documented as of this encounter Care Teams Hvac Mechanic Relationship Specialty Start Date End Date Adarsh Rivera MD [address] [place] [address] PCP - General 04/19/17 Oswaldo Augustine MD PhD [address] [place] [address] Consulting Physician Medical Oncology 06/23/20 3 Wili Knutson MD [address] DIV IM BONE MARROW TRANSPLANT[address] [place] [address] Medical Oncologist/Rotary Drier Feeder Medical Oncology 08/12/23 documented as of this encounter
--- OUTSIDE RECORDS SUMMARY | 2025-04-26 05:16 | XMS_ITS | Clinical Summary ---
Author Organization [facility] Address [address] [place] [address] Care Team Providers Care Side Door Man Name Role Phone Adarsh Rivera MD Primary Care Provider Wili Knutson MD Unavailable [phone] Allergies Active Allergy Reactions Criticality Noted Date Comments Prochlorperazine Other (See comments) Medium 0 Tightness, tingling, and twitching on right side of the mouth Medications butalbital-acetamin ophen-caffeine (ESGIC) 50-325-40 mg per tabletIndications:P ancytopenia 1 tablet as needed for migraine (2nd line after rizatriptan) Active omeprazole (PriLOSEC) 20 mg capsuleIndications: Pancytopenia daily Active rizatriptan DESIGNER (MAXALT-DESIGNER) 10 mg disintegrating tablet as needed 1 [...] be Resolved Before Discharge Living Situation/Distance from [facility] Discharge To [place], [place] 30 minutes Caregiver Peyman Echavarria) Requests [...] (11/17/2020): Added automatically from request for surgery [id number] Rectal pain 11/17/2020 Overview (11/27/2020): Added automatically from request for surgery [id number] History of esophageal stricture 10/01/2020 Overview (10/01/2020): Added automatically from request for surgery [id number] Nausea 09/01/2020 Cellulitis 08/22/2020 Assessment & Plan (08/22/2020 2:08 PM TIP CEMENTER): 55 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 No sick contacts. ANC 0.1. - cefepime started - RVP, blood cultures, UA pending - CXR - IVF Elevated LFTs 07/15/2020 Assessment & Plan (07/15/2020 8:51 PM TIP CEMENTER): AST/ALT/Alk phos all in 200's noted on labs 07/14. Was taken off fluconazole as a result, T bili 1.0 at that time. 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 - continue home prophylaxis w/voriconazole - continue allopurinol - Monitor Uric acid/bili/LDH - holding cipro/bactrim prophylaxis - follows with Dr. Augustine Pancytopenia 06/23/2020 Assessment & Plan (07/15/2020 8:49 PM TIP CEMENTER): Due to chemotherapy - continue to monitor - holding DVT PPX Prostate cancer 04/28/2012 Assessment & Plan (07/15/2020 8:53 PM TIP CEMENTER): localized s/p prostatectomy without RT in 2012 Encounters Date Type Department Care Team Description 02/22/2025 11:30 AM CDT Office Visit [facility] Bone Marrow Transplant [address] [address] [address] [place] [address] Za Crane, INDRA Hairy cell leukemia, in remission (HCC) (Primary Dx) 02/19/2025 4:13 PM CDT - 02/19/2025 11:59 PM CDT Hospital Encounter [address] [place] [address] CKD (chronic kidney disease) stage 2, GFR 60-89 ml/min Discharge Disposition: Discharge to home or self care 02/19/2025 3:00 PM CDT Office Visit [facility] Nephrology [address] Advanced Medicine 5th [place] [address] [place] [address] Blayne Alvarez MD CKD (chronic kidney disease) stage 2, GFR 60-89 ml/min (Primary Dx) 02/15/2025 4:15 PM CDT Lab [facility] Advanced [facility] Advanced Medicine ([facility]) [address] [place] [address] Hairy cell leukemia, in remission (HCC) from Last 3 Months Immunizations Immunization Administration Dates Next Due Pfizer SARS-CoV-2 Monovalent Vaccination (12+ Yrs) PURPLE 05/02/2021 Surgical History Surgery Date Site/Laterality Comments [place] VASECTOMY UNI/BI SPX W/POSTOP SEMEN EXAMS Surgery [...] on file Legal Sex Male 6:53 AM TIP CEMENTER Gender Identity Not on file Sexual Orientation [...] CDT HEPATITIS PANEL, ACUTE Routine 8:53 PM TIP CEMENTER from Last 3 Months or Most Recently Relevant to Health Maintenance Results * Urinalysis reflex to microscopic (02/19/2025 4:13 PM CDT) Color, ur Straw Yellow Clarity, ur Clear Clear [facility] Specific gravity, ur 1.005 1.003 - 1.030 [facility] pH, urine 6.0 [facility] Comment: Interpretive Data U rine pH is affected by diet, medications, systemic acid-base disturbances, and renal tubular function. pH may affect urinary stone formation. For example, urine pH below 6.0 may help reduce the tendency for calcium phosphate stones and pH greater than 6.0 may reduce the tendency for uric acid stone formation. Source: [facility] Current Interpretive Data was last revised on 2017 Protein, ur ql Negative Negative [facility] Glucose, ur ql Negative Negative [facility] Ketones, ur Negative Negative [facility] Bilirubin, ur Negative Negative [facility] Blood, ur Negative Negative [facility] Urobilinogen, ur <2.0 <2.0 mg/dL [facility] Nitrite, ur Negative Negative [facility] Leukocyte esterase, ur Negative Negative [facility] UA reflex comment Reflex conditions for microscopic UA not met. [facility] Urine 02/19/2025 4:13 PM CDT 02/19/2025 5:20 PM CDT us Blayne Alvarez MD LAB URINE ORDERABLES Fin al Result [facility] Department [place] [address] * POCT urinalysis dipstick (02/19/2025 3:01 PM CDT) Glucose, ur, POC Negative Negative Bilirubin, ur, POC Negative Negative Ketones, ur, POC Negative Negative Specific [place], POC Comment:<=1.005 Blood, ur, POC Negative Negative pH, ur, POC 5.5 5.0 - 8.0 Protein, ur, POC Negative Negative Urobilinogen, urine, POC 0.2 0.2 - 1.0 mg/dL Nitrite, ur, POC Negative Negative Leukocytes, ur, POC Negative Negative Lot Number [id number] Urine 02/19/2025 3:01 PM CDT Blayne Alvarez MD POINT OF CARE TEST ORDER JULIANNA Final Result * eGFR (02/15/2025 2:53 PM CDT) Pathologist [facility] eGFR 71 >=60 mL/min/1. 73 m2 Comment: [...] MD LAB BLOOD ORDERABLES Faye mendez Result [facility] Department [place] [address] * Differential, auto (02/15/2025 2:53 PM CDT) Pathologist [facility] Neutrophil abs 2.55 1.50 - 6.50 K/cumm Imm gran abs 0.02 0.00 - 0.10 K/cumm [facility] Lymphocyte abs 1.11 0.80 - 3.30 K/cumm [facility] Monocyte abs 0.33 0.20 - 0.80 K/cumm [facility] Eosinophil abs 0.07 0.00 - 0.50 K/cumm [facility] Basophil abs 0.04 0.00 - 0.10 K/cumm [facility] Neutrophil pct 61.9 % [facility] Comment: Interpretive Data Percent cell count reference ranges are not reported, since discordance with absolute values may lead to misinterpretation of CBC data. Current Interpretive Data was last revised on 2017. Imm gran pct 0.5 % [facility] Comment: Interpretive Data Percent cell count reference ranges are not reported, since discordance with absolute values may lead to misinterpretation of CBC data. Current Interpretive Data was last revised on 2017. Lymphocyte pct 26.9 % J [facility] Comment: Interpretive Data Percent cell count reference ranges are not reported, since discordance with absolute values may lead to misinterpretation of CBC data. Current Interpretive Data was last revised on 2017. Monocyte pct 8.0 % [facility] Comment: Interpretive Data Percent cell count reference ranges are not reported, since discordance with absolute values may lead to misinterpretation of CBC data. Current Interpretive Data was last revised on 2017. Eosinophil pct 1.7 % [facility] Comment: Interpretive Data Percent cell count reference ranges are not reported, since discordance with absolute values may lead to misinterpretation of CBC data. Current Interpretive Data was last revised on 2017. Basophil pct 1.0 % [facility] Comment: Interpretive Data Percent cell count reference ranges are not reported, since discordance with absolute values may lead to misinterpretation of CBC data. Current Interpretive Data was last revised on 2017. Blood 02/15/2025 2:53 PM CDT 02/15/2025 3:10 PM CDT us Wili Knutson MD LAB BLOOD ORDERABLES Faye mendez Result [facility] Department of Laboratories [place], [place] [id number] * CBC with auto differential (02/15/2025 2:53 PM CDT) WBC 4.12 3.80 - 9.90 K/cumm Hgb 15.3 13.0 - 17.5 g/dL [facility] Hct 44.9 38.9 - 50.3 % [facility] Plt 182 150 - 400 K/cumm [facility] MPV 10.4 9.1 - 12.3 fL [facility] RBC 5.01 4.30 - 5.80 M/cumm [facility] MCV 89.6 81.3 - 96.4 fL [facility] MCH 30.5 27.1 - 33.3 pg [facility] MCHC 34.1 32.3 - 35.7 g/dL [facility] RDW CV 13.6 11.1 - 14.9 % [facility] RDW SD 44.9 35.7 - 48.1 fL [facility] NRBC abs 0.00 0.00 - 0.01 K/cumm [facility] Blood 02/15/2025 2:53 PM CDT 02/15/2025 3:10 PM CDT Wili Knutson MD LAB BLOOD ORDERABLES Faye l Result Performing Organization Address [facility]/ZIP Co de Phone Number [facility] Department [place] [address] * Lactate dehydrogenase (LD) (02/15/2025 2:53 PM CDT) [facility] Lactate dehydrogenase (LDH) 159 100 - 250 Units/L Blood 02/15/2025 2:53 PM CDT 02/15/2025 3:09 PM CDT Wili Knutson MD LAB BLOOD ORDERABLES Faye l Result [facility] [place] [address] * (ABNORMAL) Comprehensive metabolic panel (02/15/2025 2:53 PM CDT) [facility] Sodium 138 135 - 145 mmol/L Potassium, pl 4.2 3.3 - 4.9 mmol/L [facility] Chloride 102 97 - 110 mmol/L [facility] CO2 30 22 - 32 mmol/L [facility] Anion gap 6 2 - 15 mmol/L [facility] BUN 13 6 - 25 mg/dL [facility] Creatinine 1.18 0.80 - 1.30 mg/dL [facility] Glucose 87 70 - 199 mg/dL [facility] Comment: Interpretive Data Fasting glucose >/= [...] 2022. Calcium 9.1 8.5 - 10.3 mg/dL [facility] Bilirubin, total 0.8 0.1 - 1.2 mg/dL [facility] Protein, pl 6.4(L) 6.5 - 8.5 g/dL [facility] Albumin 4.3 3.5 - 5.0 g/dL [facility] Alk phos 48 40 - 130 Units/L [facility] ALT 12 7 - 55 Units/L [facility] AST 20 10 - 50 Units/L [facility] Blood 02/15/2025 2:53 PM CDT 02/15/2025 3:09 PM CDT Wili Knutson MD LAB BLOOD ORDERABLES Faye mendez Result [facility] [place] [address] * Colonoscopy (04/27/2024 1:00 PM CDT) Anatomical Region Laterality Modality Other Narrative Procedure Note Dana Mott MD - 04/27/2024 1:00 PM CDT ENDOSCOPY LAB Patient Name: William Bowling Procedure Date: 04/27/2024 1:00 PM Date of : 1965 Admit Type: Outpatient Age: 58 Gender: Male Attending MD: Dana Mott M.D. Room: [facility] ENDOSCOPY ROOM 05 Note Status: Finalized [...] The scope was passed under direct vision.The [id number] was introduced through the anusand advanced to [...] normal business hours, please callthe Nurse Coordinator: [phone] - After hours, evening, nights, weekends andholidays, please call the hospital cherry picker operator at and ask for the GI fellow field operations technician. Electronically signed by Dana Mott MD Dana Mott M.D. 04/27/2024 1:17:27 PM Number of Addenda: 0 Note Initiated On: 04/27/2024 1:00 PM us Dana Mott MD ENDOSCOPY PROCEDURES Final Res ult * Hepatitis panel, acute (07/15/2020 8:53 PM TIP CEMENTER) Hep A IgM Nonreactive Nonreactive [facility] Comment: Interpretive Data: If Hep A IgM Ab is reported as Equivocal, a new sample should be drawn in two weeks for testing. Current interpretive data was last revised on 19. Hep B core IgM Nonreactive Nonreactive [facility] Comment: Interpretive Data If HepB Core IgM Ab is reported as Equivocal, a new sample should be drawn in two weeks for testing. Current interpretive data was last revised on 19. Hep C Ab Nonreactive Nonreactive [facility] Comment:Antibodies to HCV no t detected. Does NOT exclude the possibility of recent exposure to HCV. HepBsAg Nonreactive Nonreactive [facility] Blood specimen (specimen) 07/15/2020 8:53 PM TIP CEMENTER 07/15/2020 9:08 PM TIP CEMENTER Murray Borrego MD LAB MICROBIOLOGY - GENERAL ORDERABLES Edited Result - Final [facility] Department [place] [address] from Last 3 Months or Most Recently Relevant to Health Maintenance Insurance [facility] Advance Directives For more information, please contact: [phone] * Full Code (Latest Code Status on [...] 8:08 PM 07/19/2020 5:13 PM Care Teams Side Door Man Relationship Specialty Start Date End Date Adarsh Rivera MD [address] [facility] [address] [place] [address] PCP - General 04/19/17 Wili Knutson MD [address] DIV IM BONE MARROW TRANSPLANT[address] [place] [address] Medical Oncologist/Public Services Assistant Medical Oncology 08/12/23
--- NOTE | 2025-04-26 05:18 | ED_ITS ---
HPI - Extremity Injury (Lower) General Chief Complaint: Extremity Injury, Lower Stated Complaint: Unknown History of Present Illness HPI Narrative: 59-year-old male presenting to the emergency depart with left posterior calf cramping and pain sensations that lasted several minutes. He describes as a gradual onset of significant pain that was not precipitated by any factors such as traumatic injuries, stretching or injury. Denies any audible popping or cracking sensations and stated that he was having some pain when he tried to walk on his left leg afterwards. He called EMS for assistance as he was concerned he was having a blood clot. Prior to ambulance arrival his symptoms had completely abated and he is no longer having any symptoms at all. He is approximately 2 days postop from a robotic assisted umbilical hernia repair without complication. This was done outpatient and he was sent home immediately afterwards. He has no complaints from the surgical procedure and is only symptoms was the left calf pain. No calf asymmetry or swelling. No history of DVT. No family history of thromboembolic disease. Does not take any anticoagulants. Related Data Home Medications ?Medication ?Instructions ?Recorded ?Confirmed ?Last Taken ?Type magnesium carb,citrate,oxide 300 mg PO DAILY 04/12/25 04/12/25 Unknown History (Magnesium Complex) omeprazole 20 mg capsule,delayed 20 mg PO DAILY 04/12/25 04/12/25 Unknown History release Allergies Allergy/AdvReac Type Severity Reaction Status Date / Time prochlorperazine (From AdvReac Other Verified 04/23/25 07:00 Compazine) Review of Systems 2 Review of Systems: As reviewed above in [facility] Past Medical History Medical History History of leukemia 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 Medial epicondylitis, left elbow Nevus of scalp Surgical History Surgical History S/P prostatectomy Family History Family History Father Malignant neoplasm of prostate Family history of malignant neoplasm of brain Social History Social History Social History: Smoking status: Never smoker Second hand tobacco smoke exposure: No Alcohol intake: never Substance use: never Substance use type: does not use Do You Feel Safe in your Home?: Yes Lack of Transportation: No Lack of Food: Never True Current Housing: I Have Housing Concerned About Future Housing: No Difficulty Paying Gas/Electric Bills: No Difficulty Paying for Meds: No Currently Unemployed: No Education: Bachelor's Degree Difficulty w/ Childcare or Family Care: No Living arrangements: with family Occupation/Education: occupation Gender identity (if verbalized by the patient): Male Sexual Orientation (if Verbalized by the Patient): Straight or Heterosexual Spiritual care concerns: No Exam 2 Narrative: GENERAL: [Well-appearing, well-nourished, and in no acute distress.] HEAD: [Normocephalic, atraumatic.] EYES: [PERRLA and EOMI.] ENT: Nares clear, no rhinorrhea or epistaxis. Mucous membranes moist. NECK: Supple. CHEST: [Clear to auscultation. No respiratory distress.] HEART: [Regular rate and rhythm]. No murmur heard. [Normal peripheral pulses.] ABDOMEN: [Soft, nondistended], [nontender], [No rigidity or guarding] EXTREMITIES: Normal range of motion. [No edema.] SKIN: Warm, dry, no rash. NEURO: [No focal deficits]. Alert and oriented [x3.] PSYCH: [Normal mood and affect.] Course Vital Signs Vital signs: Vital Signs Temperature 37.1 C 04/26/25 05:40 Pulse Rate 58 L 04/26/25 05:40 Respiratory Rate 16 04/26/25 05:40 Blood Pressure 124/79 04/26/25 05:40 Pulse Oximetry 98 04/26/25 05:40 Oxygen Delivery Room Air 04/26/25 05:40 Temperature 37.1 C 04/26/25 05:45 Pulse Rate 83 04/26/25 07:18 Respiratory Rate 16 04/26/25 07:18 Blood Pressure 126/73 04/26/25 07:18 Pulse Oximetry 100 04/26/25 07:18 Oxygen Delivery Room Air 04/26/25 05:40 MDM - Extremity Injury (Lower) MDM Narrative Medical decision making narrative: 59-year-old male presenting to the emergency depart with left posterior calf cramping and pain sensations that lasted several minutes. He describes as a gradual onset of significant pain that was not precipitated by any factors such as traumatic injuries, stretching or injury. Denies any audible popping or cracking sensations and stated that he was having some pain when he tried to walk on his left leg afterwards. He called EMS for assistance as he was concerned he was having a blood clot. Prior to ambulance arrival his symptoms had completely abated and he is no longer having any symptoms at all. He is approximately 2 days postop from a robotic assisted umbilical hernia repair without complication. This was done outpatient and he was sent home immediately afterwards. He has no complaints from the surgical procedure and is only symptoms was the left calf pain. No calf asymmetry or swelling. No history of DVT. No family history of thromboembolic disease. Does not take any anticoagulants. Patient is not any acute physical or respiratory distress his examination is normal. No signs of calf asymmetry or calf cramping or any muscle spasms on exam. Full range of motion of the ankle and knee. Ambulating without difficulty. Vital signs are all normal without any tachycardia, fever, hypoxia or blood pressure concerns. 2+ pulses. Given his unremarkable physical examination very unlikely that he had a blood clot most likely had a muscle spasm, charley horse. Patient is adamant about potential DVT so a workup was ordered including CBC, BMP, PT, PTT and dimer. Do not have ultrasound at this hour but if dimer is negative he can be safely discharged. Labs unremarkable, dimer negative. Safe for discharge home at this time. Lab Data 04/26/25 05:35 04/26/25 05:35 Labs: Lab Results 04/26/25 Range/Units 05:35 WBC 6.1 (4.5-10.0) K/mm3 RBC 4.68 (4.6-6.20) M/mm3 Hgb 14.4 (14.0-18.0) g/dL Hct 43.9 (42.0-52.0) % MCV 93.8 (80-100) fl MCH 30.8 (26-34) pg MCHC 32.8 (32-36) g/dl RDW 14.0 (11.5-14.5) % Plt Count 161 (150-375) k/mm3 MPV 10.1 (7.4-10.4) fl Immature Gran % (Auto) 0.3 (0-0.5) % Neut % (Auto) 76.7 H (45.5-73.1) % Lymph % (Auto) 13.1 L (18.3-44.2) % [place]ois % (Auto) 8.7 H (2.6-8.5) % Eos % (Auto) 0.7 (0-4.4) % Baso % (Auto) 0.5 (0.2-1.2) % Lymph # (Auto) 0.80 L (0.9-3.2) K/mm3 [place]ois # (Auto) 0.5 (0.1-0.6) K/mm3 Eos # (Auto) 0.0 (0-0.3) K/mm3 Baso # (Auto) 0.0 (0.0-0.1) K/mm3 Abs Immat Gran (auto) 0.02 (0.00-0.031) K/mm3 Absolute Neuts (auto) 4.7 (1.3-6.7) K/mm3 Absolute Nucleated RBC 0.000 (0.0-0.012) K/mm3 Nucleated RBC % 0.0 (0.0-0.2) % PT 13.7 (11.1-14.7) Seconds INR 1.0 APTT 25.1 (22.3-36.8) Seconds D-Dimer 0.39 (<0.48) ug/mL Sodium 136 L (137-145) mmol/L Potassium 4.4 (3.4-5.0) mmol/L Chloride 105 (98-107) mmol/L Carbon Dioxide 28 (22-30) mmol/L Anion Gap 3 L (4-12) mmol/L BUN 12 (9-20) mg/dL Creatinine 1.05 (0.7-1.3) mg/dL Estim Creat Clear Calc 66 ml/min Estimated GFR > 60 (59 - ) Glucose 109 (65-110) mg/dL Calcium 9.0 (8.4-10.2) mg/dL Discharge Plan Discharge Clinical Impression: Cramp in lower leg Patient Disposition: Home Condition: Stable Instructions: Antibiotic Form Additional Instructions: Blood clot level is undetectable, normal laboratory studies otherwise. Unknown exactly what caused the symptoms but most likely a severe muscle cramps which has resolved. Maintain good hydration, take Tylenol and pain control medications. Return with any emergent concerns. Patient Language: Fijian Prescriptions: No Action omeprazole 20 mg capsule,delayed release(DR/EC) 20 mg PO DAILY Magnesium Complex 300 mg magnesium tablet 300 mg PO DAILY hydrocodone-acetaminophen 5-325 mg tablet 1 tablet PO Q4H PRN (Reason: pain) Qty: 10 0RF ibuprofen 800 mg tablet 800 mg PO Q8H PRN (Reason: pain) Qty: 20 0RF diqpjtkxnh-eqaispwrikkko-sajv 50-325-40 mg capsule 1 cap PO Q6H PRN (Reason: pain) Qty: 60 0RF rizatriptan [Maxalt-FRONT END DEVELOPER] 10 mg tablet,disintegrating 10 mg PO Q2-4H PRN (Reason: migraine headache) Qty: 12 10RF Rx Instructions: Administer at first sign of migraine. If symptoms persist, may repeat dose after 2 hours. Do not exceed 2 doses in 24-hour period. Limit use to <10 days per month. tadalafil [Cialis] 5 mg tablet 2.5 mg PO DAILY Qty: 30 5RF Follow-up/Referrals: Adarsh Rivera MD [Primary Care Provider] - Time of Disposition: 06:48
[2025-04-26 05:40] VITALS: BP 124/79; PULSE 58; RESP 16; TEMP 37.1; O2SAT 98
[2025-04-26 05:45] VITALS: BP 124/79; PULSE 56; RESP 16; TEMP 37.1; O2SAT 98
[2025-04-26 05:47] LABS: Hematocrit 43.9 % (42.0-52.0); Hemoglobin 14.4 g/dL (14.0-18.0); Immature Granulocyte Percent A 0.3 % (0-0.5); Lymphocytes Absolute Auto 0.80 K/mm3 (0.9-3.2); Mean Corpuscular HGB Conc 32.8 g/dl (32-36); Mean Corpuscular Hemoglobin 30.8 pg (26-34); Mean Corpuscular Volume 93.8 fl (80-100); Nucleated Red Blood Cells Absolute Auto 0.000 K/mm3 (0.0-0.012); Nucleated Red Blood Cells Perc 0.0 % (0.0-0.2); Platelet Count Result 161 k/mm3 (150-375); Red Blood Count 4.68 M/mm3 (4.6-6.20); White Blood Count 6.1 K/mm3 (4.5-10.0)
[2025-04-26 05:58] LABS: INR 1.0; Prothrombin Time 13.7 Seconds (11.1-14.7)
[2025-04-26 05:59] LABS: Partial Thromboplastin Time 25.1 Seconds (22.3-36.8)
[2025-04-26 06:15] LABS: Anion Gap 3 mmol/L (4-12); Blood Urea Nitrogen 12 mg/dL (9-20); Calcium 9.0 mg/dL (8.4-10.2); Carbon Dioxide 28 mmol/L (22-30); Chloride 105 mmol/L (98-107); Estimated CRCL calculation 66 ml/min; Estimated Glomerular Filt Rate > 60; Glucose 109 mg/dL (65-110); Potassium 4.4 mmol/L (3.4-5.0); Sodium 136 mmol/L (137-145)
[2025-04-26 06:30] VITALS: BP 121/76; PULSE 62; RESP 15; O2SAT 98
[2025-04-26 07:18] VITALS: BP 126/73; PULSE 83; RESP 16; O2SAT 100
== END 2025-04-26 07:22 | disposition home or self-care (01) ==
PROVIDERS: Emergency Provider Student in an Organized Health Care Education/Training Program; PCP Family Medicine
DX: R25.2 Cramp and spasm (principal); Z85.6 Personal history of leukemia; Z90.79 Acquired absence of other genital organ(s)
CPT/HCPCS: 36415; 80048; 85025; 85380; 85610; 85730; 99283

== ENCOUNTER 2025-08-02 15:19 | Outpatient (CLI) | payer OTHER, SELFPAY ==
--- OUTSIDE RECORDS SUMMARY | 2025-08-02 15:49 | XMS_ITS | Encounter Summary ---
Author Organization [facility] Address [address] [place] [address] Phone Care Team Providers Care Staging Technician Name Role Phone Adarsh Rivera MD Primary Care Provider Oswaldo Augustine MD PhD Unavailable [phone] Wili Knutson MD Unavailable [phone] Encounter Details Date Type Department Care Team (Late st Contact Info) Description 04/02/2022 Telephone [facility] Medicine Oncology [address] [place] [address] Yen Hall, B.A. 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 Gender Identity Not on file Sexual Orientation Not on file documented as of this encounter Plan of Treatment Not on file documented as of this encounter Visit Diagnoses Not on filedocumented in this encounter Care Teams Staging Technician Relationship Specialty Start Date End Date Adarsh Rivera MD [address] [place] [address] PCP - General 04/19/17 Oswaldo Augustine MD PhD [address] [place] [address] Consulting Physician Medical Oncology 06/23/20 3 Wili Knutson MD [address] DIV IM BONE MARROW TRANSPLANT, [address] [place] [address] Medical Oncologist/Supervisor [employer] Medical Oncology 08/12/23 documented as of this encounter
--- OUTSIDE RECORDS SUMMARY | 2025-08-02 15:49 | XMS_ITS | Encounter Summary ---
Author Organization [facility] Address [address] [place] [address] Phone Care Team Providers Care Mobile Home Laborer Name Role Phone Adarsh Rivera MD Primary Care Provider Oswaldo Augustine MD PhD Unavailable [phone] Wili Knutson MD Unavailable [phone] Reason for Visit * Reason Onset Date Comments SCHEDULE UPDATE 09/01/2020 Encounter Details Date Type Department Care Team (Late st Contact Info) Description 09/01/2020 Telephone [facility] Medicine Oncology [address] 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 Gender Identity Not on file Sexual Orientation Not on file documented as of this encounter Functional Status documented as of this encounter Plan of Treatment Not on file documented as of this encounter Visit Diagnoses Not on filedocumented in this encounter Care Teams Mobile Home Laborer Relationship Specialty Start Date End Date Adarsh Rivera MD [address] [place], [place] [id number] PCP - General 04/19/17 Oswaldo Augustine MD PhD [address] [place] [address] Consulting Physician Medical Oncology 06/23/20 3 Wili Knutson MD [address] DIV IM BONE MARROW TRANSPLANT[address] [place] [address] Medical Oncologist/World Designer Medical Oncology 08/12/23 documented as of this encounter
--- OUTSIDE RECORDS SUMMARY | 2025-08-02 15:49 | XMS_ITS | Encounter Summary ---
Author Organization [facility] Address [address] [place] [address] Phone Care Team Providers Care Dental Service Chief Name Role Phone Adarsh Rivera MD Primary Care Provider Oswaldo Augustine MD PhD Unavailable [phone] Wili Knutson MD Unavailable [phone] Encounter Details Date Type Department Care Team (Latest Contact Info) Description 06/17/2020 Orders Only [facility] Scanning, Provider Social History Tobacco Use Types Packs/Day Years Used Date Smoking Tobacco: Never Sex and Gender Information Value Date Recorded Sex Assigned at Not on file Legal Sex Male 6:53 AM CLIENT ADVOCATE Gender Identity Not on file Sexual Orientation [...] COVID: Suspected 07/15/2020 07/15/2020 07/16/2020 3:38 AM CLIENT ADVOCATE Respiratory Infection (GLIL), contact + droplet Comment:Automatically added due to negative COVID-19 result. Patient classified as Low Risk for COVID-19 and has one negative COVID-19 test. Patient meets criteria for COVID-19 isolation discontinuation 07/16/2020 07/16/2020 07/16/2020 7:[address] documented as of this encounter Care Teams Dental Service Chief Relationship Specialty Start Date End Date Adarsh Rivera MD [address] [place] [address] PCP - General 04/19/17 Oswaldo Augustine MD PhD [address] [place] [address] Consulting Physician Medical Oncology 06/23/20 3 Wili Knutson MD [address] DIV IM BONE MARROW TRANSPLANT[address] [place] [address] Medical Oncologist/Patient Scheduler Medical Oncology 08/12/23 documented as of this encounter
--- OUTSIDE RECORDS SUMMARY | 2025-08-02 15:49 | XMS_ITS ---
Author Organization [facility] Address [address] [place] [address] Care Team Providers Care Resident Services Coordinator Name Role Phone Adarsh Rivera MD Primary Care Provider Wili Knutson MD Unavailable [phone] Active Problems Patient Care Coordination No te Formatting of this note is d ifferent from the original. BMT Inpatient Care Coordination Overview Diagnosis Hairy Cell Treatment Plan BMT/IEC/DCI Plan Clinical Trial Inpatient Floor 9800 Reason for Admission cellulitis Transplant/IEC Planning Patient Education Completed Consents Done IDMs Insurance Approvals/Issues Discharge Planning Anticipated Discharge Date Issue to be Resolved Before Discharge Living Situation/Distance from [facility] Discharge To [place], [place] 30 minutes Caregiver Souse (Shelbi) Requests [...] (11/17/2020): Added automatically from request for surgery [id number] Rectal pain 11/17/2020 Overview (11/27/2020): Added automatically from request for surgery [id number] History of esophageal stricture 10/01/2020 Overview (10/01/2020): Added automatically from request for surgery [id number] Nausea 09/01/2020 Cellulitis 08/22/2020 Assessment & Plan (08/22/2020 2:08 PM CONTAINER WASHER MACHINE): 55 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 No sick contacts. ANC 0.1. - cefepime started - RVP, blood cultures, UA pending - CXR - IVF Elevated LFTs 07/15/2020 Assessment & Plan (07/15/2020 8:51 PM CONTAINER WASHER MACHINE): AST/ALT/Alk phos all in 200's noted on labs 07/14. Was taken off fluconazole as a result, T bili 1.0 at that time. 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 - continue home prophylaxis w/voriconazole - continue allopurinol - Monitor Uric acid/bili/LDH - holding cipro/bactrim prophylaxis - follows with Dr. Augustine Pancytopenia 06/23/2020 Assessment & Plan (07/15/2020 8:49 PM CONTAINER WASHER MACHINE): Due to chemotherapy - continue to monitor - holding DVT PPX Prostate cancer 04/28/2012 Assessment & Plan (07/15/2020 8:53 PM CONTAINER WASHER MACHINE): localized s/p prostatectomy without RT in 2011 [...]
--- OUTSIDE RECORDS SUMMARY | 2025-08-02 15:49 | XMS_ITS | Encounter Summary ---
Author Organization [facility] Address [address] [place] [address] Phone Care Team Providers Care Count Team Member Name Role Phone Adarsh Rivera MD Primary Care Provider Oswaldo Augustine MD PhD Unavailable [phone] Wili Knutson MD Unavailable [phone] Encounter Details Date Type Department Care Team (Late st Contact Info) Description 04/06/2022 Telephone [facility] Medicine Oncology [address] [facility] [address] [place] [address] Yen Hall, B.A. 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 Gender Identity Not on file Sexual Orientation Not on file documented as of this encounter Plan of Treatment Not on file documented as of this encounter Visit Diagnoses Not on filedocumented in this encounter Care Teams Count Team Member Relationship Specialty Start Date End Date Adarsh Rivera MD [address] [place] [address] PCP - General 04/19/17 Oswaldo Augustine MD PhD [address] [place] [address] Consulting Physician Medical Oncology 06/23/20 3 Wili Knutson MD [address] DIV IM BONE MARROW TRANSPLANT, [address] [place] [address] Medical Oncologist/Engineering Geologist Medical Oncology 08/12/23 documented as of this encounter
--- OUTSIDE RECORDS SUMMARY | 2025-08-02 15:49 | XMS_ITS | Encounter Summary ---
Author Organization [facility] Address [address] [place] [address] Phone Care Team Providers Care Buckle Stringer Name Role Phone Adarsh Rivera MD Primary Care Provider Oswaldo Augustine MD PhD Unavailable [phone] Wili Knutson MD Unavailable [phone] Encounter Details Date Type Department Care Team (Late st Contact Info) Description 09/10/2020 Telephone [facility] Oncology [address] [facility] 7th [place] [address] [place] [address] Chloe Marcano Social History Tobacco Use Types Packs/Day Years Used Date Smoking Tobacco: Never Smokeless Tobacco: Never PHQ-2 Answer Date Recorded PHQ-2 Total Score (If total score is 3 or more points, staff should administer the PHQ-9) 0 07/11/2020 Sex and Gender Information Value Date Recorded Sex Assigned at Not on file 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 Gender Identity Not on file Sexual Orientation Not on file documented as of this encounter Plan of Treatment Not on file documented as of this encounter Visit Diagnoses Not on filedocumented in this encounter Care Teams Buckle Stringer Relationship Specialty Start Date End Date Adarsh Rivera MD [address] [facility] [address] [place] [address] PCP - General 04/19/17 Oswaldo Augustine MD PhD [address] [facility] [address] [place] [address] Consulting Physician Medical Oncology 06/23/20 3 Wili Knutson MD [address] IM BONE MARROW TRANSPLANT, [address] [place] [address] Medical Oncologist/Jewel Bearing Broacher Medical Oncology 08/12/23 documented as of this encounter
--- OUTSIDE RECORDS SUMMARY | 2025-08-02 15:49 | XMS_ITS | Encounter Summary ---
Author Organization [facility] Address [address] [place] [address] Phone Care Team Providers Care Oracle Fusion Developer Name Role Phone Adarsh Rivera MD Primary Care Provider Wili Knutson MD Unavailable [phone] Encounter Details Date Type Department Care Team (Late st Contact Info) Description 03/21/2024 Telephone [facility] Medicine Oncology [address] [facility] [address] [place] [address] Yen Hall, B.A. 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
--- OUTSIDE RECORDS SUMMARY | 2025-08-02 15:49 | XMS_ITS | Clinical Summary ---
Author Organization [facility] Address [address] [place] [address] Care Team Providers Care Home Care Manager Rn Name Role Phone Adarsh Rivera MD Primary Care Provider Wili Knutson MD Unavailable [phone] Allergies Active Allergy Reactions Criticality Noted Date Comments Prochlorperazine Other (See comments) Medium 0 Tightness, tingling, and twitching on right side of the mouth Medications butalbital-acetamin ophen-caffeine (ESGIC) 50-325-40 mg per tabletIndications:P ancytopenia 1 tablet as needed for migraine (2nd line after rizatriptan) Active omeprazole (PriLOSEC) 20 mg capsuleIndications: Pancytopenia daily Active rizatriptan PRECISION DEVICES INSPECTOR/TESTER (MAXALT-PRECISION DEVICES INSPECTOR/TESTER) 10 mg disintegrating tablet as needed 1 [...] be Resolved Before Discharge Living Situation/Distance from [facility] Discharge To [place], [place] 30 minutes Caregiver Peyman Echavarria) Requests [...] (11/17/2020): Added automatically from request for surgery [id number] Rectal pain 11/17/2020 Overview (11/27/2020): Added automatically from request for surgery [id number] History of esophageal stricture 10/01/2020 Overview (10/01/2020): Added automatically from request for surgery [id number] Nausea 09/01/2020 Cellulitis 08/22/2020 Assessment & Plan (08/22/2020 2:08 PM NEW CAR INSPECTOR): 55 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 No sick contacts. ANC 0.1. - cefepime started - RVP, blood cultures, UA pending - CXR - IVF Elevated LFTs 07/15/2020 Assessment & Plan (07/15/2020 8:51 PM NEW CAR INSPECTOR): AST/ALT/Alk phos all in 200's noted on labs 07/14. Was taken off fluconazole as a result, T bili 1.0 at that time. 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 - continue home prophylaxis w/voriconazole - continue allopurinol - Monitor Uric acid/bili/LDH - holding cipro/bactrim prophylaxis - follows with Dr. Augustine Pancytopenia 06/23/2020 Assessment & Plan (07/15/2020 8:49 PM NEW CAR INSPECTOR): Due to chemotherapy - continue to monitor - holding DVT PPX Prostate cancer 04/28/2012 Assessment & Plan (07/15/2020 8:53 PM NEW CAR INSPECTOR): localized s/p prostatectomy without RT in 2011 Immunizations Immunization Administration Dates Next Due Pfizer SARS-CoV-2 Monovalent Vaccination (12+ Yrs) PURPLE 05/02/2021 Surgical History Surgery Date Site/Laterality Comments SD VASECTOMY UNI/BI SPX W/POSTOP SEMEN EXAMS Surgery Vas Deferens Vasectomy - (Added by ADEN Conv) PROSTATECTOMY 09/12/2011 - 09/11/2012 Medical History Medical History Date Comments Personal history of other di seases of the digestive system History of constipation - (A dded by ADEN Conv) Personal history of other di seases [...] on file Legal Sex Male 6:53 AM NEW CAR INSPECTOR Gender Identity Not on file Sexual Orientation [...] Procedure Name Priority Date/Time Associated Diagnosis Comments COLONOSCOPY 04/27/2024 1:00 PM CDT HEPATITIS PANEL, ACUTE Routine 07/15/2020 8:53 PM NEW CAR INSPECTOR from Last 3 Months or Most Recently Relevant to Health Maintenance Results * Colonoscopy (04/27/2024 1:00 PM CDT) Anatomical Region Laterality Modality Other Narrative Procedure Note Dana Mott MD - 04/27/2024 1:00 PM CDT ENDOSCOPY LAB Patient Name: William Bowling Procedure Date: 04/27/2024 1:00 PM Date of : 1965 Admit Type: Outpatient Age: 58 Gender: Male Attending MD: Dana Mott M.D. Room: [facility] ENDOSCOPY ROOM 05 Note Status: Finalized Procedure: [...] The scope was passed under direct vision.The [id number] was introduced through the anusand advanced to [...] normal business hours, please callthe Nurse Coordinator: [phone] - After hours, evening, nights, weekends andholidays, please call the hospital cnc router operator at and ask for the GI fellow rawhide bone roller. Electronically signed by Dana Mott MD Dana Mott M.D. 04/27/2024 1:17:27 PM Number of Addenda: 0 Note Initiated On: 04/27/2024 1:00 PM us Dana Mott MD ENDOSCOPY PROCEDURES Final Res ult * Hepatitis panel, acute (07/15/2020 8:53 PM NEW CAR INSPECTOR) Hep A IgM Nonreactive Nonreactive [facility] Comment: Interpretive Data: If Hep A IgM Ab is reported as Equivocal, a new sample should be drawn in two weeks for testing. Current interpretive data was last revised on 19. Hep B core IgM Nonreactive Nonreactive [facility] Comment: Interpretive Data If HepB Core IgM Ab is reported as Equivocal, a new sample should be drawn in two weeks for testing. Current interpretive data was last revised on 19. Hep C Ab Nonreactive Nonreactive [facility] Comment:Antibodies to HCV no t detected. Does NOT exclude the possibility of recent exposure to HCV. HepBsAg Nonreactive Nonreactive [facility] Blood specimen (specimen) 07/15/2020 8:53 PM NEW CAR INSPECTOR 07/15/2020 9:08 PM NEW CAR INSPECTOR us Murray Borrego MD LAB MICROBIOLOGY - GENERAL ORDERABLES Edited Result - Final [facility] Department [place] [address] from Last 3 Months or Most Recently Relevant to Health Maintenance Insurance [facility] [employer] Address: [place] [address] [employer] Address: [address] [place] [address] [facility] Advance Directives For more information, please contact: [phone] * Full Code (Latest Code Status on [...] 8:08 PM 07/19/2020 5:13 PM Care Teams Home Care Manager Rn Relationship Specialty Start Date End Date Adarsh Rivera MD [address] [facility] [address] [place] [address] PCP - General 04/19/17 Wili Knutson MD [address] DIV IM BONE MARROW TRANSPLANT, [address] [place] [address] Medical Oncologist/Print Production Associate Medical Oncology 08/12/23
[2025-08-02 16:15] LABS: Hematocrit 46.5 % (42.0-52.0); Hemoglobin 15.5 g/dL (14.0-18.0); Mean Corpuscular HGB Conc 33.3 g/dl (32-36); Mean Corpuscular Hemoglobin 30.0 pg (26-34); Mean Corpuscular Volume 90.1 fl (80-100); Platelet Count Result 187 k/mm3 (150-375); Red Blood Count 5.16 M/mm3 (4.6-6.20); White Blood Count 4.9 K/mm3 (4.5-10.0)
[2025-08-02 16:18] LABS: Add Urine Microscopic? NO; Appearance Urine Clear (Clear); Glucose Urine UA Negative (Negative); Leukocyte Esterase Ur Negative LEU/UL (Negative); Nitrate Urine Negative (Negative); Specific Grav Ur 1.008 (1.001-1.035)
[2025-08-02 16:30] LABS: Alanine Aminotransferase 29 U/L (6-50); Albumin Level 4.3 g/dL (3.5-5.1); Alkaline Phosphatase 53 U/L (38-126); Anion Gap 4 mmol/L (4-12); Aspartate Amino Transferase 57 U/L (17-59); Bilirubin,Total 1.1 mg/dL (0.2-1.3); Blood Urea Nitrogen 16 mg/dL (9-20); Calcium 9.3 mg/dL (8.4-10.2); Carbon Dioxide 29 mmol/L (22-30); Chloride 103 mmol/L (98-107); Cholesterol 253 mg/dL (0-200); Estimated Glomerular Filt Rate > 60; Glucose 88 mg/dL (65-110); HDL Direct 82 mg/dL; Potassium 4.0 mmol/L (3.4-5.0); Sodium 136 mmol/L (137-145); Total Protein 7.0 g/dL (6.3-8.2); Triglycerides 51 mg/dL (<150)
[2025-08-02 17:06] LABS: Prostate Specific Antigen < 0.1 ng/mL (< OR = 4.0); Thyroid Stimulating Hormone 1.980 uIU/mL (0.465-4.680)
== END 2025-08-02 15:20 | disposition home or self-care (01) ==
LOC: ANHLAB 15:47
PROVIDERS: PCP Family Medicine; Visit Provider Family Medicine
DX: E78.2 Mixed hyperlipidemia (principal); Z00.00 Encounter for general adult medical examination without abnormal findings; Z85.46 Personal history of malignant neoplasm of prostate
CPT/HCPCS: 36415; 80053; 80061; 81003; 84153; 84443; 85027